=== PATIENT | female | born 1945 | race Caucasian/White ===

== ENCOUNTER 2016-02-19 23:16 | Inpatient (IN) | payer OTHER ==
[2016-02-19] MEDS ORDERED: VANCOMYCIN 1,000 MG in DEXTROSE 5%-WATER - 250 ML IVPB ONE (23:18)
[2016-02-19] MEDS ORDERED: PIPERACILLIN/TAZOB 3.375 GM/50 ML PRE-DOCKED IVPB ONE (23:18)
[2016-02-19 23:24] VITALS: BMI 24.6
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
[2016-02-19] MEDS ORDERED: AZITHROMYCIN IVPB 500 MG in DEXTROSE 5%-WATER - 250 ML IVPB ONE (23:34)
[2016-02-19] MEDS ORDERED: PANTOPRAZOLE SODIUM 40 MG in SODIUM CHLORIDE 100 ML IVPB ONE (23:34)
[2016-02-19] MEDS ORDERED: methylPREDNISolone NA SUCC 125 MG/2 ML VIAL IVPB ONE (23:34)
[2016-02-19] MEDS ORDERED: SODIUM CHLORIDE 500 ML IV STA (23:37)
[2016-02-20] MEDS ORDERED: VANCOMYCIN 1 GRAM (PRE-DOCKED) 250 ML IVPB ONE (00:42)
[2016-02-20 00:56] LABS: BASO % 0.3 % (0-2.0); HEMATOCRIT 34.8 % (32.4-45.2); HEMOGLOBIN 11.6 GM/dL (10.7-15.3); LYMPH % 11.6 % (8-40); MCH 29.9 pg (25.7-33.7); MCHC 33.2 g/dl (32.0-36.0); MEAN CELL VOLUME 89.9 fl (80-96); MEAN PLT VOLUME 8.6 fl (7.5-11.1); MONO % 5.7 % (3.8-10.2); NEUT % 82.4 % (42.8-82.8); PLATELET COUNT 192 K/MM3 (134-434); RBC 3.87 M/mm3 (3.60-5.2); RDW 16.4 % (11.6-15.6)
[2016-02-20 01:08] LABS: INR 1.31 (0.82-1.09); PROTHROMBIN TIME (PATIENT) 14.5 SEC (9.98-11.88)
[2016-02-20 01:09] LABS: VENOUS PH 7.61 (7.31-7.41); VENOUS PO2 41.1 mmHg (30-40)
[2016-02-20 01:10] LABS: VENOUS PC02 23.3 mmHg (41-51)
[2016-02-20 01:10] LABS: ACTIVATED PTT 29.6 SECONDS (26.9-34.4)
[2016-02-20 01:17] LABS: ALBUMIN 3.1 g/dl (3.4-5.0); ANION GAP 9 (8-16); BILIRUBIN,TOTAL 0.8 mg/dL (0.2-1.0); BLOOD UREA NITROGEN 29 mg/dL (7-18); CALCIUM 8.5 mg/dL (8.5-10.1); CHLORIDE 97 mmol/L (98-107); CO2 24 mmol/L (21-32); CREATININE 0.8 mg/dL (0.55-1.02); GLUCOSE,RANDOM 110 mg/dL (74-106); POTASSIUM 3.2 mmol/L (3.5-5.1); SGOT/AST 13 U/L (15-37); SGPT/ALT 14 U/L (12-78); SODIUM 130 mmol/L (136-145); TOT PROT 6.4 g/dl (6.4-8.2)
[2016-02-20] MEDS ORDERED: methylPREDNISolone NA SUCC 125 MG/2 ML VIAL ONE (01:18)
[2016-02-20 01:20] LABS: ALK PHOS 53 U/L (45-117); CREATINE PHOSPHOKINASE 38 IU/L (26-192)
[2016-02-20] MEDS ORDERED: POTASSIUM CHLORIDE 40 MEQ/30 ML UNIT DOSE CUP PEG ONE (01:26)
[2016-02-20] MEDS ORDERED: IBUPROFEN 800 MG/8 ML IJ IVPB ONE ×2 (02:05→05:00)
[2016-02-20] MEDS ORDERED: PIPERACILLIN/TAZOB 3.375 GM 50 ML IVPB ONE (02:07)
[2016-02-20] MEDS ORDERED: ALBUTEROL SO4 2.5/IPRATROPIUM 0.5 INH SOL 3 ML VIAL.NEB. NEB PRN (02:36)
[2016-02-20] MEDS ORDERED: POTASSIUM CHLORIDE 40 MEQ/30 ML UNIT DOSE CUP ONE (03:20)
[2016-02-20] MEDS ORDERED: AZITHROMYCIN IVPB 250 ML IVPB ONE (03:20)
[2016-02-20] MEDS: methylPREDNISolone NA SUCC 40 MG/1 ML VIAL IVPB SCH ×3 (05:00→22:13)
[2016-02-20] MEDS: INSULIN SLIDING SCALE (NOVOLOG) 1 VIAL SQ SCH ×4 (07:06→22:13)
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
[2016-02-20 08:50] LABS: BASO % 0.2 % (0-2.0); HEMOGLOBIN 10.2 GM/dL (10.7-15.3); LYMPH % 7.5 % (8-40); MCH 31.1 pg (25.7-33.7); MCHC 34.1 g/dl (32.0-36.0); MEAN CELL VOLUME 91.1 fl (80-96); MEAN PLT VOLUME 8.6 fl (7.5-11.1); MONO % 7.7 % (3.8-10.2); NEUT % 84.6 % (42.8-82.8); PLATELET COUNT 145 K/MM3 (134-434); RBC 3.29 M/mm3 (3.60-5.2); RDW 16.5 % (11.6-15.6); WHITE BLOOD COUNT 7.2 K/mm3 (4.0-10.0)
[2016-02-20 09:20] LABS: ALBUMIN 2.7 g/dl (3.4-5.0); ANION GAP 3 (8-16); BLOOD UREA NITROGEN 25 mg/dL (7-18); CALCIUM 8.1 mg/dL (8.5-10.1); CHLORIDE 99 mmol/L (98-107); CO2 25 mmol/L (21-32); GLUCOSE,RANDOM 144 mg/dL (74-106); SODIUM 127 mmol/L (136-145)
[2016-02-20 09:28] LABS: ALK PHOS 43 U/L (45-117); BILIRUBIN,TOTAL 0.7 mg/dL (0.2-1.0); CREATINE PHOSPHOKINASE 36 IU/L (26-192); CREATININE 0.6 mg/dL (0.55-1.02); SGOT/AST 10 U/L (15-37); SGPT/ALT 12 U/L (12-78); TOT PROT 5.6 g/dl (6.4-8.2)
[2016-02-20] MEDS: PIPERACILLIN/TAZOB 4.5 GM/100 ML PRE-DOCKED IVPB SCH ×2 (10:32→18:45)
[2016-02-20] MEDS: HEPARIN NA (PORCINE) 5,000 UNITS/ML 1ML VIAL SQ SCH ×2 (10:33→22:11)
[2016-02-20] MEDS: PANTOPRAZOLE SODIUM 100 ML IVPB SCH (10:33)
[2016-02-20] MEDS: ACETAMINOPHEN 325 MG TABLET (FP) PO PRN (11:21)
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
[2016-02-20] MEDS ORDERED: BISACODYL 10 MG SUPP.RECT RC PRN (13:04)
[2016-02-20] MEDS ORDERED: DEXTROSE 5%-0.45% SALINE 1,000 ML IV SCH (13:15)
[2016-02-20 13:35] LABS: CREATINE PHOSPHOKINASE 38 IU/L (26-192)
[2016-02-20 13:42] LABS: ARTERIAL BLD GAS O2 SATURATION 98.9 % (90-98.9); ARTERIAL BLOOD GAS BASE EXCESS 1.3 meq/l (-2-2); ARTERIAL BLOOD GAS PCO2 24.2 mmHg (35-45)
[2016-02-20 13:48] LABS: ALLENS TEST POSITIVE; ARTERIAL BLOOD GAS pH 7.57 (7.35-7.45)
[2016-02-20] MEDS ORDERED: MIDODRINE HCL 2.5 MG TABLET PO SCH (14:00)
[2016-02-20] MEDS: VANCOMYCIN 1 GRAM (PRE-DOCKED) 250 ML IVPB SCH (14:26)
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
[2016-02-20] MEDS: D5-1/2NS+40 MEQ KCL - 1,000 ML IV SCH (15:44)
--- NOTE | 2016-02-20 16:07 | EKG ---
Test Reason : Blood Pressure : / mmHG Vent. Rate : 067 BPM Atrial Rate : 067 BPM P-R Int : 126 ms QRS Dur : 072 ms QT Int : 430 ms P-R-T Axes : 053 060 089 degrees QTc Int : 454 ms NORMAL SINUS RHYTHM NONSPECIFIC ST AND T WAVE ABNORMALITY ABNORMAL ECG NO PREVIOUS ECGS AVAILABLE Confirmed by ANAYA TYSON MD ([id number]) on 02/20/2016 4:07:05 PM Referred By: Overread By: ANAYA TYSON MD
[2016-02-20] MEDS: ACETAMINOPHEN 1000 MG/100 ML VIAL (NON FORMULARY) IVPB PRN ×2 (17:23→23:23)
[2016-02-20] MEDS: ALBUTEROL SO4 2.5/IPRATROPIUM 0.5 INH SOL 3 ML VIAL.NEB. NEB SCH (18:02)
[2016-02-20] MEDS ORDERED: PNEUMOC 13-VAL CONJ-DIP CRM/PF 0.5 ML DISP.SYRIN IM ONE (19:48)
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
[2016-02-20] MEDS ORDERED: PT OWN MED DRAWER 7, Y5N ONE ×2 (22:06→23:32)
[2016-02-20] MEDS: GABAPENTIN 250 MG/5 ML ORAL SOLUTION, 470 ML BOTTLE PO SCH (22:12)
[2016-02-20] MEDS: SENNOSIDES 8.6MG TABLET (FP) PO SCH (22:13)
[2016-02-20] MEDS: SILVER SULFADIAZINE 1% TOP CREAM 50 GM JAR TP SCH (23:23)
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
[2016-02-21] MEDS: ALBUTEROL SO4 2.5/IPRATROPIUM 0.5 INH SOL 3 ML VIAL.NEB. NEB SCH ×5 (00:31→23:02)
[2016-02-21] MEDS: VANCOMYCIN 1 GRAM (PRE-DOCKED) 250 ML IVPB SCH ×2 (01:34→15:00)
[2016-02-21] MEDS: PIPERACILLIN/TAZOB 4.5 GM/100 ML PRE-DOCKED IVPB SCH ×3 (03:27→18:07)
[2016-02-21] MEDS: ACETAMINOPHEN 325 MG TABLET (FP) PO PRN (06:29)
[2016-02-21] MEDS: GABAPENTIN 250 MG/5 ML ORAL SOLUTION, 470 ML BOTTLE PO SCH ×3 (06:29→22:40)
[2016-02-21] MEDS: valACYclovir HCL 1000 MG TABLET PO SCH ×3 (06:30→22:41)
[2016-02-21] MEDS: INSULIN SLIDING SCALE (NOVOLOG) 1 VIAL SQ SCH ×4 (06:30→22:53)
[2016-02-21] MEDS ORDERED: INSULIN (NOVOLOG) ASPART 100 UNITS/ML 10ML VIAL ONE ×2 (07:14→12:28)
[2016-02-21] MEDS ORDERED: PT OWN MED DRAWER 7, Y5N ONE ×4 (07:15→21:53)
[2016-02-21 07:25] LABS: BASO % 0.1 % (0-2.0); HEMATOCRIT 29.4 % (32.4-45.2); LYMPH % 10.3 % (8-40); MCH 31.2 pg (25.7-33.7); MCHC 34.1 g/dl (32.0-36.0); MEAN CELL VOLUME 91.7 fl (80-96); MEAN PLT VOLUME 8.5 fl (7.5-11.1); MONO % 5.4 % (3.8-10.2); NEUT % 84.2 % (42.8-82.8); PLATELET COUNT 133 K/MM3 (134-434); RDW 16.3 % (11.6-15.6)
[2016-02-21 08:17] LABS: ALBUMIN 2.5 g/dl (3.4-5.0); ALK PHOS 41 U/L (45-117); ANION GAP 11 (8-16); BILIRUBIN,TOTAL 0.5 mg/dL (0.2-1.0); BLOOD UREA NITROGEN 24 mg/dL (7-18); CALCIUM 7.9 mg/dL (8.5-10.1); CHLORIDE 97 mmol/L (98-107); CO2 25 mmol/L (21-32); CREATININE 0.7 mg/dL (0.55-1.02); GLUCOSE,RANDOM 172 mg/dL (74-106); POTASSIUM 3.2 mmol/L (3.5-5.1); SGOT/AST 8 U/L (15-37); SGPT/ALT 14 U/L (12-78); SODIUM 133 mmol/L (136-145); TOT PROT 5.5 g/dl (6.4-8.2)
[2016-02-21] MEDS ORDERED: ESCITALOPRAM OXALATE 5 MG/5 ML PO SCH (10:00)
[2016-02-21] MEDS ORDERED: ASPIRIN 325 MG TABLET PO SCH (10:00)
--- NOTE | 2016-02-21 10:38 | PN ---
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 (short form) - Note 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: awake and alert- wants to watch TV fevers trending down Vital Signs Period Temp Pulse Resp BP Sys/Castanon Pulse Ox Last 24 Hr 99.9 F-103.7 F 69-84 13-20 114-142/60-77 98-98 cor-rrr lungs decreased bs on left abd soft,nt +gt ext no edema aldana with bloody urine CBC, BMP 02/20/16 00:10 02/20/16 00:10 called MICRO influenza antigen negative sputum culture pending blood culture pending urine culture NLF/group D legionella antigen pending no hydronephrosis cxray unchanged Current Medications Acetaminophen (Tylenol -) 650 mg PO Q6H PRN PRN Reason: FEVER OR PAIN Last Admin: 02/21/16 06:29 Dose: 650 mg Albuterol/Ipratropium (Duoneb -) 1 amp NEB Q4H PRN PRN Reason: SHORTNESS OF BREATH Albuterol/Ipratropium (Duoneb -) 1 amp NEB QIDR [facility] Last Admin: 02/21/16 06:30 Dose: 1 amp Bisacodyl (Dulcolax Suppository -) 10 mg RC DAILY PRN PRN Reason: CONSTIPATION Diphenhydramine HCl (Benadryl Injection -) 25 mg IVPUSH HS PRN PRN Reason: INSOMNIA Escitalopram Oxalate (Lexapro Oral Solution -) 2.5 mg PO DAILY [facility] Gabapentin (Neurontin Oral Liquid -) 100 mg PO TID [facility] Last Admin: 02/21/16 06:29 Dose: 100 mg Haloperidol (Haldol -) 0.5 mg PO DAILY [facility] Heparin Sodium (Porcine) (Heparin -) 5,000 unit SQ BID [facility] Last Admin: 02/20/16 22:11 Dose: 5,000 unit Pantoprazole Sodium (Protonix 40mg Ivpb (Pre-Docked)) 100 mls @ 200 mls/hr IVPB DAILY [facility] Last Admin: 02/20/16 10:33 Dose: 200 mls/hr Vancomycin HCl (Vancomycin (Pre-Docked)) 250 mls @ 250 mls/hr IVPB BID@0100, 1300 [facility] Last Admin: 02/21/16 01:34 Dose: 250 mls/hr Azithromycin (Zithromax 500mg Ivpb (Pre-Docked)) 250 mls @ 250 mls/hr IVPB DAILY [facility] Dextrose/Sodium Chloride (D5-1/2ns+40 Meq Kcl -) 1,000 mls @ 75 mls/hr IV ASDIR [facility] Last Admin: 02/20/16 15:44 Dose: 75 mls/hr Insulin Aspart (Novolog Vial Sliding Scale -) 1 vial SQ ACHS [facility] PRN Reason: Protocol Last Admin: 02/21/16 06:30 Dose: 2 units Methylprednisolone Sodium Succinate (Solu-Medrol -) 40 mg IVPB BID [facility] Last Admin: 02/20/16 22:13 Dose: 40 mg Piperacillin Sod/Tazobactam Sod (Zosyn 4.5gm Ivpb (Pre-Docked)) 4.5 gm IVPB Q8H -IV [facility] Last Admin: 02/21/16 03:27 Dose: 4.5 gm Senna (Senna -) 2 tab PO BID [facility] Last Admin: 02/20/16 22:13 Dose: 2 tab Silver Sulfadiazine (Silvadene -) 1 applic TP BID [facility] Stop: 02/27/16 21:59 Last Admin: 02/20/16 23:23 Dose: 1 applic Valacyclovir HCl (Valtrex -) 1,000 mg PO TID [facility] Last Admin: 02/21/16 06:30 Dose: 1,000 mg a/p fevers UTI ?empyema will get chest ct continue vanco/zosyn/zithromax not sure why she is on valtrex- will continue as she is on steroids, will try to contact ME in am f/u labs in am
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
[2016-02-21] MEDS: D5-1/2NS+40 MEQ KCL - 1,000 ML IV SCH ×2 (11:54→15:02)
[2016-02-21] MEDS: PANTOPRAZOLE SODIUM 100 ML IVPB SCH (11:55)
[2016-02-21] MEDS: HALOPERIDOL 0.5 MG TABLET PO SCH (12:22)
[2016-02-21] MEDS: HEPARIN NA (PORCINE) 5,000 UNITS/ML 1ML VIAL SQ SCH ×2 (12:22→22:39)
[2016-02-21] MEDS: SENNOSIDES 8.6MG TABLET (FP) PO SCH ×2 (12:22→22:40)
[2016-02-21] MEDS: SILVER SULFADIAZINE 1% TOP CREAM 50 GM JAR TP SCH ×2 (12:23→22:40)
[2016-02-21 12:27] LABS: ARTERIAL BLD GAS O2 SATURATION 98.1 % (90-98.9); ARTERIAL BLOOD GAS BASE EXCESS -0.2 meq/l (-2-2); ARTERIAL BLOOD GAS PO2 92.5 mmHg (70-100)
[2016-02-21 12:31] LABS: ALLENS TEST POSITIVE
[2016-02-21 12:34] LABS: ARTERIAL BLOOD GAS PCO2 28.3 mmHg (35-45)
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
[2016-02-21 12:45] LABS: BASO % 0.1 % (0-2.0); HEMATOCRIT 27.8 % (32.4-45.2); HEMOGLOBIN 9.2 GM/dL (10.7-15.3); LYMPH % 11.3 % (8-40); MCH 30.3 pg (25.7-33.7); MEAN CELL VOLUME 91.8 fl (80-96); MEAN PLT VOLUME 8.8 fl (7.5-11.1); MONO % 7.5 % (3.8-10.2); NEUT % 81.1 % (42.8-82.8); PLATELET COUNT 126 K/MM3 (134-434); RBC 3.03 M/mm3 (3.60-5.2); RDW 16.2 % (11.6-15.6); WHITE BLOOD COUNT 6.4 K/mm3 (4.0-10.0)
[2016-02-21] MEDS ORDERED: KCL 10 MEQ IVPB 100 ML IVPB SCH (13:00)
[2016-02-21] MEDS: AZITHROMYCIN IVPB 250 ML IVPB SCH (13:06)
[2016-02-21] MEDS: methylPREDNISolone NA SUCC 40 MG/1 ML VIAL IVPB SCH ×2 (13:07→22:39)
[2016-02-21 13:13] LABS: ALBUMIN 2.4 g/dl (3.4-5.0); ANION GAP 9 (8-16); BILIRUBIN,TOTAL 0.5 mg/dL (0.2-1.0); BLOOD UREA NITROGEN 24 mg/dL (7-18); CALCIUM 7.9 mg/dL (8.5-10.1); CHLORIDE 99 mmol/L (98-107); CO2 24 mmol/L (21-32); CREATININE 0.6 mg/dL (0.55-1.02); GLUCOSE,RANDOM 188 mg/dL (74-106); SGOT/AST 11 U/L (15-37); SGPT/ALT 13 U/L (12-78); SODIUM 132 mmol/L (136-145); TOT PROT 5.2 g/dl (6.4-8.2)
[2016-02-21 13:14] LABS: ALK PHOS 38 U/L (45-117)
[2016-02-21 13:42] LABS: POTASSIUM 2.8 mmol/L (3.5-5.1)
--- NOTE | 2016-02-21 14:16 | CONSULT ---
Consult Consult Specialty:: Cardiology Referred by:: Dr. Arvizu Reason for Consultation:: Need anticoagulation for afib? - History of Present Illness History of Present Illness: 70 yo female with h/o cord compression, anterior/posterior fracture at C6, trach /vent dependent, PEG, reported paroxysmal atrial fibrillation, COPD, and DM, who was admitted from [facility] on 02/19/16 for a fever w/ temp 105 degrees. Currently being treated for pneumonia. Patient was also noted to new hematuria following aldana catheter placement, which was thought to be due trauma from aldana insertion and is currently resolving. Cardiology was consulted to address need for anticoagulation versus aspirin for her reported atrial fibrillation. Patient currently denies any chest pain and is comfortable on vent. 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 Vent dependent. ) Cardio/Vascular: Yes: AFIB (paroxsymal) Pulmonary: Yes: COPD Gastrointestinal: Yes: GERD Renal/: Yes: Renal Inusuff, Hematuria, Neurogenic Bladder Infectious Disease: Yes: Other (High fever) Musculoskeletal: Yes: Other (Quadruplegia) Endocrine: Yes: Diabetes Mellitus - Alcohol/Substance Use Hx Alcohol Use: No History of Substance Use: reports: None - Smoking History Smoking history: Unknown if ever smoked Home Medications - Allergies Allergies/Adverse Reactions: Allergies Allergy/AdvReac Type Severity Reaction Status Date / Time No Known Allergies Allergy Verified 02/19/16 23:18 - Home Medications Home Medications: Ambulatory Orders Acetaminophen [Tylenol .Regular Strength -] 650 tablet GT Q4H PRN 02/21/16 Aspirin 325 mg GT DAILY 02/21/16 Bisacodyl Suppository [Dulcolax Suppository -] 10 mg RC DAILY PRN 02/21/16 Diphenhydramine 25 mg GT HS PRN 02/21/16 Docusate Liquid 100 mg GT Q8H 02/21/16 Escitalopram Oxalate [Lexapro 5mg/5mL Oral Solution -] 2.5 mg GT DAILY 02/21/16 Gabapentin Liquid [Neurontin Oral Liquid -] 100 mg GT Q8H 02/21/16 Haloperidol 0.5 mg GT DAILY 02/21/16 Heparin - 5,000 unit SQ Q8H 02/21/16 Insulin Sliding Scale ACHS PRN 02/21/16 Midodrine HCl 2.5 mg GT TID 02/21/16 Oxycodone HCl 5 mg GT Q4H PRN 02/21/16 Pantoprazole Sodium [Protonix] 40 mg PEG Q12H 02/21/16 Polyethylene Glycol 17 grams GT DAILY 02/21/16 Senna Concentrate 17.2 mg GT Q12H 02/21/16 Silvadene 1 applic TP BID 02/21/16 Sodium Chloride 1 gm GT 02/21/16 Sodium Chloride 1 gm GT Q4H 02/21/16 Valacyclovir HCl [Valtrex] 1 gm GT Q8H 02/21/16 Family Disease History - Family Disease History Family History: Unable to Obtain (Patient is non-verbal) Review of Systems Findings/Remarks: ROS limited due to patient being non-verbal - Review of Systems Cardiovascular: denies: Chest Pain, Palpitations, Shortness of Breath Respiratory: denies: SOB Gastrointestinal: reports: No Symptoms Genitourinary: reports: No Symptoms Vital Signs: Vital Signs Temperature 99.9 F H 02/21/16 09:57 Pulse Rate 56 L 02/21/16 10:36 Respiratory Rate 16 02/21/16 10:36 Blood Pressure 130/62 02/21/16 09:57 O2 Sat by Pulse Oximetry (%) 97 02/21/16 10:36 Constitutional: Yes: No Distress Eyes: Yes: Conjunctiva Clear, EOM Intact, PERRL HENT: Yes: Other (Trachecostomy present) Respiratory: Yes: CTA Bilaterally, Mechanically Ventilated Gastrointestinal: Yes: Normal Bowel Sounds, Soft. No: Tenderness Cardiovascular: Yes: Regular Rate and Rhythm JVD: No Heart Sounds: Yes: S1, S2 Murmur: No: Systolic Murmur Edema: No Peripheral Pulses WNL: Yes Neurological: Yes: Alert - Other Data Labs, Other Data: INR, PTT INR 1.31 (0.82-1.09) H 02/20/16 00:10 02/20/16 ECG: Sinus rhythm Imaging - Results Chest X-ray: Report Reviewed (02/21/16) Assessment/Plan 70 yo female with h/o cord compression, anterior/posterior fracture at C6, trach /vent dependent, PEG, reported paroxysmal atrial fibrillation, COPD, and DM, who was admitted from [facility] on 02/19/16 with fevers and is currently being treated for pneumonia. Patient also developed hematuria following aldana catheter placement, which was thought to be due trauma and is currently resolving. Cardiology was consulted to address need for anticoagulation versus aspirin for her reported atrial fibrillation. ECG on 02/20/16 demonstrates sinus rhythm. Patient's [id number] score = 3 (3.2% year stroke risk). HAS-BLED score = 1 (1- 1.5% rate of major bleeding with 1 year of oral anticoagulation). Ideally, patient should be on anticoagulation for stroke prevention. However, given her recent hematuria and current clinical condition, would avoid anticoagulation other than DVT prophylaxis at this time. The benefit of anticoagulation from terminal manager perspective is questionable in this patient particularly given no documented evidence of prior afib and patient currently remains in sinus rhythm. The benefit of aspirin alone for thrombembolic afib prophylaxis is also questionable per more recent recommendations. Would not resume aspirin and would continue only DVT prophylaxis if patient's hematuria has resolved and remains stable. Will see prn. Call with questions.
[2016-02-21] MEDS: KCL 10 MEQ IVPB 100 ML IVPB SCH ×3 (17:09→20:08)
[2016-02-21] MEDS: ACETAMINOPHEN 1000 MG/100 ML VIAL (NON FORMULARY) IVPB PRN (23:21)
[2016-02-22] MEDS: VANCOMYCIN 1 GRAM (PRE-DOCKED) 250 ML IVPB SCH ×2 (01:56→15:32)
[2016-02-22] MEDS: PIPERACILLIN/TAZOB 4.5 GM/100 ML PRE-DOCKED IVPB SCH ×3 (03:20→17:55)
[2016-02-22] MEDS: ACETAMINOPHEN 1000 MG/100 ML VIAL (NON FORMULARY) IVPB PRN ×3 (05:44→18:12)
[2016-02-22] MEDS: ALBUTEROL SO4 2.5/IPRATROPIUM 0.5 INH SOL 3 ML VIAL.NEB. NEB SCH ×4 (06:28→23:25)
[2016-02-22 07:30] LABS: ALBUMIN 2.4 g/dl (3.4-5.0); ANION GAP 9 (8-16); BILIRUBIN,TOTAL 0.6 mg/dL (0.2-1.0); BLOOD UREA NITROGEN 18 mg/dL (7-18); CHLORIDE 95 mmol/L (98-107); CO2 26 mmol/L (21-32); CREATININE 0.6 mg/dL (0.55-1.02); GLUCOSE,RANDOM 157 mg/dL (74-106); MAGNESIUM 1.9 mg/dL (1.8-2.4); POTASSIUM 3.6 mmol/L (3.5-5.1); SGOT/AST 11 U/L (15-37); SGPT/ALT 18 U/L (12-78); SODIUM 130 mmol/L (136-145); TOT PROT 5.5 g/dl (6.4-8.2)
[2016-02-22 07:31] LABS: ALK PHOS 38 U/L (45-117)
[2016-02-22 07:32] LABS: HEMOGLOBIN 9.5 GM/dL (10.7-15.3); MCH 29.9 pg (25.7-33.7); MCHC 32.9 g/dl (32.0-36.0); MEAN CELL VOLUME 91.1 fl (80-96); MEAN PLT VOLUME 9.5 fl (7.5-11.1); PLATELET COUNT 150 K/MM3 (134-434); RBC 3.18 M/mm3 (3.60-5.2); RDW 16.3 % (11.6-15.6); WHITE BLOOD COUNT 6.5 K/mm3 (4.0-10.0)
[2016-02-22] MEDS: GABAPENTIN 250 MG/5 ML ORAL SOLUTION, 470 ML BOTTLE PO SCH (08:38)
[2016-02-22] MEDS: INSULIN SLIDING SCALE (NOVOLOG) 1 VIAL SQ SCH ×4 (08:39→23:47)
[2016-02-22] MEDS: valACYclovir HCL 1000 MG TABLET PO SCH (08:39)
--- NOTE | 2016-02-22 09:32 | PN ---
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 (short form) - Note 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: awake and alert- wants to watch TV remains febrile looks comforable gt dislodged overnight Vital Signs Period Temp Pulse Resp BP Sys/Castanon Pulse Ox Last 24 Hr 99.5 F-102.1 F 56-90 16-21 115-146/60-96 97-98 cor-rrr lungs decreased abd- soft, drainage at GT site ext trace edema aldana now clear urine CBC, BMP 02/20/16 00:10 02/20/16 00:10 called MICRO influenza antigen negative sputum culture pending blood culture pending urine culture NLF/group D legionella antigen pending no hydronephrosis cxray unchanged a/p fevers UTI ?empyema will get chest ct- continue vanco/zosyn/zithromax not sure why she is on valtrex- will continue as she is on steroids, will try to contact [facility] in am f/u labs in am nursing tech contacted- labs/micro are not being transmitted via computer? have asked micro to fax results to the floor today until problem can be fixed
[2016-02-22] MEDS: HEPARIN NA (PORCINE) 5,000 UNITS/ML 1ML VIAL SQ SCH ×2 (10:17→23:33)
[2016-02-22] MEDS: methylPREDNISolone NA SUCC 40 MG/1 ML VIAL IVPB SCH ×2 (11:03→23:33)
[2016-02-22] MEDS: SILVER SULFADIAZINE 1% TOP CREAM 50 GM JAR TP SCH ×2 (11:03→23:33)
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
--- NOTE | 2016-02-22 11:56 | PN ---
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, Physician - Current Medication List Current Medications: Active Medications Acetaminophen (Tylenol -) 650 mg PO Q6H PRN PRN Reason: FEVER OR PAIN Last Admin: 02/21/16 06:29 Dose: 650 mg Acetaminophen (Ofirmev Injection -) 1,000 mg IVPB Q8H PRN Last Admin: 02/22/16 05:44 Dose: 1,000 mg Albuterol/Ipratropium (Duoneb -) 1 amp NEB Q4H PRN PRN Reason: SHORTNESS OF BREATH Albuterol/Ipratropium (Duoneb -) 1 amp NEB QIDR [facility] Last Admin: 02/22/16 11:02 Dose: 1 amp Bisacodyl (Dulcolax Suppository -) 10 mg RC DAILY PRN PRN Reason: CONSTIPATION Diphenhydramine HCl (Benadryl Injection -) 25 mg IVPUSH HS PRN PRN Reason: INSOMNIA Haloperidol (Haldol -) 0.5 mg PO DAILY [facility] Last Admin: 02/21/16 12:22 Dose: 0.5 mg Heparin Sodium (Porcine) (Heparin -) 5,000 unit SQ BID [facility] Last Admin: 02/22/16 10:17 Dose: 5,000 unit Pantoprazole Sodium (Protonix 40mg Ivpb (Pre-Docked)) 100 mls @ 200 mls/hr IVPB DAILY [facility] Last Admin: 02/21/16 11:55 Dose: 200 mls/hr Vancomycin HCl (Vancomycin (Pre-Docked)) 250 mls @ 250 mls/hr IVPB BID@0100, 1300 [facility] Last Admin: 02/22/16 01:56 Dose: 250 mls/hr Azithromycin (Zithromax 500mg Ivpb (Pre-Docked)) 250 mls @ 250 mls/hr IVPB DAILY [facility] Last Admin: 02/21/16 13:06 Dose: 250 mls/hr Dextrose/Sodium Chloride (D5-1/2ns+40 Meq Kcl -) 1,000 mls @ 75 mls/hr IV ASDIR [facility] Last Admin: 02/21/16 15:02 Dose: Not Given Insulin Aspart (Novolog Vial Sliding Scale -) 1 vial SQ ACHS [facility] PRN Reason: Protocol Last Admin: 02/22/16 08:39 Dose: Not Given Methylprednisolone Sodium Succinate (Solu-Medrol -) 30 mg IVPB BID [facility] Last Admin: 02/22/16 11:03 Dose: 30 mg Piperacillin Sod/Tazobactam Sod (Zosyn 4.5gm Ivpb (Pre-Docked)) 4.5 gm IVPB Q8H -IV [facility] Last Admin: 02/22/16 10:16 Dose: 4.5 gm Silver Sulfadiazine (Silvadene -) 1 applic TP BID [facility] Stop: 02/27/16 21:59 Last Admin: 02/22/16 11:03 Dose: 1 applic Valacyclovir HCl (Valtrex -) 1,000 mg PO TID [facility] - Objective Vital Signs: Vital Signs Temperature 102.1 F H 02/22/16 08:09 Pulse Rate 77 02/22/16 10:30 Respiratory Rate 14 02/22/16 10:30 Blood Pressure 146/90 02/22/16 08:09 O2 Sat by Pulse Oximetry (%) 98 02/22/16 10:30 Cardiovascular: Yes: S1, S2 Respiratory: Yes: CTA Bilaterally Gastrointestinal: Yes: Normal Bowel Sounds, Soft Labs: INR, PTT INR 1.31 (0.82-1.09) H 02/20/16 00:10 Problem List - Problems (1) Afib Code(s): I48.91 - UNSPECIFIED ATRIAL FIBRILLATION (2) COPD (chronic obstructive pulmonary disease) Code(s): J44.9 - CHRONIC OBSTRUCTIVE PULMONARY DISEASE, UNSPECIFIED Qualifiers : COPD type: unspecified COPD Qualified Code(s): J44.9 - Chronic obstructive pulmonary disease, unspecified (3) Diabetes Code(s): E11.9 - TYPE 2 DIABETES MELLITUS WITHOUT COMPLICATIONS (4) HCAP (healthcare-associated pneumonia) Code(s): J18.9 - PNEUMONIA, UNSPECIFIED ORGANISM (5) Mood disorder Code(s): F39 - UNSPECIFIED MOOD [AFFECTIVE] DISORDER (6) Paralysis Code(s): G83.9 - PARALYTIC SYNDROME, UNSPECIFIED (7) Ventilator dependent Code(s): Z99.11 - DEPENDENCE ON RESPIRATOR [VENTILATOR] STATUS (8) GERD (gastroesophageal reflux disease) Code(s): K21.9 - GASTRO-ESOPHAGEAL REFLUX DISEASE WITHOUT ESOPHAGITIS (9) PEG tube malfunction Code(s): K94.23 - GASTROSTOMY MALFUNCTION Assessment/Plan 1. AE COPD APPRECIATE ID & PULM CONSULTS IV STEROIDS & ABx CXr -> PNA 2. FEVER/HCAP Tmax 102.1 UCx PENDING BCx RE-ORDERED APAP SEE #1 3. AFIB EKG NSR CASE D/W CARDIO/APPRECIATE CONSULT ONLY SQ HEPARIN NO ASA or OTHER AC (RISK > BENEFIT) APPRECIATE RENAL RECOMMENDATION -> CARDIO CONSULTED TO DETERMINE NEED FOR AC 4. DM2 BGM ISS 5. MOOD D/O SSRI 6. QUADRAPLEGIA/VENT DEPENDENT APPRECIATE PULM CONSULT FROM [facility] 7. GERD IV PPI PEG NOT FUNCTIONAL -> GI & GEN SURG CONSULTED NUTRITION FOR PEG FEEDS IVF 8. 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
[2016-02-22] MEDS: HALOPERIDOL 0.5 MG TABLET PO SCH (12:00)
[2016-02-22 12:16] LABS: ARTERIAL BLD GAS O2 SATURATION 99.1 % (90-98.9); ARTERIAL BLOOD GAS BASE EXCESS 0.2 meq/l (-2-2)
[2016-02-22 12:22] LABS: ALLENS TEST POSITIVE; ARTERIAL BLOOD GAS pH 7.48 (7.35-7.45)
[2016-02-22 12:23] LABS: ARTERIAL BLOOD GAS PCO2 30.6 mmHg (35-45)
[2016-02-22] MEDS: PANTOPRAZOLE SODIUM 100 ML IVPB SCH (12:30)
[2016-02-22 13:34] LABS: BASO % 0.3 % (0-2.0); HEMATOCRIT 28.7 % (32.4-45.2); HEMOGLOBIN 9.5 GM/dL (10.7-15.3); MCH 30.3 pg (25.7-33.7); MCHC 33.2 g/dl (32.0-36.0); MEAN CELL VOLUME 91.5 fl (80-96); MEAN PLT VOLUME 8.8 fl (7.5-11.1); MONO % 6.7 % (3.8-10.2); PLATELET COUNT 129 K/MM3 (134-434); RBC 3.14 M/mm3 (3.60-5.2); RDW 16.5 % (11.6-15.6); WHITE BLOOD COUNT 5.5 K/mm3 (4.0-10.0)
[2016-02-22 13:59] LABS: ALBUMIN 2.6 g/dl (3.4-5.0); ALK PHOS 41 U/L (45-117); ANION GAP 11 (8-16); BILIRUBIN,TOTAL 0.5 mg/dL (0.2-1.0); BLOOD UREA NITROGEN 17 mg/dL (7-18); CALCIUM 7.9 mg/dL (8.5-10.1); CHLORIDE 95 mmol/L (98-107); CO2 24 mmol/L (21-32); CREATININE 0.5 mg/dL (0.55-1.02); GLUCOSE,RANDOM 137 mg/dL (74-106); POTASSIUM 3.4 mmol/L (3.5-5.1); SGOT/AST 12 U/L (15-37); SGPT/ALT 17 U/L (12-78); SODIUM 130 mmol/L (136-145); TOT PROT 5.4 g/dl (6.4-8.2)
[2016-02-22] MEDS: AZITHROMYCIN IVPB 250 ML IVPB SCH (14:00)
[2016-02-22] MEDS: valACYclovir HCL 500 MG TABLET (FP) PO SCH (15:06)
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
[2016-02-22] MEDS: D5-NS + 40 MEQ KCL - 1,000 ML IV SCH (17:56)
[2016-02-22] MEDS: D5-1/2NS+40 MEQ KCL - 1,000 ML IV SCH (18:00)
[2016-02-23] MEDS: valACYclovir HCL 500 MG TABLET (FP) PO SCH ×2 (01:06→08:25)
[2016-02-23] MEDS: PIPERACILLIN/TAZOB 4.5 GM/100 ML PRE-DOCKED IVPB SCH ×3 (02:28→17:28)
[2016-02-23] MEDS: VANCOMYCIN 1,250 MG in DEXTROSE 5%-WATER - 250 ML IVPB SCH (04:05)
[2016-02-23] MEDS: ACETAMINOPHEN 1000 MG/100 ML VIAL (NON FORMULARY) IVPB PRN ×3 (05:30→18:12)
[2016-02-23] MEDS: ALBUTEROL SO4 2.5/IPRATROPIUM 0.5 INH SOL 3 ML VIAL.NEB. NEB SCH ×3 (06:00→19:45)
[2016-02-23] MEDS: INSULIN SLIDING SCALE (NOVOLOG) 1 VIAL SQ SCH ×4 (06:26→22:51)
[2016-02-23 08:12] LABS: BASO % 0.2 % (0-2.0); HEMATOCRIT 27.3 % (32.4-45.2); HEMOGLOBIN 9.3 GM/dL (10.7-15.3); LYMPH % 12.7 % (8-40); MCH 31.2 pg (25.7-33.7); MCHC 34.3 g/dl (32.0-36.0); MEAN CELL VOLUME 91.1 fl (80-96); MEAN PLT VOLUME 8.5 fl (7.5-11.1); NEUT % 82.1 % (42.8-82.8); PLATELET COUNT 134 K/MM3 (134-434); RDW 16.1 % (11.6-15.6); WHITE BLOOD COUNT 4.8 K/mm3 (4.0-10.0)
[2016-02-23 08:51] LABS: CHLORIDE 96 mmol/L (98-107); POTASSIUM 3.1 mmol/L (3.5-5.1); SODIUM 130 mmol/L (136-145)
[2016-02-23 09:03] LABS: ALBUMIN 2.5 g/dl (3.4-5.0); ALK PHOS 36 U/L (45-117); ANION GAP 10 (8-16); BILIRUBIN,TOTAL 0.5 mg/dL (0.2-1.0); BLOOD UREA NITROGEN 13 mg/dL (7-18); CALCIUM 8.2 mg/dL (8.5-10.1); CO2 24 mmol/L (21-32); CREATININE 0.6 mg/dL (0.55-1.02); GLUCOSE,RANDOM 163 mg/dL (74-106); MAGNESIUM 1.8 mg/dL (1.8-2.4); PHOSPHOROUS 1.8 mg/dL (2.5-4.9); SGOT/AST 9 U/L (15-37); SGPT/ALT 18 U/L (12-78); TOT PROT 5.3 g/dl (6.4-8.2)
[2016-02-23] MEDS ORDERED: PT OWN MED DRAWER 7, Y5N ONE ×2 (09:23→18:26)
--- NOTE | 2016-02-23 09:30 | PN ---
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 (short form) - Note 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: awake and alert, remains comfortable but febrile Vital Signs Period Temp Pulse Resp BP Sys/Castanon Pulse Ox Last 24 Hr 98.3 F-102.8 F 68-96 14-24 98-137/56-76 96-98 cor-rrr lungs clear abd soft,nt ext no edema STILL NO LABS IN THE COMPUTER- waiting for fax from lab called MICRO blood culture negative positive urine culture- f/u results today a/p FUO UTI ?empyema will get chest ct- ct scan abd/pelvis as well for FUO continue vanco/zosyn/zithromax f/u labs today f/u cultures today acute care certified nursing assistant contacted- labs/micro are not being transmitted via computer? have asked micro to fax results to the floor today until problem can be fixed
[2016-02-23] MEDS: methylPREDNISolone NA SUCC 40 MG/1 ML VIAL IVPB SCH ×2 (10:00→22:52)
[2016-02-23] MEDS: SILVER SULFADIAZINE 1% TOP CREAM 50 GM JAR TP SCH ×2 (10:47→23:00)
[2016-02-23] MEDS: HEPARIN NA (PORCINE) 5,000 UNITS/ML 1ML VIAL SQ SCH ×2 (10:48→22:50)
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
--- NOTE | 2016-02-23 11:52 | PN ---
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, Physician - Current Medication List Current Medications: Active Medications Acetaminophen (Tylenol -) 650 mg PO Q6H PRN PRN Reason: FEVER OR PAIN Last Admin: 02/21/16 06:29 Dose: 650 mg Acetaminophen (Ofirmev Injection -) 1,000 mg IVPB Q6H PRN PRN Reason: FEVER Last Admin: 02/23/16 05:30 Dose: 1,000 mg Albuterol/Ipratropium (Duoneb -) 1 amp NEB Q4H PRN PRN Reason: SHORTNESS OF BREATH Albuterol/Ipratropium (Duoneb -) 1 amp NEB QIDR [facility] Last Admin: 02/23/16 06:00 Dose: 1 amp Bisacodyl (Dulcolax Suppository -) 10 mg RC DAILY PRN PRN Reason: CONSTIPATION Diphenhydramine HCl (Benadryl Injection -) 25 mg IVPUSH HS PRN PRN Reason: INSOMNIA Haloperidol (Haldol -) 0.5 mg PO DAILY [facility] Last Admin: 02/22/16 12:00 Dose: Not Given Heparin Sodium (Porcine) (Heparin -) 5,000 unit SQ BID [facility] Last Admin: 02/23/16 10:48 Dose: 5,000 unit Pantoprazole Sodium (Protonix 40mg Ivpb (Pre-Docked)) 100 mls @ 200 mls/hr IVPB DAILY [facility] Last Admin: 02/22/16 12:30 Dose: 200 mls/hr Azithromycin (Zithromax 500mg Ivpb (Pre-Docked)) 250 mls @ 250 mls/hr IVPB DAILY [facility] Last Admin: 02/22/16 14:00 Dose: 250 mls/hr Dextrose/Sodium Chloride (Dextrose 5%-Normal Saline+40 Meq Kcl -) 1,000 mls @ 83 mls/hr IV ASDIR [facility] Last Admin: 02/22/16 17:56 Dose: 83 mls/hr Vancomycin HCl 1,250 mg/ (Dextrose) 250 mls @ 150 mls/hr IVPB DAILY@0100 [facility] Last Admin: 02/23/16 04:05 Dose: 150 mls/hr Insulin Aspart (Novolog Vial Sliding Scale -) 1 vial SQ ACHS [facility] PRN Reason: Protocol Last Admin: 02/23/16 06:26 Dose: Not Given Methylprednisolone Sodium Succinate (Solu-Medrol -) 30 mg IVPB BID [facility] Last Admin: 02/23/16 10:00 Dose: 30 mg Piperacillin Sod/Tazobactam Sod (Zosyn 4.5gm Ivpb (Pre-Docked)) 4.5 gm IVPB Q8H -IV [facility] Last Admin: 02/23/16 10:46 Dose: 4.5 gm Silver Sulfadiazine (Silvadene -) 1 applic TP BID [facility] Stop: 02/27/16 21:59 Last Admin: 02/23/16 10:47 Dose: 1 applic Valacyclovir HCl (Valtrex -) 1,000 mg PO TID [facility] Last Admin: 02/23/16 08:25 Dose: Not Given - Objective Vital Signs: Vital Signs Temperature 102.8 F H 02/23/16 06:00 Pulse Rate 79 02/23/16 06:00 Respiratory Rate 16 02/23/16 09:45 Blood Pressure 133/72 02/23/16 06:00 O2 Sat by Pulse Oximetry (%) 96 02/22/16 21:42 Cardiovascular: Yes: Regular Rate and Rhythm, S1, S2 Respiratory: Yes: CTA Bilaterally Gastrointestinal: Yes: Normal Bowel Sounds, Soft Labs: CBC, BMP 02/23/16 06:45 02/23/16 06:45 INR, PTT INR 1.31 (0.82-1.09) H 02/20/16 00:10 Problem List - Problems (1) Afib Code(s): I48.91 - UNSPECIFIED ATRIAL FIBRILLATION (2) COPD (chronic obstructive pulmonary disease) Code(s): J44.9 - CHRONIC OBSTRUCTIVE PULMONARY DISEASE, UNSPECIFIED Qualifiers : COPD type: unspecified COPD Qualified Code(s): J44.9 - Chronic obstructive pulmonary disease, unspecified (3) Diabetes Code(s): E11.9 - TYPE 2 DIABETES MELLITUS WITHOUT COMPLICATIONS (4) HCAP (healthcare-associated pneumonia) Code(s): J18.9 - PNEUMONIA, UNSPECIFIED ORGANISM (5) Mood disorder Code(s): F39 - UNSPECIFIED MOOD [AFFECTIVE] DISORDER (6) Paralysis Code(s): G83.9 - PARALYTIC SYNDROME, UNSPECIFIED (7) Ventilator dependent Code(s): Z99.11 - DEPENDENCE ON RESPIRATOR [VENTILATOR] STATUS (8) GERD (gastroesophageal reflux disease) Code(s): K21.9 - GASTRO-ESOPHAGEAL REFLUX DISEASE WITHOUT ESOPHAGITIS (9) PEG tube malfunction Code(s): K94.23 - GASTROSTOMY MALFUNCTION Assessment/Plan 1. AE COPD APPRECIATE ID & PULM CONSULTS IV STEROIDS & ABx CXr -> PNA TRACH CHANGED BY ENT 2. FEVER/HCAP Tmax 102.1 -> 102.8 UCx & SPUTUM Cx +joe APAP SEE #1 3. AFIB EKG NSR CASE D/W CARDIO/APPRECIATE CONSULT ONLY SQ HEPARIN NO ASA or OTHER AC (RISK > BENEFIT) APPRECIATE RENAL RECOMMENDATION -> CARDIO CONSULTED TO DETERMINE NEED FOR AC 4. DM2 BGM ISS 5. MOOD D/O SSRI 6. QUADRAPLEGIA/VENT DEPENDENT APPRECIATE PULM CONSULT FROM SNF - PT 7. GERD IV PPI PEG FUNCTIONAL? -> GI & GEN SURG CONSULTED NUTRITION FOR PEG FEEDS IVF GI ON CASE F/U XRay & CT TO F/U ON PEG 8. ABNL LYTES RENAL CONSULT APPRECIATED C/O HEMATURIA APPRECIATE URO CONSULT HAS NONOBST RENAL STONES & SHAYY [employer] FM
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
[2016-02-23] MEDS: PANTOPRAZOLE SODIUM 100 ML IVPB SCH (12:11)
[2016-02-23] MEDS: HALOPERIDOL 0.5 MG TABLET PO SCH (12:13)
[2016-02-23] MEDS: D5-NS + 40 MEQ KCL - 1,000 ML IV SCH ×2 (12:39→15:30)
[2016-02-23] MEDS: AZITHROMYCIN IVPB 250 ML IVPB SCH (13:30)
[2016-02-23] MEDS: NAPH,MB-DB/K PH,MBDB POWDER PACKET GT SCH ×2 (14:54→22:52)
--- NOTE | 2016-02-23 15:42 | PN ---
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 (short form) - Note 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: G tube replaced yesterday at the bedside without difficulty. May use tube for feeding and meds.
[2016-02-23] MEDS ORDERED: INSULIN (NOVOLOG) ASPART 100 UNITS/ML 10ML VIAL ONE ×2 (18:16→20:45)
--- NOTE | 2016-02-23 22:02 | CONSULT ---
Consult Consult Specialty:: otolaryngology - History of Present Illness History of Present Illness: 70F admitted with tracheostomy from outside facility. I was asked to change to Portex as IVY does not have inner canulas for the Alka tube she has. No ventilatory issues. - History Source History Provided By: Medical Record Limitations to Obtaining History: Other (nonverbal on vent) - Past Medical History [employer]: Yes: CVA, Other (Patient quadruplegic. Vent dependent. ) Cardio/Vascular: Yes: AFIB (paroxsymal) Pulmonary: Yes: COPD Gastrointestinal: Yes: GERD Renal/: Yes: Renal Inusuff, Hematuria, Neurogenic Bladder Infectious Disease: Yes: Other (High fever) Musculoskeletal: Yes: Other (Quadruplegia) Endocrine: Yes: Diabetes Mellitus - Alcohol/Substance Use Hx Alcohol Use: No History of Substance Use: reports: None - Smoking History Smoking history: Unknown if ever smoked Home Medications - Allergies Allergies/Adverse Reactions: Allergies Allergy/AdvReac Type Severity Reaction Status Date / Time No Known Allergies Allergy Verified 02/19/16 23:18 - Home Medications Home Medications: Ambulatory Orders Acetaminophen [Tylenol .Regular Strength -] 650 tablet GT Q4H PRN 02/21/16 Aspirin 325 mg GT DAILY 02/21/16 Bisacodyl Suppository [Dulcolax Suppository -] 10 mg RC DAILY PRN 02/21/16 Diphenhydramine 25 mg GT HS PRN 02/21/16 Docusate Liquid 100 mg GT Q8H 02/21/16 Escitalopram Oxalate [Lexapro 5mg/5mL Oral Solution -] 2.5 mg GT DAILY 02/21/16 Gabapentin Liquid [Neurontin Oral Liquid -] 100 mg GT Q8H 02/21/16 Haloperidol 0.5 mg GT DAILY 02/21/16 Heparin - 5,000 unit SQ Q8H 02/21/16 Insulin Sliding Scale ACHS PRN 02/21/16 Midodrine HCl 2.5 mg GT TID 02/21/16 Oxycodone HCl 5 mg GT Q4H PRN 02/21/16 Pantoprazole Sodium [Protonix] 40 mg PEG Q12H 02/21/16 Polyethylene Glycol 17 grams GT DAILY 02/21/16 Senna Concentrate 17.2 mg GT Q12H 02/21/16 Silvadene 1 applic TP BID 02/21/16 Sodium Chloride 1 gm GT 02/21/16 Sodium Chloride 1 gm GT Q4H 02/21/16 Valacyclovir HCl [Valtrex] 1 gm GT Q8H 02/21/16 Physical Exam Vital Signs: Vital Signs Temperature 102.1 F H 02/23/16 14:42 Pulse Rate 80 02/23/16 17:45 Respiratory Rate 20 02/23/16 18:03 Blood Pressure 148/78 02/23/16 17:45 O2 Sat by Pulse Oximetry (%) 99 02/23/16 09:00 Constitutional: Yes: Well Nourished Eyes: Yes: WNL HENT: Yes: Other (grossly nml pinna, eac's.clear to ant rhinoscopy. MMM, lmited view of post oropharynx with secretions.) Neck: Yes: Other (Alka trach tube 8 in position, with velcro ties. Stoma healthy. replaced to 8 Portex Cuffed, fenestrated with RT at bedside, confirmed placement and good ventilation, along with cough reflex with suction.) Labs: CBC, BMP 02/23/16 06:45 02/23/16 06:45 Problem List - Problems (1) Ventilator dependent Assessment/Plan: Changed to Portex 8 cuffed fenestrated, secured with velcro tie - Obturator at bedside, along with extra 8 and 7 Portex cuffed tubes in case of emergency. - Suctioning and trach care per primary team, RT. Code(s): Z99.11 - DEPENDENCE ON RESPIRATOR [VENTILATOR] STATUS
[2016-02-24] MEDS: ALBUTEROL SO4 2.5/IPRATROPIUM 0.5 INH SOL 3 ML VIAL.NEB. NEB SCH ×5 (00:12→23:30)
[2016-02-24] MEDS: ACETAMINOPHEN 1000 MG/100 ML VIAL (NON FORMULARY) IVPB PRN ×3 (00:20→23:34)
[2016-02-24] MEDS: VANCOMYCIN 1,250 MG in DEXTROSE 5%-WATER - 250 ML IVPB SCH (01:02)
[2016-02-24] MEDS: PIPERACILLIN/TAZOB 4.5 GM/100 ML PRE-DOCKED IVPB SCH ×2 (03:13→11:08)
[2016-02-24] MEDS: INSULIN SLIDING SCALE (NOVOLOG) 1 VIAL SQ SCH ×4 (06:33→23:53)
[2016-02-24] MEDS: NAPH,MB-DB/K PH,MBDB POWDER PACKET GT SCH ×3 (06:33→23:33)
[2016-02-24] MEDS: ACETAMINOPHEN 325 MG TABLET (FP) PO PRN (07:33)
--- NOTE | 2016-02-24 10:12 | PN ---
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, Physician Chief Complaint: PATIENT ALERT ABLE TO HAVE DISCUSSION WITH HER EVENTS AND CHART REVIEWED TOLERATING TF - Current Medication List Current Medications: Active Medications Acetaminophen (Tylenol -) 650 mg PO Q6H PRN PRN Reason: FEVER OR PAIN Last Admin: 02/24/16 07:33 Dose: 650 mg Acetaminophen (Ofirmev Injection -) 1,000 mg IVPB Q6H PRN PRN Reason: FEVER Last Admin: 02/24/16 00:20 Dose: 1,000 mg Albuterol/Ipratropium (Duoneb -) 1 amp NEB Q4H PRN PRN Reason: SHORTNESS OF BREATH Albuterol/Ipratropium (Duoneb -) 1 amp NEB QIDR [facility] Last Admin: 02/24/16 06:34 Dose: 1 amp Bisacodyl (Dulcolax Suppository -) 10 mg RC DAILY PRN PRN Reason: CONSTIPATION Diphenhydramine HCl (Benadryl Injection -) 25 mg IVPUSH HS PRN PRN Reason: INSOMNIA Haloperidol (Haldol -) 0.5 mg PO DAILY [facility] Last Admin: 02/23/16 12:13 Dose: Not Given Heparin Sodium (Porcine) (Heparin -) 5,000 unit SQ BID [facility] Last Admin: 02/23/16 22:50 Dose: 5,000 unit Pantoprazole Sodium (Protonix 40mg Ivpb (Pre-Docked)) 100 mls @ 200 mls/hr IVPB DAILY [facility] Last Admin: 02/23/16 12:11 Dose: 200 mls/hr Dextrose/Sodium Chloride (Dextrose 5%-Normal Saline+40 Meq Kcl -) 1,000 mls @ 83 mls/hr IV ASDIR [facility] Last Admin: 02/23/16 15:30 Dose: Not Given Vancomycin HCl 1,250 mg/ (Dextrose) 250 mls @ 150 mls/hr IVPB DAILY@0100 [facility] Last Admin: 02/24/16 01:02 Dose: 150 mls/hr Insulin Aspart (Novolog Vial Sliding Scale -) 1 vial SQ ACHS [facility] PRN Reason: Protocol Last Admin: 02/24/16 06:33 Dose: 2 units Methylprednisolone Sodium Succinate (Solu-Medrol -) 30 mg IVPB BID [facility] Last Admin: 02/23/16 22:52 Dose: 30 mg Piperacillin Sod/Tazobactam Sod (Zosyn 4.5gm Ivpb (Pre-Docked)) 4.5 gm IVPB Q8H -IV [facility] Last Admin: 02/24/16 03:13 Dose: 4.5 gm Potassium Phos/Sodium Phos (Phos-Nak Packet -) 1 packet GT TID [facility] Last Admin: 02/24/16 06:33 Dose: 1 packet Silver Sulfadiazine (Silvadene -) 1 applic TP BID [facility] Stop: 02/27/16 21:59 Last Admin: 02/23/16 23:00 Dose: 1 applic - Objective Vital Signs: Vital Signs Temperature 102.1 F H 02/24/16 06:00 Pulse Rate 67 02/24/16 06:00 Respiratory Rate 15 02/24/16 07:32 Blood Pressure 142/74 02/24/16 06:00 O2 Sat by Pulse Oximetry (%) 99 02/23/16 21:00 Constitutional: Yes: Mild Distress Eyes: Yes: WNL HENT: Yes: WNL Neck: Yes: WNL Cardiovascular: Yes: Pulse Irregular Respiratory: Yes: Mechanically Ventilated (TRACH COLLAR) Gastrointestinal: Yes: Other (TF+) Genitourinary: Yes: Incontinence Musculoskeletal: Yes: Muscle Weakness Extremities: Yes: Other Edema: No Peripheral Pulses WNL: Yes Integumentary: Yes: Rash, Skin Tear, Venous Stasis Changes Wound/Incision: Yes: Dressing Dry and Intact Neurological: Yes: Pre-Existing Deficit, Unsteady Gait, Weakness ...Motor Strength: LUE, LLE, RUE, RLE Psychiatric: Yes: Other Labs: CBC, BMP 02/23/16 06:45 02/23/16 06:45 INR, PTT INR 1.31 (0.82-1.09) H 02/20/16 00:10 Problem List - Problems (1) Afib Code(s): I48.91 - UNSPECIFIED ATRIAL FIBRILLATION (2) COPD (chronic obstructive pulmonary disease) Code(s): J44.9 - CHRONIC OBSTRUCTIVE PULMONARY DISEASE, UNSPECIFIED Qualifiers : COPD type: unspecified COPD Qualified Code(s): J44.9 - Chronic obstructive pulmonary disease, unspecified (3) Chronic respiratory disease Code(s): J98.9 - RESPIRATORY DISORDER, UNSPECIFIED (4) Closed cervical spine fracture Code(s): S12.9XXA - FRACTURE OF NECK, UNSPECIFIED, INITIAL ENCOUNTER (5) Diabetes Code(s): E11.9 - TYPE 2 DIABETES MELLITUS WITHOUT COMPLICATIONS (6) Fever Code(s): R50.9 - FEVER, UNSPECIFIED Qualifiers: Fever type: unspecified Qualified Code(s): R50.9 - Fever, unspecified (7) GERD (gastroesophageal reflux disease) Code(s): K21.9 - GASTRO-ESOPHAGEAL REFLUX DISEASE WITHOUT ESOPHAGITIS (8) PEG tube malfunction Code(s): K94.23 - GASTROSTOMY MALFUNCTION (9) Paralysis Code(s): G83.9 - PARALYTIC SYNDROME, UNSPECIFIED (10) Ventilator dependent Code(s): Z99.11 - DEPENDENCE ON RESPIRATOR [VENTILATOR] STATUS Assessment/Plan FEVERS DOCUMENTED ID F/U , MULTIPLE SOURCES OF INFECTION WITH VENT, UTI, WOUNDS, PNA IV ABX VENT SUPPORT WOUND CARE TF CONTINUED, GTUBE FUNCTIONING
[2016-02-24 10:28] LABS: BASO % 0.3 % (0-2.0); HEMATOCRIT 28.7 % (32.4-45.2); HEMOGLOBIN 9.6 GM/dL (10.7-15.3); MCH 30.7 pg (25.7-33.7); MCHC 33.5 g/dl (32.0-36.0); MEAN CELL VOLUME 91.8 fl (80-96); MEAN PLT VOLUME 8.2 fl (7.5-11.1); MONO % 8.6 % (3.8-10.2); NEUT % 75.1 % (42.8-82.8); PLATELET COUNT 161 K/MM3 (134-434); RBC 3.13 M/mm3 (3.60-5.2); WHITE BLOOD COUNT 5.1 K/mm3 (4.0-10.0)
[2016-02-24] MEDS: methylPREDNISolone NA SUCC 40 MG/1 ML VIAL IVPB SCH ×2 (10:35→23:33)
[2016-02-24 10:57] LABS: CALCIUM 8.1 mg/dL (8.5-10.1); MAGNESIUM 1.7 mg/dL (1.8-2.4); POTASSIUM 3.4 mmol/L (3.5-5.1)
[2016-02-24 10:58] LABS: CREATININE 0.5 mg/dL (0.55-1.02); PHOSPHOROUS 2.2 mg/dL (2.5-4.9)
[2016-02-24] MEDS: SILVER SULFADIAZINE 1% TOP CREAM 50 GM JAR TP SCH ×2 (11:00→23:33)
[2016-02-24] MEDS: HEPARIN NA (PORCINE) 5,000 UNITS/ML 1ML VIAL SQ SCH ×2 (11:04→23:33)
[2016-02-24] MEDS: HALOPERIDOL 0.5 MG TABLET PO SCH (11:20)
[2016-02-24] MEDS ORDERED: INSULIN (NOVOLOG) ASPART 100 UNITS/ML 10ML VIAL ONE (11:55)
[2016-02-24] MEDS: PANTOPRAZOLE SODIUM 100 ML IVPB SCH (12:17)
[2016-02-24] MEDS ORDERED: MAGNESIUM SULF 50% (8.12 MEQ/2 ML-1 GM VIAL) IVPB ONE (13:00)
--- NOTE | 2016-02-24 13:06 | PN ---
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 (short form) - Note 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: PULMONARY Awake, vented on volume assist control. Persistent fevers. Last Vital Signs Temp Pulse Resp BP Pulse Ox 101.1 F H 98 H 22 100/50 94 L 02/24/16 11:09 02/24/16 11:09 02/24/16 11:09 02/24/16 11:09 02/24/16 10:32 Gen: vented, awake Heart: RRR Lung: decreased breath sounds at the bases Abd: soft, nontender Ext: + edema CBC, BMP 02/24/16 10:03 02/24/16 10:03 Active Medications Acetaminophen (Tylenol -) 650 mg PO Q6H PRN PRN Reason: FEVER OR PAIN Last Admin: 02/24/16 07:33 Dose: 650 mg Acetaminophen (Ofirmev Injection -) 1,000 mg IVPB Q6H PRN PRN Reason: FEVER Last Admin: 02/24/16 00:20 Dose: 1,000 mg Albuterol/Ipratropium (Duoneb -) 1 amp NEB Q4H PRN PRN Reason: SHORTNESS OF BREATH Albuterol/Ipratropium (Duoneb -) 1 amp NEB QIDR [facility] Last Admin: 02/24/16 11:00 Dose: 1 amp Bisacodyl (Dulcolax Suppository -) 10 mg RC DAILY PRN PRN Reason: CONSTIPATION Diphenhydramine HCl (Benadryl Injection -) 25 mg IVPUSH HS PRN PRN Reason: INSOMNIA Haloperidol (Haldol -) 0.5 mg PO DAILY [facility] Last Admin: 02/24/16 11:20 Dose: Not Given Heparin Sodium (Porcine) (Heparin -) 5,000 unit SQ BID [facility] Last Admin: 02/24/16 11:04 Dose: 5,000 unit Pantoprazole Sodium (Protonix 40mg Ivpb (Pre-Docked)) 100 mls @ 200 mls/hr IVPB DAILY [facility] Last Admin: 02/24/16 12:17 Dose: 200 mls/hr Dextrose/Sodium Chloride (Dextrose 5%-Normal Saline+40 Meq Kcl -) 1,000 mls @ 83 mls/hr IV ASDIR [facility] Last Admin: 02/23/16 15:30 Dose: Not Given Vancomycin HCl 1,250 mg/ (Dextrose) 250 mls @ 150 mls/hr IVPB DAILY@0100 [facility] Last Admin: 02/24/16 01:02 Dose: 150 mls/hr Insulin Aspart (Novolog Vial Sliding Scale -) 1 vial SQ ACHS [facility] PRN Reason: Protocol Last Admin: 02/24/16 11:56 Dose: 2 units Methylprednisolone Sodium Succinate (Solu-Medrol -) 30 mg IVPB BID [facility] Last Admin: 02/24/16 10:35 Dose: 30 mg Piperacillin Sod/Tazobactam Sod (Zosyn 4.5gm Ivpb (Pre-Docked)) 4.5 gm IVPB Q8H -IV [facility] Last Admin: 02/24/16 11:08 Dose: 4.5 gm Potassium Phos/Sodium Phos (Phos-Nak Packet -) 1 packet GT TID [facility] Last Admin: 02/24/16 06:33 Dose: 1 packet Silver Sulfadiazine (Silvadene -) 1 applic TP BID [facility] Stop: 02/27/16 21:59 Last Admin: 02/23/16 23:00 Dose: 1 applic A/P Chronic Respiratory Failure Pneumonia COPD Atrial Fibrillation GERD - continue antibiotics per ID - f/u cultures - will change steroids to PO - inhaled bronchodilators - enteral feeds - continue volume assist control for now, can attempt spontaneous breathing trials when infection under control - DVT/GI prophylaxis
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
--- NOTE | 2016-02-24 14:08 | PN ---
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 (short form) - Note 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: ID Vancomycin Zosyn Febrile 101.1 Selected Entries 02/24/16 11:09 Temperature 101.1 F H Pulse Rate 98 H Respiratory 22 Rate Blood Pressure 100/50 Trach Lung diminished Cor S2 S2 RR Ext edema Microbiology 02/22/16 03:00 Stool Clostridium difficile Antigen (FATMATA) - Final 02/22/16 03:00 Stool Clostridium difficile Toxin Assay - Final 02/22/16 12:45 Blood - Peripheral Venous Blood Culture - Preliminary NO GROWTH OBTAINED AFTER 48 HOURS, INCUBATION TO CONTINUE FOR 3 DAYS. 02/22/16 12:45 Blood - Peripheral Venous Blood Culture - Preliminary NO GROWTH OBTAINED AFTER 48 HOURS, INCUBATION TO CONTINUE FOR 3 DAYS. Laboratory Tests 02/23/16 02/24/16 06:45 10:03 WBC 5.1 Hgb 9.6 L Hct 28.7 L Plt Count 161 D Total Bilirubin 0.5 AST 9 L D ALT 18 Alkaline Phosphatase 36 L Assessment Fever PNA respiratory failure Cultures noted MSSA and NLF Plan Add gent to Zosyn and stop vancomycin [facility]
[2016-02-24] MEDS ORDERED: GENTAMICIN SO4 *PEDIATRIC* 20 MG/2 ML VIAL IVPB SCH (14:15)
[2016-02-24] MEDS: GENTAMICIN INJECTION 60 MG in SODIUM CHLORIDE 100 ML IVPB SCH ×2 (17:23→23:39)
[2016-02-24] MEDS: D5-NS + 40 MEQ KCL - 1,000 ML IV SCH (23:32)
[2016-02-24] MEDS ORDERED: PT OWN MED DRAWER 7, Y5N ONE (23:36)
[2016-02-25] MEDS: PIPERACILLIN/TAZOB 4.5 GM/100 ML PRE-DOCKED IVPB SCH ×2 (02:38→11:24)
[2016-02-25] MEDS: ALBUTEROL SO4 2.5/IPRATROPIUM 0.5 INH SOL 3 ML VIAL.NEB. NEB SCH ×4 (06:48→23:30)
[2016-02-25] MEDS: INSULIN SLIDING SCALE (NOVOLOG) 1 VIAL SQ SCH ×4 (07:54→23:00)
[2016-02-25] MEDS: NAPH,MB-DB/K PH,MBDB POWDER PACKET GT SCH ×3 (07:55→22:45)
[2016-02-25] MEDS: ACETAMINOPHEN 325 MG TABLET (FP) PO PRN (07:55)
[2016-02-25 07:57] LABS: CALCIUM 8.2 mg/dL (8.5-10.1); CREATININE 0.4 mg/dL (0.55-1.02); PHOSPHOROUS 2.9 mg/dL (2.5-4.9)
[2016-02-25 08:03] LABS: POTASSIUM 4.4 mmol/L (3.5-5.1)
[2016-02-25] MEDS: HALOPERIDOL 0.5 MG TABLET PO SCH (10:00)
[2016-02-25] MEDS ORDERED: PT OWN MED DRAWER 7, Y5N ONE (10:20)
[2016-02-25] MEDS: methylPREDNISolone NA SUCC 40 MG/1 ML VIAL IVPB SCH ×2 (10:44→21:54)
[2016-02-25] MEDS: HEPARIN NA (PORCINE) 5,000 UNITS/ML 1ML VIAL SQ SCH ×2 (11:07→22:45)
--- NOTE | 2016-02-25 11:26 | PN ---
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, Physician Chief Complaint: PATIENT ALERT ABLE TO HAVE DISCUSSION WITH HER EVENTS AND CHART REVIEWED TOLERATING TF - Current Medication List Current Medications: Active Medications Acetaminophen (Tylenol -) 650 mg PO Q6H PRN PRN Reason: FEVER OR PAIN Last Admin: 02/25/16 07:55 Dose: 650 mg Acetaminophen (Ofirmev Injection -) 1,000 mg IVPB Q6H PRN PRN Reason: FEVER Last Admin: 02/24/16 23:34 Dose: 1,000 mg Albuterol/Ipratropium (Duoneb -) 1 amp NEB Q4H PRN PRN Reason: SHORTNESS OF BREATH Albuterol/Ipratropium (Duoneb -) 1 amp NEB QIDR [facility] Last Admin: 02/25/16 06:48 Dose: 1 amp Bisacodyl (Dulcolax Suppository -) 10 mg RC DAILY PRN PRN Reason: CONSTIPATION Diphenhydramine HCl (Benadryl Injection -) 25 mg IVPUSH HS PRN PRN Reason: INSOMNIA Haloperidol (Haldol -) 0.5 mg PO DAILY [facility] Last Admin: 02/24/16 11:20 Dose: Not Given Heparin Sodium (Porcine) (Heparin -) 5,000 unit SQ BID [facility] Last Admin: 02/25/16 11:07 Dose: 5,000 unit Pantoprazole Sodium (Protonix 40mg Ivpb (Pre-Docked)) 100 mls @ 200 mls/hr IVPB DAILY [facility] Last Admin: 02/24/16 12:17 Dose: 200 mls/hr Dextrose/Sodium Chloride (Dextrose 5%-Normal Saline+40 Meq Kcl -) 1,000 mls @ 83 mls/hr IV ASDIR [facility] Last Admin: 02/24/16 23:32 Dose: 83 mls/hr Gentamicin Sulfate 60 mg/ (Sodium Chloride) 101.5 mls @ 101.5 mls/hr IVPB BID [facility] Last Admin: 02/24/16 23:39 Dose: 101.5 mls/hr Insulin Aspart (Novolog Vial Sliding Scale -) 1 vial SQ ACHS [facility] PRN Reason: Protocol Last Admin: 02/25/16 07:54 Dose: 2 units Methylprednisolone Sodium Succinate (Solu-Medrol -) 30 mg IVPB BID [facility] Last Admin: 02/25/16 10:44 Dose: 30 mg Piperacillin Sod/Tazobactam Sod (Zosyn 4.5gm Ivpb (Pre-Docked)) 4.5 gm IVPB Q8H -IV [facility] Last Admin: 02/25/16 11:24 Dose: 4.5 gm Potassium Phos/Sodium Phos (Phos-Nak Packet -) 1 packet GT TID [facility] Last Admin: 02/25/16 07:55 Dose: 1 packet Silver Sulfadiazine (Silvadene -) 1 applic TP BID [facility] Stop: 02/27/16 21:59 Last Admin: 02/24/16 23:33 Dose: 1 applic - Objective Vital Signs: Vital Signs Temperature 101.3 F H 02/25/16 06:00 Pulse Rate 82 02/25/16 06:00 Respiratory Rate 20 02/25/16 06:54 Blood Pressure 148/73 02/25/16 06:00 O2 Sat by Pulse Oximetry (%) 99 02/24/16 22:00 Constitutional: Yes: Mild Distress Eyes: Yes: WNL HENT: Yes: Other Neck: Yes: Other Cardiovascular: Yes: Pulse Irregular Respiratory: Yes: Mechanically Ventilated, Other Gastrointestinal: Yes: Other (TF+) Genitourinary: Yes: Lee Present, Incontinence Musculoskeletal: Yes: Muscle Weakness Extremities: Yes: Other Edema: Yes Peripheral Pulses WNL: Yes Integumentary: Yes: Rash, Venous Stasis Changes, Other Wound/Incision: Yes: Dressing Dry and Intact Neurological: Yes: Pre-Existing Deficit, Unsteady Gait, Weakness ...Motor Strength: LLE, RLE Psychiatric: Yes: Other Labs: CBC, BMP 02/24/16 10:03 02/25/16 05:35 INR, PTT INR 1.31 (0.82-1.09) H 02/20/16 00:10 Problem List - Problems (1) Afib Code(s): I48.91 - UNSPECIFIED ATRIAL FIBRILLATION (2) COPD (chronic obstructive pulmonary disease) Code(s): J44.9 - CHRONIC OBSTRUCTIVE PULMONARY DISEASE, UNSPECIFIED Qualifiers : COPD type: unspecified COPD Qualified Code(s): J44.9 - Chronic obstructive pulmonary disease, unspecified (3) Chronic respiratory disease Code(s): J98.9 - RESPIRATORY DISORDER, UNSPECIFIED (4) Closed cervical spine fracture Code(s): S12.9XXA - FRACTURE OF NECK, UNSPECIFIED, INITIAL ENCOUNTER (5) Diabetes Code(s): E11.9 - TYPE 2 DIABETES MELLITUS WITHOUT COMPLICATIONS (6) Fever Code(s): R50.9 - FEVER, UNSPECIFIED Qualifiers: Fever type: unspecified Qualified Code(s): R50.9 - Fever, unspecified (7) GERD (gastroesophageal reflux disease) Code(s): K21.9 - GASTRO-ESOPHAGEAL REFLUX DISEASE WITHOUT ESOPHAGITIS (8) PEG tube malfunction Code(s): K94.23 - GASTROSTOMY MALFUNCTION (9) Paralysis Code(s): G83.9 - PARALYTIC SYNDROME, UNSPECIFIED (10) Ventilator dependent Code(s): Z99.11 - DEPENDENCE ON RESPIRATOR [VENTILATOR] STATUS Assessment/Plan FEVERS DOCUMENTED ID F/U , MULTIPLE SOURCES OF INFECTION WITH VENT, UTI, WOUNDS, PNA IV ABX VENT SUPPORT WOUND CARE TF CONTINUED, GTUBE FUNCTIONING CT SCAN RESULTS REVIEWED LABS AM TOMORROW
[2016-02-25] MEDS: SILVER SULFADIAZINE 1% TOP CREAM 50 GM JAR TP SCH ×2 (11:30→22:45)
[2016-02-25] MEDS: GENTAMICIN INJECTION 60 MG in SODIUM CHLORIDE 100 ML IVPB SCH (12:31)
[2016-02-25] MEDS: PANTOPRAZOLE SODIUM 100 ML IVPB SCH (13:53)
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
[2016-02-25] MEDS: D5-NS + 40 MEQ KCL - 1,000 ML IV SCH ×2 (15:30→20:46)
--- NOTE | 2016-02-25 15:37 | PN ---
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 (short form) - Note 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: awake and alert, remains comfortable but febrile ct scan with atelectasis of the left lung abd/pelvis ct no abscess Vital Signs Period Temp Pulse Resp BP Sys/Castanon Pulse Ox Last 24 Hr 100.6 F-104 F 75-96 12-23 129-158/70-79 99-100 cor-rrr lungs decresased bs on the left abd soft, +gt ext no edema CBC, BMP 02/24/16 10:03 02/25/16 05:35 Microbiology 02/21/16 04:23 Sputum - Endotrachea Suction/Ventilator Gram Stain - Final 02/21/16 04:23 Sputum - Endotrachea Suction/Ventilator Sputum Culture - Final Staphylococcus Aureus Stenotrophomon.(X.)Maltophilia 02/22/16 12:45 Blood - Peripheral Venous Blood Culture - Preliminary NO GROWTH OBTAINED AFTER 72 HOURS, INCUBATION TO CONTINUE FOR 2 DAYS. 02/22/16 12:45 Blood - Peripheral Venous Blood Culture - Preliminary NO GROWTH OBTAINED AFTER 72 HOURS, INCUBATION TO CONTINUE FOR 2 DAYS. 02/20/16 09:10 Blood - Peripheral Venous Blood Culture - Final NO GROWTH AFTER 5 DAYS INCUBATION 02/20/16 09:10 Blood - Peripheral Venous Blood Culture - Final NO GROWTH AFTER 5 DAYS INCUBATION 02/20/16 00:10 Blood - Peripheral Venous Blood Culture - Final NO GROWTH AFTER 5 DAYS INCUBATION 02/20/16 00:10 Blood - Peripheral Venous Blood Culture - Final NO GROWTH AFTER 5 DAYS INCUBATION 02/22/16 03:00 Stool Clostridium difficile Antigen (FATMATA) - Final 02/22/16 03:00 Stool Clostridium difficile Toxin Assay - Final 02/21/16 04:23 Nasopharyngeal Swab Respiratory Virus Panel - Preliminary 02/20/16 07:55 Urine - Urine - Catheterized Urine Culture - Preliminary Proteus Mirabilis Group D Strep Or Entero Coccus 02/21/16 04:23 Urine For Antigen Detection Legionella Antigen - Final 02/21/16 04:23 Urine For Antigen Detection Streptococcus pneumoniae Antigen (M - Final 02/21/16 04:23 Nasopharyngeal Swab Influenza Types A,B Antigen (FATMATA) - Final 02/21/16 04:23 Nasopharyngeal Swab - Final 02/20/16 09:00 Urine For Antigen Detection Legionella Antigen - Final 02/20/16 09:00 Urine For Antigen Detection Streptococcus pneumoniae Antigen (M - Final Current Medications Acetaminophen (Tylenol -) 650 mg PO Q6H PRN PRN Reason: FEVER OR PAIN Last Admin: 02/25/16 07:55 Dose: 650 mg Acetaminophen (Ofirmev Injection -) 1,000 mg IVPB Q6H PRN PRN Reason: FEVER Last Admin: 02/24/16 23:34 Dose: 1,000 mg Albuterol/Ipratropium (Duoneb -) 1 amp NEB Q4H PRN PRN Reason: SHORTNESS OF BREATH Albuterol/Ipratropium (Duoneb -) 1 amp NEB QIDR [facility] Last Admin: 02/25/16 11:30 Dose: 1 amp Bisacodyl (Dulcolax Suppository -) 10 mg RC DAILY PRN PRN Reason: CONSTIPATION Diphenhydramine HCl (Benadryl Injection -) 25 mg IVPUSH HS PRN PRN Reason: INSOMNIA Haloperidol (Haldol -) 0.5 mg PO DAILY [facility] Last Admin: 02/25/16 10:00 Dose: Not Given Heparin Sodium (Porcine) (Heparin -) 5,000 unit SQ BID [facility] Last Admin: 02/25/16 11:07 Dose: 5,000 unit Pantoprazole Sodium (Protonix 40mg Ivpb (Pre-Docked)) 100 mls @ 200 mls/hr IVPB DAILY [facility] Last Admin: 02/25/16 13:53 Dose: 200 mls/hr Dextrose/Sodium Chloride (Dextrose 5%-Normal Saline+40 Meq Kcl -) 1,000 mls @ 83 mls/hr IV ASDIR [facility] Last Admin: 02/24/16 23:32 Dose: 83 mls/hr Gentamicin Sulfate 60 mg/ (Sodium Chloride) 101.5 mls @ 101.5 mls/hr IVPB BID [facility] Last Admin: 02/25/16 12:31 Dose: 101.5 mls/hr Insulin Aspart (Novolog Vial Sliding Scale -) 1 vial SQ ACHS [facility] PRN Reason: Protocol Last Admin: 02/25/16 12:35 Dose: Not Given Methylprednisolone Sodium Succinate (Solu-Medrol -) 30 mg IVPB BID [facility] Last Admin: 02/25/16 10:44 Dose: 30 mg Piperacillin Sod/Tazobactam Sod (Zosyn 4.5gm Ivpb (Pre-Docked)) 4.5 gm IVPB Q8H -IV [facility] Last Admin: 02/25/16 11:24 Dose: 4.5 gm Potassium Phos/Sodium Phos (Phos-Nak Packet -) 1 packet GT TID [facility] Last Admin: 02/25/16 14:45 Dose: 1 packet Silver Sulfadiazine (Silvadene -) 1 applic TP BID [facility] Stop: 02/27/16 21:59 Last Admin: 02/25/16 11:30 Dose: [address] a/p FUO- suspect secondary to lung atelectasis- d/w pulmonary dr ball UTI will switch to levaquin/rocephin aggressive chest pt, may need bronchoscopy nurse reports diarrhea repeat cdiff
[2016-02-25] MEDS: ACETAMINOPHEN 1000 MG/100 ML VIAL (NON FORMULARY) IVPB PRN (16:53)
[2016-02-25] MEDS: cefTRIAXone 2 GM/100 ML BAG (PRE-DOCKED) IVPB SCH (19:08)
[2016-02-25] MEDS: metroNIDAZOLE 250 MG TABLET GT SCH (23:45)
[2016-02-26] MEDS: ACETAMINOPHEN 1000 MG/100 ML VIAL (NON FORMULARY) IVPB PRN ×2 (02:31→21:54)
[2016-02-26] MEDS: ALBUTEROL SO4 2.5/IPRATROPIUM 0.5 INH SOL 3 ML VIAL.NEB. NEB SCH ×4 (06:45→23:25)
[2016-02-26] MEDS: metroNIDAZOLE 250 MG TABLET GT SCH ×3 (07:41→21:55)
[2016-02-26] MEDS: INSULIN SLIDING SCALE (NOVOLOG) 1 VIAL SQ SCH ×4 (07:42→21:57)
[2016-02-26] MEDS: NAPH,MB-DB/K PH,MBDB POWDER PACKET GT SCH ×3 (07:42→21:59)
[2016-02-26 08:34] LABS: HEMOGLOBIN 10.1 GM/dL (10.7-15.3); MCHC 33.8 g/dl (32.0-36.0); MEAN CELL VOLUME 91.8 fl (80-96); MEAN PLT VOLUME 8.1 fl (7.5-11.1); PLATELET COUNT 218 K/MM3 (134-434); RBC 3.27 M/mm3 (3.60-5.2); RDW 16.8 % (11.6-15.6); WHITE BLOOD COUNT 4.4 K/mm3 (4.0-10.0)
[2016-02-26 09:07] LABS: ALBUMIN 2.4 g/dl (3.4-5.0); BILIRUBIN,TOTAL 0.4 mg/dL (0.2-1.0); BLOOD UREA NITROGEN 13 mg/dL (7-18); CO2 24 mmol/L (21-32); CREATININE 0.4 mg/dL (0.55-1.02); GLUCOSE,RANDOM 174 mg/dL (74-106); MAGNESIUM 1.8 mg/dL (1.8-2.4); PHOSPHOROUS 2.6 mg/dL (2.5-4.9); SGPT/ALT 15 U/L (12-78)
[2016-02-26] MEDS: HEPARIN NA (PORCINE) 5,000 UNITS/ML 1ML VIAL SQ SCH ×2 (09:19→21:56)
[2016-02-26 09:30] LABS: ALK PHOS 29 U/L (45-117); ANION GAP 14 (8-16); CHLORIDE 92 mmol/L (98-107); SODIUM 130 mmol/L (136-145)
[2016-02-26 09:38] LABS: POTASSIUM 4.1 mmol/L (3.5-5.1); SGOT/AST 23 U/L (15-37)
[2016-02-26] MEDS: cefTRIAXone 2 GM/100 ML BAG (PRE-DOCKED) IVPB SCH (09:56)
[2016-02-26] MEDS: HALOPERIDOL 0.5 MG TABLET PO SCH (10:01)
[2016-02-26] MEDS: PANTOPRAZOLE SODIUM 100 ML IVPB SCH (10:38)
[2016-02-26] MEDS: SILVER SULFADIAZINE 1% TOP CREAM 50 GM JAR TP SCH ×2 (10:38→21:59)
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
[2016-02-26] MEDS: methylPREDNISolone NA SUCC 40 MG/1 ML VIAL IVPB SCH ×2 (11:19→21:59)
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
[2016-02-26] MEDS ORDERED: PT OWN MED DRAWER 7, Y5N ONE (12:11)
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
[2016-02-26] MEDS: D5-NS + 40 MEQ KCL - 1,000 ML IV SCH (15:46)
[2016-02-26] MEDS: ACETAMINOPHEN 325 MG TABLET (FP) PO PRN (16:52)
[2016-02-26] MEDS ORDERED: INSULIN (NOVOLOG) ASPART 100 UNITS/ML 10ML VIAL ONE (20:03)
[2016-02-27] MEDS: ALBUTEROL SO4 2.5/IPRATROPIUM 0.5 INH SOL 3 ML VIAL.NEB. NEB SCH ×5 (06:18→23:35)
[2016-02-27] MEDS: metroNIDAZOLE 250 MG TABLET GT SCH ×3 (06:51→21:38)
[2016-02-27] MEDS: NAPH,MB-DB/K PH,MBDB POWDER PACKET GT SCH ×3 (06:53→21:42)
[2016-02-27] MEDS: ACETAMINOPHEN 325 MG TABLET (FP) PO PRN ×2 (06:55→12:44)
[2016-02-27] MEDS: INSULIN SLIDING SCALE (NOVOLOG) 1 VIAL SQ SCH ×4 (06:55→21:42)
[2016-02-27 09:34] LABS: CALCIUM 7.9 mg/dL (8.5-10.1); CREATININE 0.4 mg/dL (0.55-1.02); POTASSIUM 4.6 mmol/L (3.5-5.1)
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
[2016-02-27] MEDS ORDERED: PT OWN MED DRAWER 7, Y5N ONE (11:04)
[2016-02-27] MEDS: cefTRIAXone 2 GM/100 ML BAG (PRE-DOCKED) IVPB SCH (11:07)
[2016-02-27] MEDS: PANTOPRAZOLE SODIUM 100 ML IVPB SCH (11:07)
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
[2016-02-27] MEDS: methylPREDNISolone NA SUCC 40 MG/1 ML VIAL IVPB SCH ×2 (11:08→21:43)
[2016-02-27] MEDS: SILVER SULFADIAZINE 1% TOP CREAM 50 GM JAR TP SCH (11:09)
[2016-02-27] MEDS: HALOPERIDOL 0.5 MG TABLET PO SCH (11:09)
[2016-02-27] MEDS: D5-NS + 40 MEQ KCL - 1,000 ML IV SCH ×2 (11:28→18:02)
[2016-02-27] MEDS: HEPARIN NA (PORCINE) 5,000 UNITS/ML 1ML VIAL SQ SCH ×3 (12:33→21:38)
[2016-02-27] MEDS: ACETAMINOPHEN 1000 MG/100 ML VIAL (NON FORMULARY) IVPB PRN (18:10)
[2016-02-28] MEDS: ACETAMINOPHEN 1000 MG/100 ML VIAL (NON FORMULARY) IVPB PRN (02:20)
[2016-02-28] MEDS: metroNIDAZOLE 250 MG TABLET GT SCH ×3 (06:33→22:07)
[2016-02-28] MEDS: INSULIN SLIDING SCALE (NOVOLOG) 1 VIAL SQ SCH ×3 (06:34→17:37)
[2016-02-28] MEDS: NAPH,MB-DB/K PH,MBDB POWDER PACKET GT SCH ×3 (06:34→22:07)
[2016-02-28] MEDS: ALBUTEROL SO4 2.5/IPRATROPIUM 0.5 INH SOL 3 ML VIAL.NEB. NEB SCH ×4 (06:42→23:27)
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
[2016-02-28] MEDS: PANTOPRAZOLE SODIUM 100 ML IVPB SCH (09:33)
[2016-02-28] MEDS: cefTRIAXone 2 GM/100 ML BAG (PRE-DOCKED) IVPB SCH (09:33)
[2016-02-28] MEDS ORDERED: PT OWN MED DRAWER 7, Y5N ONE ×2 (09:34→14:46)
[2016-02-28] MEDS: HEPARIN NA (PORCINE) 5,000 UNITS/ML 1ML VIAL SQ SCH ×2 (09:35→22:07)
[2016-02-28] MEDS: HALOPERIDOL 0.5 MG TABLET PO SCH (09:35)
[2016-02-28] MEDS: methylPREDNISolone NA SUCC 40 MG/1 ML VIAL IVPB SCH ×2 (09:35→22:08)
[2016-02-28] MEDS ORDERED: SODIUM CHLORIDE 1 GM TABLET GT SCH (10:45)
[2016-02-28 11:07] LABS: BASO % 0.7 % (0-2.0); EOS % 0.1 % (0-4.5); HEMATOCRIT 28.5 % (32.4-45.2); HEMOGLOBIN 9.7 GM/dL (10.7-15.3); LYMPH % 16.1 % (8-40); MCH 31.1 pg (25.7-33.7); MCHC 34.1 g/dl (32.0-36.0); MEAN CELL VOLUME 91.2 fl (80-96); MEAN PLT VOLUME 7.2 fl (7.5-11.1); MONO % 5.6 % (3.8-10.2); NEUT % 77.5 % (42.8-82.8); PLATELET COUNT 226 K/MM3 (134-434); RBC 3.12 M/mm3 (3.60-5.2); RDW 17.1 % (11.6-15.6); WHITE BLOOD COUNT 6.3 K/mm3 (4.0-10.0)
[2016-02-28 11:37] LABS: URINE APPEARANCE CLEAR; URINE BILIRUBIN NEGATIVE (NEGATIVE); URINE COLOR LTYELLOW; URINE GLUCOSE (UA) NEGATIVE (NEGATIVE); URINE KETONE NEGATIVE (NEGATIVE); URINE LEUK ESTERASE NEGATIVE (NEGATIVE); URINE NITRITE NEGATIVE (NEGATIVE); URINE PROTEIN NEGATIVE (NEGATIVE); URINE UROBILINOGEN NEGATIVE E.U./dl (0.2-1.0)
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
--- NOTE | 2016-02-28 13:19 | PN ---
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, Physician History of Present Illness: Awake on ventilator No acute distress Remains febrile WBC WNL BC no growth C difficile negative - Current Medication List Current Medications: Active Medications Acetaminophen (Tylenol -) 650 mg PO Q6H PRN PRN Reason: FEVER OR PAIN Last Admin: 02/27/16 12:44 Dose: 650 mg Acetaminophen (Ofirmev Injection -) 1,000 mg IVPB Q6H PRN PRN Reason: FEVER Last Admin: 02/28/16 02:20 Dose: 1,000 mg Albuterol/Ipratropium (Duoneb -) 1 amp NEB Q4H PRN PRN Reason: SHORTNESS OF BREATH Albuterol/Ipratropium (Duoneb -) 1 amp NEB QIDR [facility] Last Admin: 02/28/16 11:09 Dose: 1 amp Bisacodyl (Dulcolax Suppository -) 10 mg RC DAILY PRN PRN Reason: CONSTIPATION Ceftriaxone Sodium (Rocephin 2gm Ivpb (Pre-Docked)) 2 gm IVPB DAILY [facility] Last Admin: 02/28/16 09:33 Dose: 2 gm Diphenhydramine HCl (Benadryl Injection -) 25 mg IVPUSH HS PRN PRN Reason: INSOMNIA Haloperidol (Haldol -) 0.5 mg PO DAILY [facility] Last Admin: 02/28/16 09:35 Dose: 0.5 mg Heparin Sodium (Porcine) (Heparin -) 5,000 unit SQ BID [facility] Last Admin: 02/28/16 09:35 Dose: 5,000 unit Pantoprazole Sodium (Protonix 40mg Ivpb (Pre-Docked)) 100 mls @ 200 mls/hr IVPB DAILY [facility] Last Admin: 02/28/16 09:33 Dose: 200 mls/hr Levofloxacin (Levaquin 500 Mg Premixed Ivpb -) 100 mls @ 100 mls/hr IVPB DAILY [facility] Last Admin: 02/28/16 09:33 Dose: 100 mls/hr Insulin Aspart (Novolog Vial Sliding Scale -) 1 vial SQ ACHS [facility] PRN Reason: Protocol Last Admin: 02/28/16 12:36 Dose: 2 units Methylprednisolone Sodium Succinate (Solu-Medrol -) 30 mg IVPB BID [facility] Last Admin: 02/28/16 09:35 Dose: 30 mg Metronidazole (Flagyl -) 500 mg GT TID [facility] Last Admin: 02/28/16 06:33 Dose: 500 mg Potassium Phos/Sodium Phos (Phos-Nak Packet -) 1 packet GT TID [facility] Last Admin: 02/28/16 06:34 Dose: 1 packet - Objective Vital Signs: Vital Signs Temperature 98.9 F 02/28/16 09:00 Pulse Rate 70 02/28/16 09:25 Respiratory Rate 16 02/28/16 09:24 Blood Pressure 131/73 02/28/16 09:00 O2 Sat by Pulse Oximetry (%) 99 02/28/16 09:25 Constitutional: Yes: No Distress Eyes: Yes: Conjunctiva Clear Cardiovascular: Yes: Regular Rate and Rhythm, S1, S2 Respiratory: Yes: Diminished Gastrointestinal: Yes: Normal Bowel Sounds, Soft, Abdomen, Obese. No: Tenderness Edema: Yes Labs: CBC, BMP 02/28/16 10:35 02/27/16 08:50 INR, PTT INR 1.31 (0.82-1.09) H 02/20/16 00:10 Assessment/Plan FUO possibly secondary to atelectasis Complete opacification L lung field UTI Respiratory failure Continue ceftriaxone/ levaquin Mgt of atelectasis per pulmonary
[2016-02-29] MEDS: INSULIN SLIDING SCALE (NOVOLOG) 1 VIAL SQ SCH ×5 (01:07→22:46)
[2016-02-29] MEDS: ACETAMINOPHEN 1000 MG/100 ML VIAL (NON FORMULARY) IVPB PRN ×3 (03:12→22:39)
[2016-02-29] MEDS: ALBUTEROL SO4 2.5/IPRATROPIUM 0.5 INH SOL 3 ML VIAL.NEB. NEB SCH ×4 (06:15→23:22)
[2016-02-29 06:32] LABS: BASO % 0.2 % (0-2.0); EOS % 0.1 % (0-4.5); HEMATOCRIT 29.9 % (32.4-45.2); HEMOGLOBIN 9.8 GM/dL (10.7-15.3); LYMPH % 8.6 % (8-40); MCH 30.1 pg (25.7-33.7); MCHC 32.8 g/dl (32.0-36.0); MEAN CELL VOLUME 91.7 fl (80-96); MEAN PLT VOLUME 7.3 fl (7.5-11.1); MONO % 4.3 % (3.8-10.2); NEUT % 86.8 % (42.8-82.8); PLATELET COUNT 275 K/MM3 (134-434); RBC 3.26 M/mm3 (3.60-5.2); RDW 17.6 % (11.6-15.6)
[2016-02-29] MEDS: NAPH,MB-DB/K PH,MBDB POWDER PACKET GT SCH ×3 (07:03→22:13)
[2016-02-29] MEDS: metroNIDAZOLE 250 MG TABLET GT SCH ×2 (07:03→15:17)
[2016-02-29 07:07] LABS: ALBUMIN 2.4 g/dl (3.4-5.0); ANION GAP 9 (8-16); BILIRUBIN,TOTAL 0.2 mg/dL (0.2-1.0); BLOOD UREA NITROGEN 23 mg/dL (7-18); CALCIUM 8.1 mg/dL (8.5-10.1); CHLORIDE 98 mmol/L (98-107); CO2 26 mmol/L (21-32); CREATININE 0.4 mg/dL (0.55-1.02); GLUCOSE,RANDOM 128 mg/dL (74-106); MAGNESIUM 2.1 mg/dL (1.8-2.4); PHOSPHOROUS 3.5 mg/dL (2.5-4.9); POTASSIUM 4.4 mmol/L (3.5-5.1); SGOT/AST 15 U/L (15-37); SGPT/ALT 22 U/L (12-78); SODIUM 133 mmol/L (136-145)
[2016-02-29 07:08] LABS: ALK PHOS 31 U/L (45-117)
[2016-02-29] MEDS ORDERED: PT OWN MED DRAWER 7, Y5N ONE ×3 (08:22→11:03)
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
[2016-02-29] MEDS: HEPARIN NA (PORCINE) 5,000 UNITS/ML 1ML VIAL SQ SCH ×2 (10:06→22:13)
[2016-02-29] MEDS: PANTOPRAZOLE SODIUM 100 ML IVPB SCH (10:06)
[2016-02-29] MEDS: cefTRIAXone 2 GM/100 ML BAG (PRE-DOCKED) IVPB SCH (10:06)
[2016-02-29] MEDS: methylPREDNISolone NA SUCC 40 MG/1 ML VIAL IVPB SCH ×2 (10:07→22:14)
[2016-02-29] MEDS: HALOPERIDOL 0.5 MG TABLET PO SCH (11:04)
[2016-02-29] MEDS: ACETAMINOPHEN 325 MG TABLET (FP) PO PRN (11:04)
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
--- NOTE | 2016-02-29 13:13 | PN ---
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 (short form) - Note 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: Awake and alert on AC mode of vent. 40% FiO2. CXR: 02/28/2016. Left complete atelectasis. Intake & Output 02/26/16 02/27/16 02/28/16 02/29/16 23:59 23:59 23:59 23:59 Intake Total 3418 3332 3068 1140 Output Total 2600 2250 5100 Balance 818 1082 -2032 1140 Last Vital Signs Temp Pulse Resp BP Pulse Ox 102.2 F H 102 H 20 126/70 96 02/29/16 08:57 02/29/16 10:10 02/29/16 10:07 02/29/16 08:57 02/29/16 10:10 Active Medications Acetaminophen (Tylenol -) 650 mg PO Q6H PRN PRN Reason: FEVER OR PAIN Last Admin: 02/29/16 11:04 Dose: 650 mg Acetaminophen (Ofirmev Injection -) 1,000 mg IVPB Q6H PRN PRN Reason: FEVER Last Admin: 02/29/16 03:12 Dose: 1,000 mg Albuterol/Ipratropium (Duoneb -) 1 amp NEB QIDR [facility] Last Admin: 02/29/16 12:25 Dose: 1 amp Bisacodyl (Dulcolax Suppository -) 10 mg RC DAILY PRN PRN Reason: CONSTIPATION Ceftriaxone Sodium (Rocephin 2gm Ivpb (Pre-Docked)) 2 gm IVPB DAILY [facility] Last Admin: 02/29/16 10:06 Dose: 2 gm Diphenhydramine HCl (Benadryl Injection -) 25 mg IVPUSH HS PRN PRN Reason: INSOMNIA Haloperidol (Haldol -) 0.5 mg PO DAILY [facility] Last Admin: 02/29/16 11:04 Dose: 0.5 mg Heparin Sodium (Porcine) (Heparin -) 5,000 unit SQ BID [facility] Last Admin: 02/29/16 10:06 Dose: 5,000 unit Pantoprazole Sodium (Protonix 40mg Ivpb (Pre-Docked)) 100 mls @ 200 mls/hr IVPB DAILY [facility] Last Admin: 02/29/16 10:06 Dose: 200 mls/hr Levofloxacin (Levaquin 500 Mg Premixed Ivpb -) 100 mls @ 100 mls/hr IVPB DAILY [facility] Last Admin: 02/29/16 10:05 Dose: 100 mls/hr Insulin Aspart (Novolog Vial Sliding Scale -) 1 vial SQ ACHS [facility] PRN Reason: Protocol Last Admin: 02/29/16 11:41 Dose: Not Given Methylprednisolone Sodium Succinate (Solu-Medrol -) 30 mg IVPB BID [facility] Last Admin: 02/29/16 10:07 Dose: 30 mg Metronidazole (Flagyl -) 500 mg GT TID [facility] Last Admin: 02/29/16 07:03 Dose: 500 mg Potassium Phos/Sodium Phos (Phos-Nak Packet -) 1 packet GT TID [facility] Last Admin: 02/29/16 07:03 Dose: 1 packet Gen: vented, awake Heart: RRR Lung: decreased breath sounds on the left Abd: soft, nontender Ext: + edema Laboratory Results - last 24 hr 02/28/16 02/28/16 02/29/16 17:36 21:16 05:35 WBC 8.0 RBC 3.26 L Hgb 9.8 L Hct 29.9 L MCV 91.7 MCHC 32.8 RDW 17.6 H Plt Count 275 D MPV 7.3 L Neutrophils % 86.8 H Lymphocytes % 8.6 D Monocytes % 4.3 Eosinophils % 0.1 Basophils % 0.2 Sodium Potassium Chloride Carbon Dioxide Anion Gap BUN Creatinine Creat Clearance w eGFR POC Glucometer 139 117 Random Glucose Calcium Phosphorus Magnesium Total Bilirubin AST ALT Alkaline Phosphatase Total Protein Albumin 02/29/16 02/29/16 02/29/16 05:35 06:22 11:41 WBC RBC Hgb Hct MCV MCHC RDW Plt Count MPV Neutrophils % Lymphocytes % Monocytes % Eosinophils % Basophils % Sodium 133 L Potassium 4.4 Chloride 98 Carbon Dioxide 26 Anion Gap 9 BUN 23 H D Creatinine 0.4 L Creat Clearance w eGFR > 60 POC Glucometer 132 121 Random Glucose 128 H Calcium 8.1 L Phosphorus 3.5 D Magnesium 2.1 Total Bilirubin 0.2 D AST 15 D ALT 22 D Alkaline Phosphatase 31 L Total Protein 5.0 L Albumin 2.4 L A/P Chronic Respiratory Failure Pneumonia COPD Atrial Fibrillation GERD - Will schedule for Broch tomorrow - continue antibiotics per ID - inhaled bronchodilators - NPO after midnight - DVT/GI prophylaxis Dr Up
--- NOTE | 2016-02-29 13:35 | PN ---
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 (short form) - Note 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: awake alert remains on vent Vital Signs Period Temp Pulse Resp BP Sys/Castanon Pulse Ox Last 24 Hr 98.8 F-102.2 F 75-102 16-24 123-135/60-79 96-98 cor-rrr lungs decreased bs on left lung abd soft, ext no edema CBC, BMP 02/29/16 05:35 02/29/16 05:35 Microbiology 02/21/16 04:23 Respiratory Virus Panel - Preliminary Nasopharyngeal Swab 02/28/16 10:10 Urine Culture - Final Urine - Urine Lee NO GROWTH OBTAINED cxray left lung infiltrate Current Medications Acetaminophen (Tylenol -) 650 mg PO Q6H PRN PRN Reason: FEVER OR PAIN Last Admin: 02/29/16 11:04 Dose: 650 mg Acetaminophen (Ofirmev Injection -) 1,000 mg IVPB Q6H PRN PRN Reason: FEVER Last Admin: 02/29/16 03:12 Dose: 1,000 mg Albuterol/Ipratropium (Duoneb -) 1 amp NEB QIDR [facility] Last Admin: 02/29/16 12:25 Dose: 1 amp Bisacodyl (Dulcolax Suppository -) 10 mg RC DAILY PRN PRN Reason: CONSTIPATION Ceftriaxone Sodium (Rocephin 2gm Ivpb (Pre-Docked)) 2 gm IVPB DAILY [facility] Last Admin: 02/29/16 10:06 Dose: 2 gm Diphenhydramine HCl (Benadryl Injection -) 25 mg IVPUSH HS PRN PRN Reason: INSOMNIA Haloperidol (Haldol -) 0.5 mg PO DAILY [facility] Last Admin: 02/29/16 11:04 Dose: 0.5 mg Heparin Sodium (Porcine) (Heparin -) 5,000 unit SQ BID [facility] Last Admin: 02/29/16 10:06 Dose: 5,000 unit Pantoprazole Sodium (Protonix 40mg Ivpb (Pre-Docked)) 100 mls @ 200 mls/hr IVPB DAILY [facility] Last Admin: 02/29/16 10:06 Dose: 200 mls/hr Levofloxacin (Levaquin 500 Mg Premixed Ivpb -) 100 mls @ 100 mls/hr IVPB DAILY [facility] Last Admin: 02/29/16 10:05 Dose: 100 mls/hr Insulin Aspart (Novolog Vial Sliding Scale -) 1 vial SQ ACHS [facility] PRN Reason: Protocol Last Admin: 02/29/16 11:41 Dose: Not Given Methylprednisolone Sodium Succinate (Solu-Medrol -) 30 mg IVPB BID [facility] Last Admin: 02/29/16 10:07 Dose: 30 mg Metronidazole (Flagyl -) 500 mg GT TID [facility] Last Admin: 02/29/16 07:03 Dose: 500 mg Potassium Phos/Sodium Phos (Phos-Nak Packet -) 1 packet GT TID [facility] Last Admin: 02/29/16 07:03 Dose: 1 packet a/p fevers persist continue rocephin/levquin d/c flagyl d/w pulmonary for bronch in am
[2016-03-01] MEDS: NAPH,MB-DB/K PH,MBDB POWDER PACKET GT SCH ×3 (06:06→23:19)
[2016-03-01] MEDS: INSULIN SLIDING SCALE (NOVOLOG) 1 VIAL SQ SCH ×4 (06:07→23:50)
[2016-03-01] MEDS: ALBUTEROL SO4 2.5/IPRATROPIUM 0.5 INH SOL 3 ML VIAL.NEB. NEB SCH ×3 (06:46→17:17)
[2016-03-01] MEDS: ACETAMINOPHEN 1000 MG/100 ML VIAL (NON FORMULARY) IVPB PRN (06:54)
[2016-03-01 08:05] LABS: CALCIUM 7.9 mg/dL (8.5-10.1); CREATININE 0.4 mg/dL (0.55-1.02); POTASSIUM 3.6 mmol/L (3.5-5.1)
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
[2016-03-01] MEDS: methylPREDNISolone NA SUCC 40 MG/1 ML VIAL IVPB SCH ×2 (09:12→23:18)
[2016-03-01] MEDS: cefTRIAXone 2 GM/100 ML BAG (PRE-DOCKED) IVPB SCH (09:53)
[2016-03-01] MEDS: HALOPERIDOL 0.5 MG TABLET PO SCH (10:00)
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
[2016-03-01 11:46] LABS: PHOSPHOROUS 4.6 mg/dL (2.5-4.9)
[2016-03-01] MEDS: PANTOPRAZOLE SODIUM 100 ML IVPB SCH (12:27)
[2016-03-01] MEDS ORDERED: ACETYLCYSTEINE 20% 200MG/ML 30 ML VIAL *FOR ORAL / INH USE ONLY IH ONE (13:15)
--- NOTE | 2016-03-01 13:32 | PN ---
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 (short form) - Note 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: PULMONARY Pt hyponatremic this AM to 126, not cleared for anesthesia. Awake, denies shortness of breath. Still febrile. Last Vital Signs Temp Pulse Resp BP Pulse Ox 100.8 F H 88 14 120/59 95 03/01/16 09:26 03/01/16 09:55 03/01/16 10:35 03/01/16 07:37 03/01/16 09:55 Gen: vented, awake Heart: RRR Lung: decreased breath sounds left Abd: soft, nontender Ext: + edema CBC, BMP 02/29/16 05:35 03/01/16 06:30 Active Medications Acetaminophen (Tylenol -) 650 mg PO Q6H PRN PRN Reason: FEVER OR PAIN Last Admin: 02/29/16 11:04 Dose: 650 mg Acetaminophen (Ofirmev Injection -) 1,000 mg IVPB Q6H PRN PRN Reason: FEVER Last Admin: 03/01/16 06:54 Dose: 1,000 mg Albuterol/Ipratropium (Duoneb -) 1 amp NEB QIDR [facility] Last Admin: 03/01/16 12:07 Dose: 1 amp Bisacodyl (Dulcolax Suppository -) 10 mg RC DAILY PRN PRN Reason: CONSTIPATION Diphenhydramine HCl (Benadryl Injection -) 25 mg IVPUSH HS PRN PRN Reason: INSOMNIA Haloperidol (Haldol -) 0.5 mg PO DAILY [facility] Last Admin: 03/01/16 10:00 Dose: Not Given Heparin Sodium (Porcine) (Heparin -) 5,000 unit SQ BID [facility] Last Admin: 02/29/16 22:13 Dose: 5,000 unit Pantoprazole Sodium (Protonix 40mg Ivpb (Pre-Docked)) 100 mls @ 200 mls/hr IVPB DAILY [facility] Last Admin: 03/01/16 12:27 Dose: 200 mls/hr Levofloxacin (Levaquin 500 Mg Premixed Ivpb -) 100 mls @ 100 mls/hr IVPB DAILY [facility] Last Admin: 03/01/16 11:37 Dose: 100 mls/hr Ceftriaxone Sodium 2 gm/ (Sodium Chloride) 100 mls @ 200 mls/hr IVPB DAILY [facility] Insulin Aspart (Novolog Vial Sliding Scale -) 1 vial SQ ACHS [facility] PRN Reason: Protocol Last Admin: 03/01/16 11:44 Dose: Not Given Methylprednisolone Sodium Succinate (Solu-Medrol -) 30 mg IVPB BID [facility] Last Admin: 03/01/16 09:12 Dose: 30 mg Potassium Phos/Sodium Phos (Phos-Nak Packet -) 1 packet GT TID [facility] Last Admin: 03/01/16 06:06 Dose: Not Given A/P Chronic Respiratory Failure Pneumonia Left Atelectasis COPD Atrial Fibrillation GERD Hyponatremia - fluid restriction - monitor lytes - continue antibiotics per ID - f/u cultures - taper medrol - inhaled bronchodilators - enteral feeds - DVT/GI prophylaxis - will reschedule bronchoscopy when sodium levels improved
[2016-03-01] MEDS: SODIUM CHLORIDE 1,000 ML IV SCH (14:45)
[2016-03-01] MEDS: ACETAMINOPHEN 325 MG TABLET (FP) PO PRN (23:18)
[2016-03-02] MEDS: ALBUTEROL SO4 2.5/IPRATROPIUM 0.5 INH SOL 3 ML VIAL.NEB. NEB SCH ×5 (00:52→23:05)
[2016-03-02] MEDS ORDERED: INSULIN (NOVOLOG) ASPART 100 UNITS/ML 10ML VIAL ONE ×2 (06:28→12:38)
[2016-03-02] MEDS: NAPH,MB-DB/K PH,MBDB POWDER PACKET GT SCH ×3 (06:32→22:48)
[2016-03-02] MEDS: INSULIN SLIDING SCALE (NOVOLOG) 1 VIAL SQ SCH ×4 (06:32→23:01)
[2016-03-02 08:28] LABS: BASO % 0.5 % (0-2.0); EOS % 0.1 % (0-4.5); HEMATOCRIT 29.5 % (32.4-45.2); LYMPH % 13.2 % (8-40); MCH 31.3 pg (25.7-33.7); MCHC 33.9 g/dl (32.0-36.0); MEAN CELL VOLUME 92.1 fl (80-96); MEAN PLT VOLUME 7.1 fl (7.5-11.1); MONO % 5.4 % (3.8-10.2); NEUT % 80.8 % (42.8-82.8); PLATELET COUNT 231 K/MM3 (134-434); RBC 3.21 M/mm3 (3.60-5.2); WHITE BLOOD COUNT 5.7 K/mm3 (4.0-10.0)
[2016-03-02 08:58] LABS: CHLORIDE 98 mmol/L (98-107); POTASSIUM 3.2 mmol/L (3.5-5.1); SODIUM 129 mmol/L (136-145)
[2016-03-02 09:06] LABS: ALBUMIN 2.6 g/dl (3.4-5.0); ALK PHOS 25 U/L (45-117); ANION GAP 7 (8-16); BILIRUBIN,TOTAL 0.5 mg/dL (0.2-1.0); BLOOD UREA NITROGEN 20 mg/dL (7-18); CALCIUM 8.3 mg/dL (8.5-10.1); CO2 24 mmol/L (21-32); CREATININE 0.4 mg/dL (0.55-1.02); GLUCOSE,RANDOM 147 mg/dL (74-106); SGOT/AST 16 U/L (15-37); SGPT/ALT 22 U/L (12-78); TOT PROT 5.1 g/dl (6.4-8.2)
[2016-03-02] MEDS ORDERED: PT OWN MED DRAWER 7, Y5N ONE ×2 (11:09→11:23)
[2016-03-02] MEDS: methylPREDNISolone NA SUCC 40 MG/1 ML VIAL IVPB SCH ×2 (11:19→22:48)
[2016-03-02] MEDS: HEPARIN NA (PORCINE) 5,000 UNITS/ML 1ML VIAL SQ SCH ×2 (11:25→22:48)
[2016-03-02] MEDS: HALOPERIDOL 0.5 MG TABLET PO SCH (11:25)
--- NOTE | 2016-03-02 12:07 | PN ---
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 (short form) - Note 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: Awake and alert on AC mode of vent. 40% FiO2. CXR: 03/02/2016. Persistent left complete atelectasis. Intake & Output 02/28/16 02/29/16 03/01/16 03/02/16 23:59 23:59 23:59 23:59 Intake Total 3068 2490 1820 1190 Output Total 5100 2 Balance -2031 2488 1820 1190 Last Vital Signs Temp Pulse Resp BP Pulse Ox 100.2 F H 72 20 131/62 98 03/02/16 11:00 03/02/16 11:00 03/02/16 11:00 03/02/16 11:00 03/02/16 10:36 Active Medications Acetaminophen (Tylenol -) 650 mg PO Q6H PRN PRN Reason: FEVER OR PAIN Last Admin: 03/01/16 23:18 Dose: 650 mg Acetaminophen (Ofirmev Injection -) 1,000 mg IVPB Q6H PRN PRN Reason: FEVER Last Admin: 03/01/16 06:54 Dose: 1,000 mg Albuterol/Ipratropium (Duoneb -) 1 amp NEB QIDR [facility] Last Admin: 03/02/16 06:14 Dose: 1 amp Bisacodyl (Dulcolax Suppository -) 10 mg RC DAILY PRN PRN Reason: CONSTIPATION Diphenhydramine HCl (Benadryl Injection -) 25 mg IVPUSH HS PRN PRN Reason: INSOMNIA Haloperidol (Haldol -) 0.5 mg PO DAILY [facility] Last Admin: 03/02/16 11:25 Dose: 0.5 mg Heparin Sodium (Porcine) (Heparin -) 5,000 unit SQ BID [facility] Last Admin: 03/02/16 11:25 Dose: 5,000 unit Pantoprazole Sodium (Protonix 40mg Ivpb (Pre-Docked)) 100 mls @ 200 mls/hr IVPB DAILY [facility] Last Admin: 03/01/16 12:27 Dose: 200 mls/hr Levofloxacin (Levaquin 500 Mg Premixed Ivpb -) 100 mls @ 100 mls/hr IVPB DAILY [facility] Last Admin: 03/01/16 11:37 Dose: 100 mls/hr Ceftriaxone Sodium 2 gm/ (Sodium Chloride) 100 mls @ 200 mls/hr IVPB DAILY [facility] Sodium Chloride (Normal Saline -) 1,000 mls @ 40 mls/hr IV ASDIR [facility] Last Admin: 03/01/16 14:45 Dose: 40 mls/hr Insulin Aspart (Novolog Vial Sliding Scale -) 1 vial SQ ACHS [facility] PRN Reason: Protocol Last Admin: 03/02/16 06:32 Dose: 2 units Methylprednisolone Sodium Succinate (Solu-Medrol -) 30 mg IVPB BID [facility] Last Admin: 03/02/16 11:19 Dose: 30 mg Potassium Phos/Sodium Phos (Phos-Nak Packet -) 1 packet GT TID [facility] Last Admin: 03/02/16 06:32 Dose: 1 packet Gen: vented, awake Heart: RRR Lung: decreased breath sounds on the left Abd: soft, nontender Ext: + edema Laboratory Results - last 24 hr 03/01/16 03/01/16 03/01/16 06:30 11:43 16:15 WBC RBC Hgb Hct MCV MCHC RDW Plt Count MPV Neutrophils % Lymphocytes % Monocytes % Eosinophils % Basophils % Sodium Potassium Chloride Carbon Dioxide Anion Gap BUN Creatinine Creat Clearance w eGFR POC Glucometer 119 Random Glucose Serum Osmolality 272 L Calcium Total Bilirubin AST ALT Alkaline Phosphatase Total Protein Albumin Urine Osmolality 536 Ur Random Sodium 03/01/16 03/01/16 03/01/16 16:15 17:11 23:37 WBC RBC Hgb Hct MCV MCHC RDW Plt Count MPV Neutrophils % Lymphocytes % Monocytes % Eosinophils % Basophils % Sodium Potassium Chloride Carbon Dioxide Anion Gap BUN Creatinine Creat Clearance w eGFR POC Glucometer 121 148 Random Glucose Serum Osmolality Calcium Total Bilirubin AST ALT Alkaline Phosphatase Total Protein Albumin Urine Osmolality Ur Random Sodium 64 03/02/16 03/02/16 03/02/16 06:15 06:45 06:45 WBC 5.7 RBC 3.21 L Hgb 10.0 L Hct 29.5 L MCV 92.1 MCHC 33.9 RDW 17.0 H Plt Count 231 MPV 7.1 L Neutrophils % 80.8 Lymphocytes % 13.2 D Monocytes % 5.4 Eosinophils % 0.1 Basophils % 0.5 Sodium 129 L Potassium 3.2 L Chloride 98 Carbon Dioxide 24 Anion Gap 7 L BUN 20 H D Creatinine 0.4 L Creat Clearance w eGFR > 60 POC Glucometer 175 Random Glucose 147 H D Serum Osmolality Calcium 8.3 L Total Bilirubin 0.5 D AST 16 ALT 22 Alkaline Phosphatase 25 L Total Protein 5.1 L Albumin 2.6 L Urine Osmolality Ur Random Sodium A/P Chronic Respiratory Failure Pneumonia COPD Atrial Fibrillation GERD - Will schedule for Broch when cleared by anesthesia (HYponatremia) - Antibiotics per ID - inhaled bronchodilators - DVT/GI prophylaxis Dr Up
--- NOTE | 2016-03-02 12:24 | PN ---
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, Physician Chief Complaint: low grade temp 100.2 - Current Medication List Current Medications: Active Medications Acetaminophen (Tylenol -) 650 mg PO Q6H PRN PRN Reason: FEVER OR PAIN Last Admin: 03/01/16 23:18 Dose: 650 mg Acetaminophen (Ofirmev Injection -) 1,000 mg IVPB Q6H PRN PRN Reason: FEVER Last Admin: 03/01/16 06:54 Dose: 1,000 mg Albuterol/Ipratropium (Duoneb -) 1 amp NEB QIDR [facility] Last Admin: 03/02/16 06:14 Dose: 1 amp Bisacodyl (Dulcolax Suppository -) 10 mg RC DAILY PRN PRN Reason: CONSTIPATION Diphenhydramine HCl (Benadryl Injection -) 25 mg IVPUSH HS PRN PRN Reason: INSOMNIA Haloperidol (Haldol -) 0.5 mg PO DAILY [facility] Last Admin: 03/02/16 11:25 Dose: 0.5 mg Heparin Sodium (Porcine) (Heparin -) 5,000 unit SQ BID [facility] Last Admin: 03/02/16 11:25 Dose: 5,000 unit Pantoprazole Sodium (Protonix 40mg Ivpb (Pre-Docked)) 100 mls @ 200 mls/hr IVPB DAILY [facility] Last Admin: 03/01/16 12:27 Dose: 200 mls/hr Levofloxacin (Levaquin 500 Mg Premixed Ivpb -) 100 mls @ 100 mls/hr IVPB DAILY [facility] Last Admin: 03/01/16 11:37 Dose: 100 mls/hr Ceftriaxone Sodium 2 gm/ (Sodium Chloride) 100 mls @ 200 mls/hr IVPB DAILY [facility] Sodium Chloride (Normal Saline -) 1,000 mls @ 40 mls/hr IV ASDIR [facility] Last Admin: 03/01/16 14:45 Dose: 40 mls/hr Insulin Aspart (Novolog Vial Sliding Scale -) 1 vial SQ ACHS [facility] PRN Reason: Protocol Last Admin: 03/02/16 06:32 Dose: 2 units Methylprednisolone Sodium Succinate (Solu-Medrol -) 30 mg IVPB BID [facility] Last Admin: 03/02/16 11:19 Dose: 30 mg Potassium Chloride (K-Dur -) 40 meq PO ONCE ONE Stop: 03/02/16 12:20 Potassium Phos/Sodium Phos (Phos-Nak Packet -) 1 packet GT TID [facility] Last Admin: 03/02/16 06:32 Dose: 1 packet - Objective Vital Signs: Vital Signs Temperature 100.2 F H 03/02/16 11:00 Pulse Rate 72 03/02/16 11:00 Respiratory Rate 20 03/02/16 11:00 Blood Pressure 131/62 03/02/16 11:00 O2 Sat by Pulse Oximetry (%) 98 03/02/16 10:36 Constitutional: Yes: Calm Cardiovascular: Yes: Regular Rate and Rhythm, S1, S2 Respiratory: Yes: Diminished (on left side), Mechanically Ventilated Gastrointestinal: Yes: Normal Bowel Sounds, Soft, Other (g tube) Edema: No Wound/Incision: Yes: Other (stage 2) Neurological: Yes: Alert, Oriented (mouths words) Labs: CBC, BMP 03/02/16 06:45 03/02/16 06:45 INR, PTT INR 1.31 (0.82-1.09) H 02/20/16 00:10 Problem List - Problems (1) Afib Assessment/Plan: asa on hold bc of broncho rate control heparin subQ Code(s): I48.91 - UNSPECIFIED ATRIAL FIBRILLATION (2) Atelectasis of left lung Assessment/Plan: to get broncho once cleared by anesthesia for hyponatremia iv steroid decreaed dose Code(s): J98.11 - ATELECTASIS (3) Hyponatremia Assessment/Plan: iproving sodium on NS renal on board Code(s): E87.1 - HYPO-OSMOLALITY AND HYPONATREMIA (4) Mood disorder Assessment/Plan: haldol Code(s): F39 - UNSPECIFIED MOOD [AFFECTIVE] DISORDER (5) Hypokalemia Assessment/Plan: repleted check labs in AM Code(s): E87.6 - HYPOKALEMIA
[2016-03-02] MEDS: CEFTRIAXONE 2 GM in SODIUM CHLORIDE 100 ML IVPB SCH (12:36)
[2016-03-02] MEDS ORDERED: POTASSIUM CHLORIDE TABS 20 MEQ TABLET.ER (FP) PO ONE (12:45)
[2016-03-02] MEDS ORDERED: POTASSIUM CHLORIDE 40 MEQ/30 ML UNIT DOSE CUP PO ONE (13:15)
[2016-03-02] MEDS: SODIUM CHLORIDE 1,000 ML IV SCH (14:06)
[2016-03-02] MEDS: ACETAMINOPHEN 325 MG TABLET (FP) PO PRN (14:07)
[2016-03-02] MEDS ORDERED: FUROSEMIDE 40 MG/4 ML INJECTABLE VIAL IVPUSH ONE (14:22)
[2016-03-02] MEDS: PANTOPRAZOLE SODIUM 100 ML IVPB SCH (15:10)
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
--- NOTE | 2016-03-02 16:49 | PN ---
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 (short form) - Note 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: alert remains with intermittent fever Vital Signs Period Temp Pulse Resp BP Sys/Castanon Pulse Ox Last 24 Hr 98.9 F-101.0 F 69-81 12-22 123-164/62-80 98 trach to vent cor-rrr lungs decreased bs on left abd soft,nt ext no edema CBC, BMP 03/02/16 06:45 03/02/16 06:45 Microbiology 02/21/16 04:23 Nasopharyngeal Swab Respiratory Virus Panel - Final 02/28/16 10:10 Urine - Urine Lee Urine Culture - Final NO GROWTH OBTAINED 02/22/16 12:45 Blood - Peripheral Venous Blood Culture - Final NO GROWTH AFTER 5 DAYS INCUBATION 02/22/16 12:45 Blood - Peripheral Venous Blood Culture - Final NO GROWTH AFTER 5 DAYS INCUBATION 02/25/16 18:30 Stool Clostridium difficile Antigen (FATMATA) - Final 02/25/16 18:30 Stool Clostridium difficile Toxin Assay - Final 02/20/16 07:55 Urine - Urine - Catheterized Urine Culture - Final Proteus Mirabilis Enterococcus Faecalis 02/21/16 04:23 Sputum - Endotrachea Suction/Ventilator Gram Stain - Final 02/21/16 04:23 Sputum - Endotrachea Suction/Ventilator Sputum Culture - Final Staphylococcus Aureus Stenotrophomon.(X.)Maltophilia 02/20/16 09:10 Blood - Peripheral Venous Blood Culture - Final NO GROWTH AFTER 5 DAYS INCUBATION 02/20/16 09:10 Blood - Peripheral Venous Blood Culture - Final NO GROWTH AFTER 5 DAYS INCUBATION 02/20/16 00:10 Blood - Peripheral Venous Blood Culture - Final NO GROWTH AFTER 5 DAYS INCUBATION 02/20/16 00:10 Blood - Peripheral Venous Blood Culture - Final NO GROWTH AFTER 5 DAYS INCUBATION 02/22/16 03:00 Stool Clostridium difficile Antigen (FATMATA) - Final 02/22/16 03:00 Stool Clostridium difficile Toxin Assay - Final 02/21/16 04:23 Urine For Antigen Detection Legionella Antigen - Final 02/21/16 04:23 Urine For Antigen Detection Streptococcus pneumoniae Antigen (M - Final 02/21/16 04:23 Nasopharyngeal Swab Influenza Types A,B Antigen (FATMATA) - Final 02/21/16 04:23 Nasopharyngeal Swab - Final 02/20/16 09:00 Urine For Antigen Detection Legionella Antigen - Final 02/20/16 09:00 Urine For Antigen Detection Streptococcus pneumoniae Antigen (M - Final cxray complete whiteout left lung a/p suspect fevers are due to atelectasis of left lung continue rocephin/levaquin repaet cdiff hopefully bronch in am
[2016-03-02] MEDS: ACETAMINOPHEN 1000 MG/100 ML VIAL (NON FORMULARY) IVPB PRN (18:14)
[2016-03-03] MEDS: ACETAMINOPHEN 1000 MG/100 ML VIAL (NON FORMULARY) IVPB PRN ×2 (03:50→10:57)
[2016-03-03] MEDS: ALBUTEROL SO4 2.5/IPRATROPIUM 0.5 INH SOL 3 ML VIAL.NEB. NEB SCH ×4 (06:18→23:29)
[2016-03-03] MEDS: INSULIN SLIDING SCALE (NOVOLOG) 1 VIAL SQ SCH ×4 (06:44→22:47)
[2016-03-03] MEDS: NAPH,MB-DB/K PH,MBDB POWDER PACKET GT SCH ×3 (06:44→22:10)
[2016-03-03 08:16] LABS: ALBUMIN 2.6 g/dl (3.4-5.0); ANION GAP 9 (8-16); BLOOD UREA NITROGEN 23 mg/dL (7-18); CALCIUM 8.1 mg/dL (8.5-10.1); CHLORIDE 100 mmol/L (98-107); CO2 25 mmol/L (21-32); GLUCOSE,RANDOM 170 mg/dL (74-106); MAGNESIUM 1.9 mg/dL (1.8-2.4); POTASSIUM 3.3 mmol/L (3.5-5.1); SODIUM 134 mmol/L (136-145)
[2016-03-03 08:19] LABS: ALK PHOS 24 U/L (45-117); BILIRUBIN,TOTAL 0.5 mg/dL (0.2-1.0); CREATININE 0.4 mg/dL (0.55-1.02); PHOSPHOROUS 2.6 mg/dL (2.5-4.9); SGOT/AST 10 U/L (15-37); SGPT/ALT 20 U/L (12-78); TOT PROT 5.2 g/dl (6.4-8.2)
[2016-03-03] MEDS ORDERED: PT OWN MED DRAWER 7, Y5N ONE (10:08)
[2016-03-03] MEDS: methylPREDNISolone NA SUCC 40 MG/1 ML VIAL IVPB SCH ×2 (10:14→22:07)
[2016-03-03] MEDS: HALOPERIDOL 0.5 MG TABLET PO SCH (10:14)
[2016-03-03] MEDS: HEPARIN NA (PORCINE) 5,000 UNITS/ML 1ML VIAL SQ SCH ×2 (10:15→12:35)
[2016-03-03] MEDS: CEFTRIAXONE 2 GM in SODIUM CHLORIDE 100 ML IVPB SCH (11:53)
--- NOTE | 2016-03-03 12:24 | PN ---
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, Physician Chief Complaint: tmax 101.6 cxr is better today - Current Medication List Current Medications: Active Medications Acetaminophen (Tylenol -) 650 mg PO Q6H PRN PRN Reason: FEVER OR PAIN Last Admin: 03/02/16 14:07 Dose: 650 mg Acetaminophen (Ofirmev Injection -) 1,000 mg IVPB Q6H PRN PRN Reason: FEVER Last Admin: 03/03/16 10:57 Dose: 1,000 mg Albuterol/Ipratropium (Duoneb -) 1 amp NEB QIDR [facility] Last Admin: 03/03/16 11:42 Dose: 1 amp Bisacodyl (Dulcolax Suppository -) 10 mg RC DAILY PRN PRN Reason: CONSTIPATION Diphenhydramine HCl (Benadryl Injection -) 25 mg IVPUSH HS PRN PRN Reason: INSOMNIA Haloperidol (Haldol -) 0.5 mg PO DAILY [facility] Last Admin: 03/03/16 10:14 Dose: 0.5 mg Heparin Sodium (Porcine) (Heparin -) 5,000 unit SQ BID [facility] Last Admin: 03/03/16 10:15 Dose: Not Given Pantoprazole Sodium (Protonix 40mg Ivpb (Pre-Docked)) 100 mls @ 200 mls/hr IVPB DAILY [facility] Last Admin: 03/02/16 15:10 Dose: 200 mls/hr Levofloxacin (Levaquin 500 Mg Premixed Ivpb -) 100 mls @ 100 mls/hr IVPB DAILY [facility] Last Admin: 03/02/16 13:30 Dose: 100 mls/hr Ceftriaxone Sodium 2 gm/ (Sodium Chloride) 100 mls @ 200 mls/hr IVPB DAILY [facility] Last Admin: 03/03/16 11:53 Dose: 200 mls/hr Insulin Aspart (Novolog Vial Sliding Scale -) 1 vial SQ ACHS [facility] PRN Reason: Protocol Last Admin: 03/03/16 11:56 Dose: 2 units Methylprednisolone Sodium Succinate (Solu-Medrol -) 20 mg IVPB BID [facility] Last Admin: 03/03/16 10:14 Dose: 20 mg Potassium Chloride (Kcl Oral Solution -) 60 meq PO ONCE ONE Stop: 03/03/16 12:14 Potassium Phos/Sodium Phos (Phos-Nak Packet -) 1 packet GT TID [facility] Last Admin: 03/03/16 06:44 Dose: 1 packet - Objective Vital Signs: Vital Signs Temperature 101.7 F H 03/03/16 10:50 Pulse Rate 81 03/03/16 10:39 Respiratory Rate 22 03/03/16 10:39 Blood Pressure 123/61 03/03/16 10:13 O2 Sat by Pulse Oximetry (%) 98 03/03/16 10:39 Constitutional: Yes: Calm, Other (mouths her words) Neck: Yes: Trachea Midline, Other (trach) Cardiovascular: Yes: Regular Rate and Rhythm, S1, S2 Respiratory: Yes: Other (clear on right and good air entry on left upper zone dimished on left base) Gastrointestinal: Yes: Normal Bowel Sounds, Soft, Other (peg) Neurological: Yes: Alert, Oriented Labs: CBC, BMP 03/02/16 06:45 03/03/16 06:00 INR, PTT INR 1.31 (0.82-1.09) H 02/20/16 00:10 Problem List - Problems (1) Atelectasis of left lung Assessment/Plan: tmax 101 will await pulm folow up cxr is better li culture ordered Code(s): J98.11 - ATELECTASIS (2) Afib Assessment/Plan: asa on hold bc of broncho will continue to hold rate control heparin subQ Code(s): I48.91 - UNSPECIFIED ATRIAL FIBRILLATION (3) Hyponatremia Assessment/Plan: iv fluid stopped got lasix dose NS now 134 renal on board Code(s): E87.1 - HYPO-OSMOLALITY AND HYPONATREMIA (4) Mood disorder Assessment/Plan: haldol Code(s): F39 - UNSPECIFIED MOOD [AFFECTIVE] DISORDER (5) Hypokalemia Assessment/Plan: repleted check labs in AM Code(s): E87.6 - HYPOKALEMIA
[2016-03-03] MEDS: PANTOPRAZOLE SODIUM 100 ML IVPB SCH (13:30)
[2016-03-03] MEDS: POTASSIUM CHLORIDE 40 MEQ/30 ML UNIT DOSE CUP PO SCH ×2 (14:23→22:08)
[2016-03-03] MEDS: LACTOBACILLUS ACIDOPHILUS 1 TABLET PO SCH (14:23)
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
[2016-03-03] MEDS: FUROSEMIDE 40 MG/5 ML UNIT-DOSE CUP PO SCH ×2 (16:46→18:11)
--- NOTE | 2016-03-03 16:51 | PN ---
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 (short form) - Note 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: alert remains with intermittent fever Vital Signs Period Temp Pulse Resp BP Sys/Castanon Pulse Ox Last 24 Hr 101.1 F-102.4 F 74-83 15-23 123-149/61-71 98-98 trach to vent cor-rrr lungs decreased bs at bases abd soft,nt ext no edema cxray improved CBC, BMP 03/02/16 06:45 03/03/16 06:00 cxray improved a/p FUO repeat cxray in am if lungs remain improved in am will d/c antibiotics and observe will need to do further studies ie gallium scan, esr/crp
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
[2016-03-03] MEDS: AMINO ACIDS/PROTEIN HYDROLYS SUGAR-FREE 30 ML PACKET PO SCH (17:22)
[2016-03-03] MEDS ORDERED: INSULIN (NOVOLOG) ASPART 100 UNITS/ML 10ML VIAL ONE (19:07)
[2016-03-04] MEDS: HEPARIN NA (PORCINE) 5,000 UNITS/ML 1ML VIAL SQ SCH ×3 (00:20→21:59)
[2016-03-04] MEDS: ACETAMINOPHEN 325 MG TABLET (FP) PO PRN (02:51)
[2016-03-04] MEDS: ACETAMINOPHEN 1000 MG/100 ML VIAL (NON FORMULARY) IVPB PRN (06:53)
[2016-03-04] MEDS: NAPH,MB-DB/K PH,MBDB POWDER PACKET GT SCH ×3 (06:54→22:00)
[2016-03-04] MEDS: ALBUTEROL SO4 2.5/IPRATROPIUM 0.5 INH SOL 3 ML VIAL.NEB. NEB SCH ×3 (07:15→18:10)
[2016-03-04] MEDS: INSULIN SLIDING SCALE (NOVOLOG) 1 VIAL SQ SCH ×4 (07:22→22:00)
[2016-03-04] MEDS: AMINO ACIDS/PROTEIN HYDROLYS SUGAR-FREE 30 ML PACKET PO SCH ×2 (09:00→17:30)
--- NOTE | 2016-03-04 09:34 | PN ---
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, Physician - Current Medication List Current Medications: Active Medications Acetaminophen (Tylenol -) 650 mg PO Q6H PRN PRN Reason: FEVER OR PAIN Last Admin: 03/04/16 02:51 Dose: 650 mg Acetaminophen (Ofirmev Injection -) 1,000 mg IVPB Q6H PRN PRN Reason: FEVER Last Admin: 03/04/16 06:53 Dose: 1,000 mg Albuterol/Ipratropium (Duoneb -) 1 amp NEB QIDR [facility] Last Admin: 03/04/16 07:15 Dose: 1 amp Amino Acids (Prostat Sugar-Free Packet -) 30 ml PO BID@0800,1730 [facility] Last Admin: 03/03/16 17:22 Dose: 30 ml Bisacodyl (Dulcolax Suppository -) 10 mg RC DAILY PRN PRN Reason: CONSTIPATION Diphenhydramine HCl (Benadryl Injection -) 25 mg IVPUSH HS PRN PRN Reason: INSOMNIA Furosemide (Lasix Oral Solution -) 40 mg PO DAILY [facility] Last Admin: 03/03/16 18:11 Dose: 40 mg Haloperidol (Haldol -) 0.5 mg PO DAILY [facility] Last Admin: 03/03/16 10:14 Dose: 0.5 mg Heparin Sodium (Porcine) (Heparin -) 5,000 unit SQ BID [facility] Last Admin: 03/04/16 00:20 Dose: 5,000 unit Pantoprazole Sodium (Protonix 40mg Ivpb (Pre-Docked)) 100 mls @ 200 mls/hr IVPB DAILY [facility] Last Admin: 03/03/16 13:30 Dose: 200 mls/hr Levofloxacin (Levaquin 500 Mg Premixed Ivpb -) 100 mls @ 100 mls/hr IVPB DAILY [facility] Last Admin: 03/03/16 12:34 Dose: 100 mls/hr Ceftriaxone Sodium 2 gm/ (Sodium Chloride) 100 mls @ 200 mls/hr IVPB DAILY [facility] Last Admin: 03/03/16 11:53 Dose: 200 mls/hr Insulin Aspart (Novolog Vial Sliding Scale -) 1 vial SQ ACHS [facility] PRN Reason: Protocol Last Admin: 03/04/16 07:22 Dose: 4 units Lactobacillus Acidophilus (Bacid -) 1 tab PO DAILY [facility] Last Admin: 03/03/16 14:23 Dose: 1 tab Methylprednisolone Sodium Succinate (Solu-Medrol -) 20 mg IVPB BID [facility] Last Admin: 03/03/16 22:07 Dose: 20 mg Potassium Chloride (Kcl Oral Solution -) 30 meq PO BID [facility] Stop: 03/04/16 22:01 Last Admin: 03/03/16 22:08 Dose: 30 meq Potassium Phos/Sodium Phos (Phos-Nak Packet -) 1 packet GT TID [facility] Last Admin: 03/04/16 06:54 Dose: 1 packet - Objective Vital Signs: Vital Signs Temperature 102.1 F H 03/04/16 06:00 Pulse Rate 74 03/04/16 06:00 Respiratory Rate 15 03/04/16 07:41 Blood Pressure 147/74 03/04/16 06:00 O2 Sat by Pulse Oximetry (%) 99 03/03/16 11:30 Cardiovascular: Yes: S1, S2 Respiratory: Yes: CTA Bilaterally Gastrointestinal: Yes: Normal Bowel Sounds, Soft, Other (MILD YELLOW DC FROM PEG SITE) Edema: Yes Labs: CBC, BMP 03/02/16 06:45 INR, PTT INR 1.31 (0.82-1.09) H 02/20/16 00:10 Problem List - Problems (1) Afib Code(s): I48.91 - UNSPECIFIED ATRIAL FIBRILLATION (2) COPD (chronic obstructive pulmonary disease) Code(s): J44.9 - CHRONIC OBSTRUCTIVE PULMONARY DISEASE, UNSPECIFIED Qualifiers : Qualified Code(s): J44.9 - Chronic obstructive pulmonary disease, unspecified (3) Diabetes Code(s): E11.9 - TYPE 2 DIABETES MELLITUS WITHOUT COMPLICATIONS (4) HCAP (healthcare-associated pneumonia) Code(s): J18.9 - PNEUMONIA, UNSPECIFIED ORGANISM (5) Mood disorder Code(s): F39 - UNSPECIFIED MOOD [AFFECTIVE] DISORDER (6) Paralysis Code(s): G83.9 - PARALYTIC SYNDROME, UNSPECIFIED (7) Ventilator dependent Code(s): Z99.11 - DEPENDENCE ON RESPIRATOR [VENTILATOR] STATUS (8) GERD (gastroesophageal reflux disease) Code(s): K21.9 - GASTRO-ESOPHAGEAL REFLUX DISEASE WITHOUT ESOPHAGITIS (9) PEG tube malfunction Code(s): K94.23 - GASTROSTOMY MALFUNCTION Assessment/Plan (1) Atelectasis of left lung Assessment/Plan: pulm folow up cxr is better li culture ordered ->f/u Code(s): J98.11 - ATELECTASIS (2) Afib Assessment/Plan: asa on hold bc of broncho will continue to hold rate control heparin subQ Code(s): I48.91 - UNSPECIFIED ATRIAL FIBRILLATION (3) Hyponatremia Assessment/Plan: got lasix dose NS 134 -> f/u renal on board Code(s): E87.1 - HYPO-OSMOLALITY AND HYPONATREMIA (4) Mood disorder Assessment/Plan: haldol Code(s): F39 - UNSPECIFIED MOOD [AFFECTIVE] DISORDER (5) Hypokalemia Assessment/Plan: repleted check labs in AM -> f/u Code(s): E87.6 - HYPOKALEMIA (6) PEG tube malfunction Code(s): K94.23 - GASTROSTOMY MALFUNCTION MILD DISCHARGE FROM PEG SITE -> DEFER TO GI NUTRITION ON CASE FOR 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
[2016-03-04 09:57] LABS: POTASSIUM 3.9 mmol/L (3.5-5.1)
[2016-03-04 10:04] LABS: CALCIUM 8.4 mg/dL (8.5-10.1); CREATININE 0.4 mg/dL (0.55-1.02)
[2016-03-04] MEDS: methylPREDNISolone NA SUCC 40 MG/1 ML VIAL IVPB SCH ×2 (11:14→22:01)
[2016-03-04] MEDS: LACTOBACILLUS ACIDOPHILUS 1 TABLET PO SCH (11:16)
[2016-03-04] MEDS: HALOPERIDOL 0.5 MG TABLET PO SCH (11:17)
[2016-03-04] MEDS: POTASSIUM CHLORIDE 40 MEQ/30 ML UNIT DOSE CUP PO SCH ×2 (11:17→21:59)
[2016-03-04] MEDS: FUROSEMIDE 40 MG/5 ML UNIT-DOSE CUP PO SCH (11:18)
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
[2016-03-04] MEDS: PANTOPRAZOLE SODIUM 100 ML IVPB SCH (12:15)
[2016-03-04] MEDS ORDERED: INSULIN (NOVOLOG) ASPART 100 UNITS/ML 10ML VIAL ONE ×3 (12:29→21:15)
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
[2016-03-04] MEDS: CEFTRIAXONE 2 GM in SODIUM CHLORIDE 100 ML IVPB SCH (13:14)
--- NOTE | 2016-03-04 13:40 | PN ---
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 (short form) - Note 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: alert Vital Signs Period Temp Pulse Resp BP Sys/Castanon Pulse Ox Last 24 Hr 99 F-102.1 F 29-83 15-23 113-147/8-80 trach to vent cor-rrr lungs bilateral rhonchi abd soft,nt +GT ext trace edema cxra improved Microbiology 02/20/16 09:10 Blood - Peripheral Venous Blood Culture - Final NO GROWTH AFTER 5 DAYS INCUBATION Laboratory Tests 03/04/16 03/04/16 07:00 07:00 ESR 8 C-Reactive Protein < 0.3 CBC, BMP 03/02/16 06:45 03/04/16 07:00 Microbiology 03/03/16 13:25 Blood - Peripheral Venous Blood Culture - Preliminary NO GROWTH OBTAINED AFTER 24 HOURS, INCUBATION TO CONTINUE FOR 4 DAYS. 03/03/16 13:25 Blood - Peripheral Venous Blood Culture - Preliminary NO GROWTH OBTAINED AFTER 24 HOURS, INCUBATION TO CONTINUE FOR 4 DAYS. 03/02/16 11:30 Stool Clostridium difficile Antigen (FATMATA) - Final 03/02/16 11:30 Stool Clostridium difficile Toxin Assay - Final a/p FUO normal esr/crp normal WBC, normal LFTS going to stop antibiotics and observe apparently was having fevers at [facility]- will need to request records
[2016-03-04] MEDS ORDERED: ACETAMINOPHEN 1000 MG/100 ML VIAL (NON FORMULARY) IVPB PRN (15:41)
[2016-03-04] MEDS: SILVER SULFADIAZINE 1% TOP CREAM 50 GM JAR TP SCH ×2 (15:46→22:01)
[2016-03-04] MEDS: NYSTATIN 100,000 UNIT/GM TOPICAL CREAM 15 GM TUBE TP SCH ×2 (15:47→22:00)
[2016-03-04] MEDS ORDERED: PT OWN MED DRAWER 7, Y5N ONE (15:49)
[2016-03-04] MEDS: ACETAMINOPHEN 650 MG/20.3 ML ORAL SOLUTION (CUPS) GT PRN (16:07)
[2016-03-05] MEDS: ALBUTEROL SO4 2.5/IPRATROPIUM 0.5 INH SOL 3 ML VIAL.NEB. NEB SCH ×4 (00:24→18:09)
[2016-03-05] MEDS: NAPH,MB-DB/K PH,MBDB POWDER PACKET GT SCH ×3 (06:33→22:46)
[2016-03-05] MEDS: INSULIN SLIDING SCALE (NOVOLOG) 1 VIAL SQ SCH ×4 (06:33→23:04)
[2016-03-05] MEDS ORDERED: PT OWN MED DRAWER 7, Y5N ONE ×2 (06:44→22:49)
[2016-03-05] MEDS ORDERED: INSULIN (NOVOLOG) ASPART 100 UNITS/ML 10ML VIAL ONE ×2 (06:45→11:16)
[2016-03-05 07:48] LABS: BASO % 0.1 % (0-2.0); EOS % 0.1 % (0-4.5); HEMATOCRIT 29.5 % (32.4-45.2); LYMPH % 8.6 % (8-40); MCH 31.5 pg (25.7-33.7); MCHC 33.9 g/dl (32.0-36.0); MEAN CELL VOLUME 92.8 fl (80-96); MEAN PLT VOLUME 6.9 fl (7.5-11.1); MONO % 4.3 % (3.8-10.2); NEUT % 86.9 % (42.8-82.8); PLATELET COUNT 180 K/MM3 (134-434); RBC 3.18 M/mm3 (3.60-5.2); RDW 17.4 % (11.6-15.6); WHITE BLOOD COUNT 7.3 K/mm3 (4.0-10.0)
[2016-03-05 08:54] LABS: ALBUMIN 2.8 g/dl (3.4-5.0); ANION GAP 9 (8-16); BLOOD UREA NITROGEN 30 mg/dL (7-18); CALCIUM 8.6 mg/dL (8.5-10.1); CHLORIDE 102 mmol/L (98-107); CO2 28 mmol/L (21-32); CREATININE 0.5 mg/dL (0.55-1.02); GLUCOSE,RANDOM 146 mg/dL (74-106); POTASSIUM 4.4 mmol/L (3.5-5.1); SGOT/AST 11 U/L (15-37); SGPT/ALT 20 U/L (12-78); SODIUM 139 mmol/L (136-145)
[2016-03-05 08:56] LABS: ALK PHOS 22 U/L (45-117); BILIRUBIN,TOTAL 0.4 mg/dL (0.2-1.0); TOT PROT 5.3 g/dl (6.4-8.2)
[2016-03-05] MEDS: methylPREDNISolone NA SUCC 40 MG/1 ML VIAL IVPB SCH ×2 (09:24→22:46)
[2016-03-05] MEDS: LACTOBACILLUS ACIDOPHILUS 1 TABLET PO SCH (09:25)
[2016-03-05] MEDS: AMINO ACIDS/PROTEIN HYDROLYS SUGAR-FREE 30 ML PACKET PO SCH ×2 (09:25→17:33)
[2016-03-05] MEDS: HALOPERIDOL 0.5 MG TABLET PO SCH (09:26)
[2016-03-05] MEDS: HEPARIN NA (PORCINE) 5,000 UNITS/ML 1ML VIAL SQ SCH ×2 (09:40→22:45)
[2016-03-05] MEDS: FUROSEMIDE 40 MG/5 ML UNIT-DOSE CUP PO SCH (09:42)
[2016-03-05] MEDS: PANTOPRAZOLE SODIUM 100 ML IVPB SCH (09:45)
--- NOTE | 2016-03-05 12:10 | PN ---
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, Physician - Current Medication List Current Medications: Active Medications Acetaminophen (Tylenol Oral Solution -) 650 mg GT Q6H PRN PRN Reason: FEVER OR PAIN Last Admin: 03/04/16 16:07 Dose: 650 mg Acetaminophen (Ofirmev Injection -) 1,000 mg IVPB Q6H PRN PRN Reason: FEVER Albuterol/Ipratropium (Duoneb -) 1 amp NEB QIDR [facility] Last Admin: 03/05/16 06:59 Dose: 1 amp Amino Acids (Prostat Sugar-Free Packet -) 30 ml PO BID@0800,1730 [facility] Last Admin: 03/05/16 09:25 Dose: 30 ml Bisacodyl (Dulcolax Suppository -) 10 mg RC DAILY PRN PRN Reason: CONSTIPATION Diphenhydramine HCl (Benadryl Injection -) 25 mg IVPUSH HS PRN PRN Reason: INSOMNIA Furosemide (Lasix Oral Solution -) 40 mg PO DAILY [facility] Last Admin: 03/05/16 09:42 Dose: 40 mg Haloperidol (Haldol -) 0.5 mg PO DAILY [facility] Last Admin: 03/05/16 09:26 Dose: 0.5 mg Heparin Sodium (Porcine) (Heparin -) 5,000 unit SQ BID [facility] Last Admin: 03/05/16 09:40 Dose: 5,000 unit Pantoprazole Sodium (Protonix 40mg Ivpb (Pre-Docked)) 100 mls @ 200 mls/hr IVPB DAILY [facility] Last Admin: 03/05/16 09:45 Dose: 200 mls/hr Insulin Aspart (Novolog Vial Sliding Scale -) 1 vial SQ ACHS [facility] PRN Reason: Protocol Last Admin: 03/05/16 11:18 Dose: 2 units Lactobacillus Acidophilus (Bacid -) 1 tab PO DAILY [facility] Last Admin: 03/05/16 09:25 Dose: 1 tab Methylprednisolone Sodium Succinate (Solu-Medrol -) 20 mg IVPB BID [facility] Last Admin: 03/05/16 09:24 Dose: 20 mg Nystatin (Mycostatin Cream -) 1 applic TP BID [facility] Last Admin: 03/04/16 22:00 Dose: 1 applic Potassium Phos/Sodium Phos (Phos-Nak Packet -) 1 packet GT TID [facility] Last Admin: 03/05/16 06:33 Dose: 1 packet Silver Sulfadiazine (Silvadene -) 1 applic TP BID [facility] Last Admin: 03/04/16 22:01 Dose: 1 applic - Objective Vital Signs: Vital Signs Temperature 99.1 F 03/05/16 09:15 Pulse Rate 78 03/05/16 09:15 Respiratory Rate 22 03/05/16 09:15 Blood Pressure 116/76 03/05/16 09:15 O2 Sat by Pulse Oximetry (%) 100 03/04/16 21:00 Cardiovascular: Yes: S1, S2 Respiratory: Yes: CTA Bilaterally Gastrointestinal: Yes: Normal Bowel Sounds, Soft Edema: Yes Labs: CBC, BMP 03/05/16 06:55 03/05/16 06:55 INR, PTT INR 1.31 (0.82-1.09) H 02/20/16 00:10 Problem List - Problems (1) Afib Code(s): I48.91 - UNSPECIFIED ATRIAL FIBRILLATION (2) COPD (chronic obstructive pulmonary disease) Code(s): J44.9 - CHRONIC OBSTRUCTIVE PULMONARY DISEASE, UNSPECIFIED Qualifiers : COPD type: unspecified COPD Qualified Code(s): J44.9 - Chronic obstructive pulmonary disease, unspecified (3) Diabetes Code(s): E11.9 - TYPE 2 DIABETES MELLITUS WITHOUT COMPLICATIONS (4) HCAP (healthcare-associated pneumonia) Code(s): J18.9 - PNEUMONIA, UNSPECIFIED ORGANISM (5) Mood disorder Code(s): F39 - UNSPECIFIED MOOD [AFFECTIVE] DISORDER (6) Paralysis Code(s): G83.9 - PARALYTIC SYNDROME, UNSPECIFIED (7) Ventilator dependent Code(s): Z99.11 - DEPENDENCE ON RESPIRATOR [VENTILATOR] STATUS (8) GERD (gastroesophageal reflux disease) Code(s): K21.9 - GASTRO-ESOPHAGEAL REFLUX DISEASE WITHOUT ESOPHAGITIS (9) PEG tube malfunction Code(s): K94.23 - GASTROSTOMY MALFUNCTION Assessment/Plan (1) Atelectasis of left lung Assessment/Plan: pulm folow up cxr is better li culture ordered -> neg Code(s): J98.11 - ATELECTASIS (2) Afib Assessment/Plan: asa on hold bc of broncho will continue to hold -> needs anesthesia clearance rate control only on heparin subQ Code(s): I48.91 - UNSPECIFIED ATRIAL FIBRILLATION (3) Hyponatremia Assessment/Plan: resolved renal on board Code(s): E87.1 - HYPO-OSMOLALITY AND HYPONATREMIA (4) Mood disorder Assessment/Plan: haldol Code(s): F39 - UNSPECIFIED MOOD [AFFECTIVE] DISORDER (5) Hypokalemia Assessment/Plan: resolved Code(s): E87.6 - HYPOKALEMIA (6) PEG tube malfunction Code(s): K94.23 - GASTROSTOMY MALFUNCTION MILD DISCHARGE FROM PEG SITE -> DEFER TO GI NUTRITION ON CASE FOR 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
[2016-03-05] MEDS: NYSTATIN 100,000 UNIT/GM TOPICAL CREAM 15 GM TUBE TP SCH ×2 (12:40→22:45)
[2016-03-05] MEDS: SILVER SULFADIAZINE 1% TOP CREAM 50 GM JAR TP SCH ×2 (12:40→22:46)
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
--- NOTE | 2016-03-05 13:34 | PN ---
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, Physician Chief Complaint: Hematuria Hyponatremia Quadruplegia Vent dependent Patient is comfortable. In no distress. - Current Medication List Current Medications: Active Medications Acetaminophen (Tylenol Oral Solution -) 650 mg GT Q6H PRN PRN Reason: FEVER OR PAIN Last Admin: 03/04/16 16:07 Dose: 650 mg Acetaminophen (Ofirmev Injection -) 1,000 mg IVPB Q6H PRN PRN Reason: FEVER Albuterol/Ipratropium (Duoneb -) 1 amp NEB QIDR [facility] Last Admin: 03/05/16 12:13 Dose: 1 amp Amino Acids (Prostat Sugar-Free Packet -) 30 ml PO BID@0800,1730 [facility] Last Admin: 03/05/16 09:25 Dose: 30 ml Bisacodyl (Dulcolax Suppository -) 10 mg RC DAILY PRN PRN Reason: CONSTIPATION Diphenhydramine HCl (Benadryl Injection -) 25 mg IVPUSH HS PRN PRN Reason: INSOMNIA Furosemide (Lasix Oral Solution -) 40 mg PO DAILY [facility] Last Admin: 03/05/16 09:42 Dose: 40 mg Haloperidol (Haldol -) 0.5 mg PO DAILY [facility] Last Admin: 03/05/16 09:26 Dose: 0.5 mg Heparin Sodium (Porcine) (Heparin -) 5,000 unit SQ BID [facility] Last Admin: 03/05/16 09:40 Dose: 5,000 unit Pantoprazole Sodium (Protonix 40mg Ivpb (Pre-Docked)) 100 mls @ 200 mls/hr IVPB DAILY [facility] Last Admin: 03/05/16 09:45 Dose: 200 mls/hr Insulin Aspart (Novolog Vial Sliding Scale -) 1 vial SQ ACHS [facility] PRN Reason: Protocol Last Admin: 03/05/16 11:18 Dose: 2 units Lactobacillus Acidophilus (Bacid -) 1 tab PO DAILY [facility] Last Admin: 03/05/16 09:25 Dose: 1 tab Methylprednisolone Sodium Succinate (Solu-Medrol -) 20 mg IVPB BID [facility] Last Admin: 03/05/16 09:24 Dose: 20 mg Nystatin (Mycostatin Cream -) 1 applic TP BID [facility] Last Admin: 03/05/16 12:40 Dose: 1 applic Potassium Phos/Sodium Phos (Phos-Nak Packet -) 1 packet GT TID [facility] Last Admin: 03/05/16 06:33 Dose: 1 packet Silver Sulfadiazine (Silvadene -) 1 applic TP BID [facility] Last Admin: 03/05/16 12:40 Dose: 1 applic - Objective Vital Signs: Vital Signs Temperature 99.1 F 03/05/16 09:15 Pulse Rate 78 03/05/16 09:15 Respiratory Rate 20 03/05/16 11:05 Blood Pressure 116/76 03/05/16 09:15 O2 Sat by Pulse Oximetry (%) 100 03/04/16 21:00 Constitutional: Yes: No Distress, Calm Eyes: Yes: WNL, Conjunctiva Clear HENT: Yes: WNL, Atraumatic, Normocephalic Neck: Yes: Supple Cardiovascular: Yes: Regular Rate and Rhythm, S1, S2. No: JVD, Gallop, Murmur Respiratory: Yes: Diminished, Mechanically Ventilated, Rhonchi Gastrointestinal: Yes: WNL, Normal Bowel Sounds, Soft Labs: CBC, BMP 03/05/16 06:55 03/05/16 06:55 INR, PTT INR 1.31 (0.82-1.09) H 02/20/16 00:10 Problem List - Problems (1) Afib Code(s): I48.91 - UNSPECIFIED ATRIAL FIBRILLATION (2) COPD (chronic obstructive pulmonary disease) Code(s): J44.9 - CHRONIC OBSTRUCTIVE PULMONARY DISEASE, UNSPECIFIED Qualifiers : COPD type: unspecified COPD Qualified Code(s): J44.9 - Chronic obstructive pulmonary disease, unspecified (3) Chronic respiratory disease Code(s): J98.9 - RESPIRATORY DISORDER, UNSPECIFIED (4) Closed cervical spine fracture Code(s): S12.9XXA - FRACTURE OF NECK, UNSPECIFIED, INITIAL ENCOUNTER (5) Diabetes Code(s): E11.9 - TYPE 2 DIABETES MELLITUS WITHOUT COMPLICATIONS (6) Fever Code(s): R50.9 - FEVER, UNSPECIFIED Qualifiers: Fever type: unspecified Qualified Code(s): R50.9 - Fever, unspecified (7) GERD (gastroesophageal reflux disease) Code(s): K21.9 - GASTRO-ESOPHAGEAL REFLUX DISEASE WITHOUT ESOPHAGITIS (8) PEG tube malfunction Code(s): K94.23 - GASTROSTOMY MALFUNCTION (9) Paralysis Code(s): G83.9 - PARALYTIC SYNDROME, UNSPECIFIED (10) Ventilator dependent Code(s): Z99.11 - DEPENDENCE ON RESPIRATOR [VENTILATOR] STATUS (11) Hyponatremia Code(s): E87.1 - HYPO-OSMOLALITY AND HYPONATREMIA Assessment/Plan 70 y/o female: Admitted with high grade fever. Still febrile periodically. Off Ceftriaxone Will observe. Hyponatremia...Slowly improving. Today S Na 139 mEq/L Serum Potassium in acceptable range. Suggest: Continue the current management. Will monitor the Renal/ Electrolyte profile with you. Jackeline Vasquez MD
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
[2016-03-06] MEDS: ALBUTEROL SO4 2.5/IPRATROPIUM 0.5 INH SOL 3 ML VIAL.NEB. NEB SCH ×4 (06:18→18:45)
[2016-03-06] MEDS: NAPH,MB-DB/K PH,MBDB POWDER PACKET GT SCH ×3 (06:39→22:11)
[2016-03-06] MEDS: INSULIN SLIDING SCALE (NOVOLOG) 1 VIAL SQ SCH ×4 (06:43→22:38)
[2016-03-06 07:37] LABS: BASO % 0.7 % (0-2.0); EOS % 0.1 % (0-4.5); HEMATOCRIT 28.6 % (32.4-45.2); HEMOGLOBIN 9.8 GM/dL (10.7-15.3); LYMPH % 8.6 % (8-40); MCH 31.6 pg (25.7-33.7); MCHC 34.1 g/dl (32.0-36.0); MEAN CELL VOLUME 92.4 fl (80-96); MEAN PLT VOLUME 7.3 fl (7.5-11.1); MONO % 2.7 % (3.8-10.2); NEUT % 87.9 % (42.8-82.8); PLATELET COUNT 165 K/MM3 (134-434); RDW 17.1 % (11.6-15.6); WHITE BLOOD COUNT 5.2 K/mm3 (4.0-10.0)
[2016-03-06 08:08] LABS: ALBUMIN 2.8 g/dl (3.4-5.0); ANION GAP 6 (8-16); BLOOD UREA NITROGEN 31 mg/dL (7-18); CALCIUM 9.1 mg/dL (8.5-10.1); CHLORIDE 102 mmol/L (98-107); CO2 30 mmol/L (21-32); GLUCOSE,RANDOM 170 mg/dL (74-106); SODIUM 138 mmol/L (136-145)
[2016-03-06 08:13] LABS: ALK PHOS 25 U/L (45-117); BILIRUBIN,TOTAL 0.4 mg/dL (0.2-1.0); CREATININE 0.4 mg/dL (0.55-1.02); SGPT/ALT 20 U/L (12-78); TOT PROT 5.4 g/dl (6.4-8.2)
[2016-03-06 08:18] LABS: POTASSIUM 3.8 mmol/L (3.5-5.1); SGOT/AST 16 U/L (15-37)
[2016-03-06] MEDS ORDERED: PT OWN MED DRAWER 7, Y5N ONE ×2 (09:36→10:22)
[2016-03-06] MEDS: LACTOBACILLUS ACIDOPHILUS 1 TABLET PO SCH (10:19)
[2016-03-06] MEDS: SILVER SULFADIAZINE 1% TOP CREAM 50 GM JAR TP SCH ×2 (10:19→22:40)
[2016-03-06] MEDS: methylPREDNISolone NA SUCC 40 MG/1 ML VIAL IVPB SCH (10:19)
[2016-03-06] MEDS: NYSTATIN 100,000 UNIT/GM TOPICAL CREAM 15 GM TUBE TP SCH ×2 (10:19→22:39)
[2016-03-06] MEDS: HEPARIN NA (PORCINE) 5,000 UNITS/ML 1ML VIAL SQ SCH ×2 (10:20→22:11)
[2016-03-06] MEDS: AMINO ACIDS/PROTEIN HYDROLYS SUGAR-FREE 30 ML PACKET PO SCH ×2 (10:20→18:22)
[2016-03-06] MEDS: FUROSEMIDE 40 MG/5 ML UNIT-DOSE CUP PO SCH (10:22)
[2016-03-06] MEDS: HALOPERIDOL 0.5 MG TABLET PO SCH (10:22)
--- NOTE | 2016-03-06 10:49 | PN ---
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, Physician - Current Medication List Current Medications: Active Medications Acetaminophen (Tylenol Oral Solution -) 650 mg GT Q6H PRN PRN Reason: FEVER OR PAIN Last Admin: 03/04/16 16:07 Dose: 650 mg Acetaminophen (Ofirmev Injection -) 1,000 mg IVPB Q6H PRN PRN Reason: FEVER Albuterol/Ipratropium (Duoneb -) 1 amp NEB QIDR [facility] Last Admin: 03/06/16 06:18 Dose: 1 amp Amino Acids (Prostat Sugar-Free Packet -) 30 ml PO BID@0800,1730 [facility] Last Admin: 03/06/16 10:20 Dose: 30 ml Bisacodyl (Dulcolax Suppository -) 10 mg RC DAILY PRN PRN Reason: CONSTIPATION Diphenhydramine HCl (Benadryl Injection -) 25 mg IVPUSH HS PRN PRN Reason: INSOMNIA Furosemide (Lasix Oral Solution -) 40 mg PO DAILY [facility] Last Admin: 03/06/16 10:22 Dose: 40 mg Haloperidol (Haldol -) 0.5 mg PO DAILY [facility] Last Admin: 03/06/16 10:22 Dose: 0.5 mg Heparin Sodium (Porcine) (Heparin -) 5,000 unit SQ BID [facility] Last Admin: 03/06/16 10:20 Dose: 5,000 unit Pantoprazole Sodium (Protonix 40mg Ivpb (Pre-Docked)) 100 mls @ 200 mls/hr IVPB DAILY [facility] Last Admin: 03/05/16 09:45 Dose: 200 mls/hr Insulin Aspart (Novolog Vial Sliding Scale -) 1 vial SQ ACHS [facility] PRN Reason: Protocol Last Admin: 03/06/16 06:43 Dose: 2 units Lactobacillus Acidophilus (Bacid -) 1 tab PO DAILY [facility] Last Admin: 03/06/16 10:19 Dose: 1 tab Methylprednisolone Sodium Succinate (Solu-Medrol -) 20 mg IVPB BID [facility] Last Admin: 03/06/16 10:19 Dose: 20 mg Nystatin (Mycostatin Cream -) 1 applic TP BID [facility] Last Admin: 03/06/16 10:19 Dose: 1 applic Potassium Phos/Sodium Phos (Phos-Nak Packet -) 1 packet GT TID [facility] Last Admin: 03/06/16 06:39 Dose: 1 packet Silver Sulfadiazine (Silvadene -) 1 applic TP BID [facility] Last Admin: 03/06/16 10:19 Dose: 1 applic - Objective Vital Signs: Vital Signs Temperature 98.3 F 03/06/16 06:00 Pulse Rate 81 03/06/16 06:00 Respiratory Rate 22 03/06/16 06:30 Blood Pressure 104/71 03/06/16 06:00 O2 Sat by Pulse Oximetry (%) 99 03/05/16 21:00 Constitutional: Yes: Calm Neck: Yes: Trachea Midline Cardiovascular: Yes: Regular Rate and Rhythm, S1, S2 Respiratory: Yes: CTA Bilaterally, Mechanically Ventilated Gastrointestinal: Yes: Normal Bowel Sounds, Soft, Other (g tube) Edema: Yes Neurological: Yes: Alert, Oriented (mouths words) Labs: CBC, BMP 03/06/16 06:40 03/06/16 06:40 INR, PTT INR 1.31 (0.82-1.09) H 02/20/16 00:10 Problem List - Problems (1) Atelectasis of left lung Assessment/Plan: afebrile in last 24 hrs wbc normal latest cultures show no growth taper steroids Code(s): J98.11 - ATELECTASIS (2) Afib Assessment/Plan: asa on hold bc of broncho will continue to hold rate control heparin subQ Code(s): I48.91 - UNSPECIFIED ATRIAL FIBRILLATION (3) Hyponatremia Assessment/Plan: daily lasix Code(s): E87.1 - HYPO-OSMOLALITY AND HYPONATREMIA (4) Mood disorder Assessment/Plan: haldol Code(s): F39 - UNSPECIFIED MOOD [AFFECTIVE] DISORDER (5) Hypokalemia Assessment/Plan: ok Code(s): E87.6 - HYPOKALEMIA Assessment/Plan dc planning latter this week if aferile to a different [place]
[2016-03-06] MEDS: PANTOPRAZOLE SODIUM 100 ML IVPB SCH (11:09)
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
[2016-03-07] MEDS: ACETAMINOPHEN 650 MG/20.3 ML ORAL SOLUTION (CUPS) GT PRN ×2 (00:09→05:58)
[2016-03-07] MEDS: ALBUTEROL SO4 2.5/IPRATROPIUM 0.5 INH SOL 3 ML VIAL.NEB. NEB SCH ×5 (00:30→23:53)
[2016-03-07] MEDS: INSULIN SLIDING SCALE (NOVOLOG) 1 VIAL SQ SCH ×4 (06:12→23:02)
[2016-03-07] MEDS: NAPH,MB-DB/K PH,MBDB POWDER PACKET GT SCH (07:05)
[2016-03-07 08:07] LABS: CALCIUM 8.7 mg/dL (8.5-10.1); CREATININE 0.4 mg/dL (0.55-1.02); MAGNESIUM 1.9 mg/dL (1.8-2.4); PHOSPHOROUS 3.5 mg/dL (2.5-4.9)
[2016-03-07 08:42] LABS: POTASSIUM 2.7 mmol/L (3.5-5.1)
[2016-03-07] MEDS ORDERED: PT OWN MED DRAWER 7, Y5N ONE (09:49)
[2016-03-07] MEDS: PANTOPRAZOLE SODIUM 100 ML IVPB SCH (09:53)
[2016-03-07] MEDS: AMINO ACIDS/PROTEIN HYDROLYS SUGAR-FREE 30 ML PACKET PO SCH ×2 (09:53→16:51)
[2016-03-07] MEDS: NYSTATIN 100,000 UNIT/GM TOPICAL CREAM 15 GM TUBE TP SCH ×2 (09:54→23:02)
[2016-03-07] MEDS: FUROSEMIDE 40 MG/5 ML UNIT-DOSE CUP PO SCH (09:54)
[2016-03-07] MEDS: LACTOBACILLUS ACIDOPHILUS 1 TABLET PO SCH (09:54)
[2016-03-07] MEDS: HALOPERIDOL 0.5 MG TABLET PO SCH (09:54)
[2016-03-07] MEDS: HEPARIN NA (PORCINE) 5,000 UNITS/ML 1ML VIAL SQ SCH ×2 (09:54→22:50)
[2016-03-07] MEDS: SILVER SULFADIAZINE 1% TOP CREAM 50 GM JAR TP SCH ×2 (09:54→23:03)
[2016-03-07] MEDS ORDERED: methylPREDNISolone NA SUCC 40 MG/1 ML VIAL IVPB SCH (10:00)
[2016-03-07] MEDS ORDERED: POTASSIUM CHLORIDE 40 MEQ/30 ML UNIT DOSE CUP GT ONE (11:00)
[2016-03-07] MEDS: KCL 10 MEQ IVPB 100 ML IVPB SCH ×3 (11:05→13:18)
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
--- NOTE | 2016-03-07 12:45 | PN ---
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, Physician Chief Complaint: no fever off abx hypokalemia - Current Medication List Current Medications: Active Medications Acetaminophen (Tylenol Oral Solution -) 650 mg GT Q6H PRN PRN Reason: FEVER OR PAIN Last Admin: 03/07/16 05:58 Dose: 650 mg Acetaminophen (Ofirmev Injection -) 1,000 mg IVPB Q6H PRN PRN Reason: FEVER Albuterol/Ipratropium (Duoneb -) 1 amp NEB QIDR [facility] Last Admin: 03/07/16 11:15 Dose: 1 amp Amino Acids (Prostat Sugar-Free Packet -) 30 ml PO BID@0800,1730 [facility] Last Admin: 03/07/16 09:53 Dose: 30 ml Bisacodyl (Dulcolax Suppository -) 10 mg RC DAILY PRN PRN Reason: CONSTIPATION Diphenhydramine HCl (Benadryl Injection -) 25 mg IVPUSH HS PRN PRN Reason: INSOMNIA Furosemide (Lasix Oral Solution -) 40 mg PO DAILY [facility] Last Admin: 03/07/16 09:54 Dose: 40 mg Haloperidol (Haldol -) 0.5 mg PO DAILY [facility] Last Admin: 03/07/16 09:54 Dose: 0.5 mg Heparin Sodium (Porcine) (Heparin -) 5,000 unit SQ BID [facility] Last Admin: 03/07/16 09:54 Dose: 5,000 unit Pantoprazole Sodium (Protonix 40mg Ivpb (Pre-Docked)) 100 mls @ 200 mls/hr IVPB DAILY [facility] Last Admin: 03/07/16 09:53 Dose: 200 mls/hr Potassium Chloride (Potassium Chloride 10 Meq Premix Ivpb -) 100 mls @ 100 mls/ hr IVPB Q60M [facility] Stop: 03/07/16 13:59 Last Admin: 03/07/16 12:03 Dose: 100 mls/hr Insulin Aspart (Novolog Vial Sliding Scale -) 1 vial SQ ACHS [facility] PRN Reason: Protocol Last Admin: 03/07/16 11:08 Dose: 2 units Lactobacillus Acidophilus (Bacid -) 1 tab PO DAILY [facility] Last Admin: 03/07/16 09:54 Dose: 1 tab Methylprednisolone Sodium Succinate (Solu-Medrol -) 20 mg IVPB DAILY [facility] Last Admin: 03/07/16 09:55 Dose: 20 mg Nystatin (Mycostatin Cream -) 1 applic TP BID [facility] Last Admin: 03/07/16 09:54 Dose: 1 applic Silver Sulfadiazine (Silvadene -) 1 applic TP BID [facility] Last Admin: 03/07/16 09:54 Dose: 1 applic - Objective Vital Signs: Vital Signs Temperature 98.3 F 03/07/16 10:00 Pulse Rate 62 03/07/16 10:00 Respiratory Rate 19 03/07/16 10:30 Blood Pressure 148/61 03/07/16 10:00 O2 Sat by Pulse Oximetry (%) 99 03/07/16 10:00 Constitutional: Yes: Calm Neck: Yes: Trachea Midline, Other (trach) Cardiovascular: Yes: Regular Rate and Rhythm, S1, S2 Respiratory: Yes: CTA Bilaterally Gastrointestinal: Yes: Normal Bowel Sounds, Soft Edema: Yes Neurological: Yes: Alert, Oriented Labs: CBC, BMP 03/06/16 06:40 03/07/16 06:00 INR, PTT INR 1.31 (0.82-1.09) H 02/20/16 00:10 Problem List - Problems (1) Hypokalemia Assessment/Plan: repleted today check again later today Code(s): E87.6 - HYPOKALEMIA (2) Atelectasis of left lung Assessment/Plan: afebrile in last 24 hrs wbc normal latest cultures show no growth taper steroids Code(s): J98.11 - ATELECTASIS (3) Afib Assessment/Plan: asa on hold bc of broncho will continue to hold rate control heparin subQ Code(s): I48.91 - UNSPECIFIED ATRIAL FIBRILLATION (4) Hyponatremia Assessment/Plan: daily lasix Code(s): E87.1 - HYPO-OSMOLALITY AND HYPONATREMIA (5) Mood disorder Assessment/Plan: haldol Code(s): F39 - UNSPECIFIED MOOD [AFFECTIVE] DISORDER Assessment/Plan looking for snf if potassium is ok then dc tmw to snf family doesnot want adira
--- NOTE | 2016-03-07 12:52 | PN ---
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 (short form) - Note 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: PULMONARY Vented on volume assist control. No fevers recorded. Denies shortness of breath. Wants to eat food. Last Vital Signs Temp Pulse Resp BP Pulse Ox 98.3 F 62 19 148/61 99 03/07/16 10:00 03/07/16 10:00 03/07/16 10:30 03/07/16 10:00 03/07/16 10:00 Gen: vented, awake Heart: RRR Lung: bilateral breath sounds Abd: soft, nontender Ext: + edema CBC, BMP 03/06/16 06:40 03/07/16 06:00 Active Medications Acetaminophen (Tylenol Oral Solution -) 650 mg GT Q6H PRN PRN Reason: FEVER OR PAIN Last Admin: 03/07/16 05:58 Dose: 650 mg Acetaminophen (Ofirmev Injection -) 1,000 mg IVPB Q6H PRN PRN Reason: FEVER Albuterol/Ipratropium (Duoneb -) 1 amp NEB QIDR [facility] Last Admin: 03/07/16 11:15 Dose: 1 amp Amino Acids (Prostat Sugar-Free Packet -) 30 ml PO BID@0800,1730 [facility] Last Admin: 03/07/16 09:53 Dose: 30 ml Bisacodyl (Dulcolax Suppository -) 10 mg RC DAILY PRN PRN Reason: CONSTIPATION Diphenhydramine HCl (Benadryl Injection -) 25 mg IVPUSH HS PRN PRN Reason: INSOMNIA Furosemide (Lasix Oral Solution -) 40 mg PO DAILY [facility] Last Admin: 03/07/16 09:54 Dose: 40 mg Haloperidol (Haldol -) 0.5 mg PO DAILY [facility] Last Admin: 03/07/16 09:54 Dose: 0.5 mg Heparin Sodium (Porcine) (Heparin -) 5,000 unit SQ BID [facility] Last Admin: 03/07/16 09:54 Dose: 5,000 unit Pantoprazole Sodium (Protonix 40mg Ivpb (Pre-Docked)) 100 mls @ 200 mls/hr IVPB DAILY [facility] Last Admin: 03/07/16 09:53 Dose: 200 mls/hr Potassium Chloride (Potassium Chloride 10 Meq Premix Ivpb -) 100 mls @ 100 mls/ hr IVPB Q60M [facility] Stop: 03/07/16 13:59 Last Admin: 03/07/16 12:03 Dose: 100 mls/hr Insulin Aspart (Novolog Vial Sliding Scale -) 1 vial SQ ACHS [facility] PRN Reason: Protocol Last Admin: 03/07/16 11:08 Dose: 2 units Lactobacillus Acidophilus (Bacid -) 1 tab PO DAILY [facility] Last Admin: 03/07/16 09:54 Dose: 1 tab Methylprednisolone Sodium Succinate (Solu-Medrol -) 20 mg IVPB DAILY [facility] Last Admin: 03/07/16 09:55 Dose: 20 mg Nystatin (Mycostatin Cream -) 1 applic TP BID [facility] Last Admin: 03/07/16 09:54 Dose: 1 applic Silver Sulfadiazine (Silvadene -) 1 applic TP BID [facility] Last Admin: 03/07/16 09:54 Dose: 1 applic A/P Chronic Respiratory Failure Pneumonia Left Atelectasis improving COPD Atrial Fibrillation GERD Hyponatremia - replete lytes - monitoring off antibiotics - repeat CXR - taper off medrol - inhaled bronchodilators - enteral feeds - consider trial of PO - DVT/GI prophylaxis
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
[2016-03-08] MEDS ORDERED: cefTRIAXone 1 GM/50 ML BAG (PRE-DOCKED) IVPB ONE (02:15)
[2016-03-08] MEDS: ACETAMINOPHEN 650 MG/20.3 ML ORAL SOLUTION (CUPS) GT PRN ×3 (03:15→17:36)
[2016-03-08] MEDS: ALBUTEROL SO4 2.5/IPRATROPIUM 0.5 INH SOL 3 ML VIAL.NEB. NEB SCH ×3 (06:23→18:23)
[2016-03-08] MEDS: INSULIN SLIDING SCALE (NOVOLOG) 1 VIAL SQ SCH ×4 (06:24→22:57)
[2016-03-08 07:54] LABS: BASO % 0.8 % (0-2.0); EOS % 0.6 % (0-4.5); HEMATOCRIT 28.8 % (32.4-45.2); HEMOGLOBIN 9.5 GM/dL (10.7-15.3); LYMPH % 17.5 % (8-40); MCHC 33.2 g/dl (32.0-36.0); MEAN CELL VOLUME 93.6 fl (80-96); MEAN PLT VOLUME 7.8 fl (7.5-11.1); MONO % 4.3 % (3.8-10.2); NEUT % 76.8 % (42.8-82.8); PLATELET COUNT 159 K/MM3 (134-434); RBC 3.07 M/mm3 (3.60-5.2); RDW 17.2 % (11.6-15.6); WHITE BLOOD COUNT 5.4 K/mm3 (4.0-10.0)
[2016-03-08] MEDS: AMINO ACIDS/PROTEIN HYDROLYS SUGAR-FREE 30 ML PACKET PO SCH ×2 (08:29→18:10)
[2016-03-08 08:31] LABS: CALCIUM 8.7 mg/dL (8.5-10.1); CREATININE 0.4 mg/dL (0.55-1.02); MAGNESIUM 1.8 mg/dL (1.8-2.4); PHOSPHOROUS 2.6 mg/dL (2.5-4.9)
[2016-03-08 08:39] LABS: POTASSIUM 2.9 mmol/L (3.5-5.1)
--- NOTE | 2016-03-08 08:50 | PN ---
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, Physician - Current Medication List Current Medications: Active Medications Acetaminophen (Tylenol Oral Solution -) 650 mg GT Q6H PRN PRN Reason: FEVER OR PAIN Last Admin: 03/08/16 03:15 Dose: 650 mg Acetaminophen (Ofirmev Injection -) 1,000 mg IVPB Q6H PRN PRN Reason: FEVER Albuterol/Ipratropium (Duoneb -) 1 amp NEB QIDR [facility] Last Admin: 03/08/16 06:23 Dose: 1 amp Amino Acids (Prostat Sugar-Free Packet -) 30 ml PO BID@0800,1730 [facility] Last Admin: 03/08/16 08:29 Dose: 30 ml Diphenhydramine HCl (Benadryl Injection -) 25 mg IVPUSH HS PRN PRN Reason: INSOMNIA Furosemide (Lasix Oral Solution -) 40 mg PO DAILY [facility] Last Admin: 03/07/16 09:54 Dose: 40 mg Haloperidol (Haldol -) 0.5 mg PO DAILY [facility] Last Admin: 03/07/16 09:54 Dose: 0.5 mg Heparin Sodium (Porcine) (Heparin -) 5,000 unit SQ BID [facility] Last Admin: 03/07/16 22:50 Dose: 5,000 unit Potassium Chloride (Potassium Chloride 10 Meq Premix Ivpb -) 100 mls @ 100 mls/ hr IVPB Q60M [facility] Stop: 03/08/16 11:44 Insulin Aspart (Novolog Vial Sliding Scale -) 1 vial SQ ACHS [facility] PRN Reason: Protocol Last Admin: 03/08/16 06:24 Dose: 2 units Lactobacillus Acidophilus (Bacid -) 1 tab PO DAILY [facility] Last Admin: 03/07/16 09:54 Dose: 1 tab Loperamide HCl (Imodium Liquid -) 1 mg PO QID PRN PRN Reason: DIARRHEA Nystatin (Mycostatin Cream -) 1 applic TP BID [facility] Last Admin: 03/07/16 23:02 Dose: 1 applic Pantoprazole Sodium (Protonix -) 40 mg PO DAILY [facility] Prednisone (Deltasone -) 20 mg PO DAILY [facility] Silver Sulfadiazine (Silvadene -) 1 applic TP BID [facility] Last Admin: 03/07/16 23:03 Dose: 1 applic - Objective Vital Signs: Vital Signs Temperature 98.9 F 03/08/16 06:00 Pulse Rate 85 03/08/16 06:26 Respiratory Rate 18 03/08/16 06:26 Blood Pressure 155/69 03/08/16 06:00 O2 Sat by Pulse Oximetry (%) 98 03/08/16 06:26 Labs: CBC, BMP 03/08/16 06:20 03/08/16 06:20 INR, PTT INR 1.31 (0.82-1.09) H 02/20/16 00:10 Problem List - Problems (1) Fever Code(s): R50.9 - FEVER, UNSPECIFIED Qualifiers: Fever type: unspecified Qualified Code(s): R50.9 - Fever, unspecified (2) Pneumonia Code(s): J18.9 - PNEUMONIA, UNSPECIFIED ORGANISM (3) Afib Code(s): I48.91 - UNSPECIFIED ATRIAL FIBRILLATION (4) COPD (chronic obstructive pulmonary disease) Code(s): J44.9 - CHRONIC OBSTRUCTIVE PULMONARY DISEASE, UNSPECIFIED Qualifiers : COPD type: unspecified COPD Qualified Code(s): J44.9 - Chronic obstructive pulmonary disease, unspecified (5) Diabetes Code(s): E11.9 - TYPE 2 DIABETES MELLITUS WITHOUT COMPLICATIONS (6) Ventilator dependent Code(s): Z99.11 - DEPENDENCE ON RESPIRATOR [VENTILATOR] STATUS (7) Atelectasis of left lung Code(s): J98.11 - ATELECTASIS Assessment/Plan - Problems (1) Hypokalemia Assessment/Plan: repleted today check again later today Code(s): E87.6 - HYPOKALEMIA (2) Atelectasis of left lung Assessment/Plan: afebrile in last 24 hrs wbc normal latest cultures show no growth taper steroids Code(s): J98.11 - ATELECTASIS (3) Afib Assessment/Plan: asa on hold bc of broncho will continue to hold rate control heparin subQ Code(s): I48.91 - UNSPECIFIED ATRIAL FIBRILLATION (4) Hyponatremia Assessment/Plan: daily lasix Code(s): E87.1 - HYPO-OSMOLALITY AND HYPONATREMIA (5) Mood disorder Assessment/Plan: haldol Code(s): F39 - UNSPECIFIED MOOD [AFFECTIVE] DISORDER (6) Fever Assessment/Plan: ABX PER ID REPEAT LABS AND CULTURES 'F/U CXR Code(s): R50.9 - FEVER, UNSPECIFIED Qualifiers: Fever type: unspecified Qualified Code(s): R50.9 - Fever, unspecified Assessment/Plan looking for snf if potassium is ok then dc tmw to snf family doesnot want adira
[2016-03-08] MEDS ORDERED: PANTOPRAZOLE 40 MG TABLET (FP) PO SCH (10:00)
[2016-03-08] MEDS ORDERED: PT OWN MED DRAWER 7, Y5N ONE (10:15)
[2016-03-08] MEDS: LACTOBACILLUS ACIDOPHILUS 1 TABLET PO SCH (10:28)
[2016-03-08] MEDS: HALOPERIDOL 0.5 MG TABLET PO SCH (10:28)
[2016-03-08] MEDS: KCL 10 MEQ IVPB 100 ML IVPB SCH ×3 (10:28→15:10)
[2016-03-08] MEDS: predniSONE 20 MG TABLET (UD) PO SCH (10:29)
[2016-03-08] MEDS: FUROSEMIDE 40 MG/5 ML UNIT-DOSE CUP PO SCH (10:29)
[2016-03-08] MEDS: HEPARIN NA (PORCINE) 5,000 UNITS/ML 1ML VIAL SQ SCH ×2 (10:30→22:57)
[2016-03-08] MEDS ORDERED: MAGNESIUM SULF 50% (8.12 MEQ/2 ML-1 GM VIAL) IVPB ONE (10:45)
[2016-03-08] MEDS: PANTOPRAZOLE SOD 40 MG SUSPENSION PACKET GT SCH (12:13)
[2016-03-08] MEDS: NYSTATIN 100,000 UNIT/GM TOPICAL CREAM 15 GM TUBE TP SCH ×2 (12:17→22:57)
[2016-03-08] MEDS ORDERED: POTASSIUM CHLORIDE 40 MEQ/30 ML UNIT DOSE CUP PO ONE (12:51)
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
--- NOTE | 2016-03-08 14:58 | PN ---
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, SENIOR HR BUSINESS PARTNER - Note 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: Selected Entries 03/06/16 03/06/16 03/06/16 06:00 15:13 18:00 Temperature 98.3 F 97.9 F 98.4 F 03/07/16 03/07/16 03/07/16 06:00 10:00 14:50 Temperature 97.5 F L 98.3 F 99.8 F H 03/07/16 03/07/16 03/08/16 19:00 20:43 02:00 Temperature 99.0 F 100.1 F H 102.0 F H 03/08/16 03/08/16 06:00 12:05 Temperature 98.9 F 101.7 F H Laboratory Tests 03/06/16 03/08/16 06:40 06:20 WBC 5.2 5.4 Request PMV evaluation orders, once medically appropriate.
[2016-03-08] MEDS ORDERED: MAGNESIUM SULF 50% (8.12 MEQ/2 ML-1 GM VIAL) ONE (14:59)
[2016-03-08] MEDS: SILVER SULFADIAZINE 1% TOP CREAM 50 GM JAR TP SCH ×2 (15:06→22:57)
[2016-03-08] MEDS ORDERED: KCL 10 MEQ IVPB 100 ML IVPB SCH (15:15)
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
[2016-03-08] MEDS: POTASSIUM CHLORIDE 40 MEQ/30 ML UNIT DOSE CUP PO SCH ×2 (17:29→18:51)
[2016-03-09] MEDS: ALBUTEROL SO4 2.5/IPRATROPIUM 0.5 INH SOL 3 ML VIAL.NEB. NEB SCH ×5 (00:06→23:22)
[2016-03-09] MEDS: INSULIN SLIDING SCALE (NOVOLOG) 1 VIAL SQ SCH ×4 (06:13→22:21)
[2016-03-09 07:47] LABS: BASO % 0.1 % (0-2.0); EOS % 1.1 % (0-4.5); HEMATOCRIT 28.9 % (32.4-45.2); HEMOGLOBIN 9.7 GM/dL (10.7-15.3); LYMPH % 25.4 % (8-40); MCH 31.5 pg (25.7-33.7); MCHC 33.5 g/dl (32.0-36.0); MEAN CELL VOLUME 93.9 fl (80-96); MEAN PLT VOLUME 7.5 fl (7.5-11.1); MONO % 5.1 % (3.8-10.2); NEUT % 68.3 % (42.8-82.8); PLATELET COUNT 142 K/MM3 (134-434); RBC 3.08 M/mm3 (3.60-5.2); RDW 17.5 % (11.6-15.6); WHITE BLOOD COUNT 4.6 K/mm3 (4.0-10.0)
[2016-03-09 08:22] LABS: CHLORIDE 104 mmol/L (98-107); POTASSIUM 3.6 mmol/L (3.5-5.1); SODIUM 142 mmol/L (136-145)
[2016-03-09 08:28] LABS: ALBUMIN 2.8 g/dl (3.4-5.0); ALK PHOS 26 U/L (45-117); ANION GAP 9 (8-16); BILIRUBIN,TOTAL 0.4 mg/dL (0.2-1.0); BLOOD UREA NITROGEN 24 mg/dL (7-18); CALCIUM 8.9 mg/dL (8.5-10.1); CO2 29 mmol/L (21-32); CREATININE 0.3 mg/dL (0.55-1.02); GLUCOSE,RANDOM 168 mg/dL (74-106); MAGNESIUM 2.1 mg/dL (1.8-2.4); PHOSPHOROUS 2.3 mg/dL (2.5-4.9); SGOT/AST 11 U/L (15-37); SGPT/ALT 19 U/L (12-78); TOT PROT 5.3 g/dl (6.4-8.2)
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
[2016-03-09] MEDS: AMINO ACIDS/PROTEIN HYDROLYS SUGAR-FREE 30 ML PACKET PO SCH ×2 (08:52→17:41)
--- NOTE | 2016-03-09 12:34 | PN ---
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: Selected Entries 03/06/16 03/06/16 03/06/16 06:00 15:13 18:00 Temperature 98.3 F 97.9 F 98.4 F 03/07/16 03/07/16 03/07/16 06:00 10:00 14:50 Temperature 97.5 F L 98.3 F 99.8 F H 03/07/16 03/07/16 03/08/16 19:00 20:43 02:00 Temperature 99.0 F 100.1 F H 102.0 F H 03/08/16 03/08/16 06:00 12:05 Temperature 98.9 F 101.7 F H Laboratory Tests 03/06/16 03/08/16 06:40 06:20 WBC 5.2 5.4 Selected Entries 03/08/16 03/08/16 03/08/16 02:00 06:00 11:25 Breakfast NPO Lunch Supper Temperature 102.0 F H 98.9 F 03/08/16 03/08/16 03/08/16 12:05 15:02 17:00 Breakfast Lunch NPO Supper NPO Temperature 101.7 F H 102.1 F H 101.3 F H 03/08/16 03/09/16 03/09/16 23:00 02:00 06:00 Breakfast Lunch Supper Temperature 99.4 F 102.0 F H 98.3 F Asking to eat. Reportes being on PO reg diet previous facilities. No documentation of such noted? Request PMV evaluation orders, once medically appropriate, and possibly MBS, unless done previously.
[2016-03-09] MEDS ORDERED: PT OWN MED DRAWER 7, Y5N ONE (12:48)
[2016-03-09] MEDS: LACTOBACILLUS ACIDOPHILUS 1 TABLET PO SCH (12:59)
--- NOTE | 2016-03-09 12:59 | PN ---
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 (short form) - Note 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: PULMONARY Vented on volume assist control. Febrile again. Denies shortness of breath. Wants to eat food. Last Vital Signs Temp Pulse Resp BP Pulse Ox 98.3 F 80 12 126/74 97 03/09/16 06:00 03/09/16 06:00 03/09/16 10:48 03/09/16 06:00 03/08/16 22:30 Gen: vented, awake Heart: RRR Lung: bilateral breath sounds Abd: soft, nontender Ext: + edema CBC, BMP 03/09/16 06:45 03/09/16 06:45 Active Medications Acetaminophen (Tylenol Oral Solution -) 650 mg GT Q6H PRN PRN Reason: FEVER OR PAIN Last Admin: 03/08/16 17:36 Dose: 650 mg Acetaminophen (Ofirmev Injection -) 1,000 mg IVPB Q6H PRN PRN Reason: FEVER Albuterol/Ipratropium (Duoneb -) 1 amp NEB QIDR [facility] Last Admin: 03/09/16 07:16 Dose: 1 amp Amino Acids (Prostat Sugar-Free Packet -) 30 ml PO BID@0800,1730 [facility] Last Admin: 03/09/16 08:52 Dose: Not Given Diphenhydramine HCl (Benadryl Injection -) 25 mg IVPUSH HS PRN PRN Reason: INSOMNIA Haloperidol (Haldol -) 0.5 mg PO DAILY [facility] Last Admin: 03/08/16 10:28 Dose: 0.5 mg Insulin Aspart (Novolog Vial Sliding Scale -) 1 vial SQ ACHS [facility] PRN Reason: Protocol Last Admin: 03/09/16 11:02 Dose: Not Given Lactobacillus Acidophilus (Bacid -) 1 tab PO DAILY [facility] Last Admin: 03/08/16 10:28 Dose: 1 tab Loperamide HCl (Imodium Liquid -) 1 mg PO QID PRN PRN Reason: DIARRHEA Nystatin (Mycostatin Cream -) 1 applic TP BID [facility] Last Admin: 03/08/16 22:57 Dose: 1 applic Pantoprazole Sodium (Protonix Packets For Oral Suspension -) 40 mg GT DAILY [facility] Last Admin: 03/08/16 12:13 Dose: 40 mg Potassium Phos/Sodium Phos (Phos-Nak Packet -) 1 packet GT BID [facility] Prednisone (Deltasone -) 20 mg PO DAILY [facility] Last Admin: 03/08/16 10:29 Dose: 20 mg Silver Sulfadiazine (Silvadene -) 1 applic TP BID [facility] Last Admin: 03/08/16 22:57 Dose: 1 applic A/P Chronic Respiratory Failure Pneumonia Left Atelectasis improving COPD Atrial Fibrillation GERD Hyponatremia - monitoring off antibiotics - repeat CXR - f/u cultures - taper off prednisone - inhaled bronchodilators - enteral feeds - consider trial of PO - DVT/GI prophylaxis
[2016-03-09] MEDS: predniSONE 20 MG TABLET (UD) PO SCH (13:00)
[2016-03-09] MEDS: NAPH,MB-DB/K PH,MBDB POWDER PACKET GT SCH ×2 (13:00→22:22)
[2016-03-09] MEDS: PANTOPRAZOLE SOD 40 MG SUSPENSION PACKET GT SCH (13:00)
[2016-03-09] MEDS: NYSTATIN 100,000 UNIT/GM TOPICAL CREAM 15 GM TUBE TP SCH ×2 (13:01→22:20)
[2016-03-09] MEDS: HEPARIN NA (PORCINE) 5,000 UNITS/ML 1ML VIAL SQ SCH ×2 (14:08→22:21)
[2016-03-09] MEDS: HALOPERIDOL 0.5 MG TABLET PO SCH (14:08)
[2016-03-09] MEDS ORDERED: POTASSIUM CHLORIDE 40 MEQ/30 ML UNIT DOSE CUP GT ONE (15:57)
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
[2016-03-09] MEDS: FUROSEMIDE 20 MG TABLET (FP) GT SCH (16:06)
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
[2016-03-09] MEDS: SILVER SULFADIAZINE 1% TOP CREAM 50 GM JAR TP SCH ×2 (16:52→22:22)
[2016-03-10] MEDS: INSULIN SLIDING SCALE (NOVOLOG) 1 VIAL SQ SCH ×4 (06:33→22:10)
[2016-03-10] MEDS: ALBUTEROL SO4 2.5/IPRATROPIUM 0.5 INH SOL 3 ML VIAL.NEB. NEB SCH ×4 (06:50→23:10)
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
[2016-03-10] MEDS: AMINO ACIDS/PROTEIN HYDROLYS SUGAR-FREE 30 ML PACKET PO SCH ×2 (08:27→17:37)
[2016-03-10] MEDS: LACTOBACILLUS ACIDOPHILUS 1 TABLET PO SCH ×2 (11:01→13:03)
[2016-03-10] MEDS: FUROSEMIDE 20 MG TABLET (FP) GT SCH ×2 (11:02→13:03)
[2016-03-10] MEDS: PANTOPRAZOLE SOD 40 MG SUSPENSION PACKET GT SCH ×2 (11:02→13:03)
[2016-03-10] MEDS: NAPH,MB-DB/K PH,MBDB POWDER PACKET GT SCH ×2 (11:02→13:05)
[2016-03-10] MEDS: predniSONE 20 MG TABLET (UD) PO SCH ×2 (11:02→13:09)
[2016-03-10] MEDS: HALOPERIDOL 0.5 MG TABLET PO SCH ×2 (11:02→13:09)
[2016-03-10] MEDS: HEPARIN NA (PORCINE) 5,000 UNITS/ML 1ML VIAL SQ SCH ×3 (11:02→22:11)
--- NOTE | 2016-03-10 11:42 | PN ---
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 NH orders Puree and honey thick liquid. Pt at [facility] briefly. Tolerance unknown. No documentation on diet at [facility]. CT -Left atelectasis. Request PMV evaluation orders, once medically appropriate and pulmonary status improved, and possibly MBS, unless done previously.Likely after the weekend. Pt aware. Pending Bronchoscopy.
[2016-03-10] MEDS: NYSTATIN 100,000 UNIT/GM TOPICAL CREAM 15 GM TUBE TP SCH ×2 (12:11→22:11)
[2016-03-10] MEDS: SILVER SULFADIAZINE 1% TOP CREAM 50 GM JAR TP SCH ×2 (12:11→22:11)
[2016-03-10] MEDS ORDERED: PT OWN MED DRAWER 7, Y5N ONE ×2 (13:06→19:20)
[2016-03-10] MEDS: LOPERAMIDE HCL 1 MG/5 ML UNIT DOSE CUP PO PRN ×2 (13:09→19:04)
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
[2016-03-10 17:04] LABS: CALCIUM 8.6 mg/dL (8.5-10.1); CREATININE 0.4 mg/dL (0.55-1.02); MAGNESIUM 1.8 mg/dL (1.8-2.4); POTASSIUM 3.6 mmol/L (3.5-5.1)
[2016-03-10] MEDS: ACETAMINOPHEN 650 MG/20.3 ML ORAL SOLUTION (CUPS) GT PRN (19:04)
[2016-03-11] MEDS: INSULIN SLIDING SCALE (NOVOLOG) 1 VIAL SQ SCH ×4 (06:33→22:13)
[2016-03-11] MEDS: LOPERAMIDE HCL 1 MG/5 ML UNIT DOSE CUP PO PRN ×3 (06:34→22:14)
[2016-03-11] MEDS: ALBUTEROL SO4 2.5/IPRATROPIUM 0.5 INH SOL 3 ML VIAL.NEB. NEB SCH ×4 (06:50→23:06)
[2016-03-11] MEDS ORDERED: PT OWN MED DRAWER 7, Y5N ONE (10:36)
[2016-03-11] MEDS: AMINO ACIDS/PROTEIN HYDROLYS SUGAR-FREE 30 ML PACKET PO SCH ×2 (10:46→18:40)
[2016-03-11] MEDS: LACTOBACILLUS ACIDOPHILUS 1 TABLET PO SCH (10:46)
[2016-03-11] MEDS: PANTOPRAZOLE SOD 40 MG SUSPENSION PACKET GT SCH (10:46)
[2016-03-11] MEDS: predniSONE 20 MG TABLET (UD) PO SCH (10:46)
[2016-03-11] MEDS: HALOPERIDOL 0.5 MG TABLET PO SCH (10:47)
[2016-03-11] MEDS: HEPARIN NA (PORCINE) 5,000 UNITS/ML 1ML VIAL SQ SCH ×2 (10:47→22:13)
[2016-03-11] MEDS: FUROSEMIDE 20 MG TABLET (FP) GT SCH (10:52)
[2016-03-11] MEDS: NYSTATIN 100,000 UNIT/GM TOPICAL CREAM 15 GM TUBE TP SCH ×2 (10:52→23:44)
[2016-03-11] MEDS: SILVER SULFADIAZINE 1% TOP CREAM 50 GM JAR TP SCH ×2 (10:53→23:44)
[2016-03-11 11:33] LABS: POTASSIUM 3.1 mmol/L (3.5-5.1)
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
[2016-03-11 12:43] LABS: CALCIUM 8.8 mg/dL (8.5-10.1); CREATININE 0.3 mg/dL (0.55-1.02); MAGNESIUM 1.9 mg/dL (1.8-2.4); PHOSPHOROUS 2.9 mg/dL (2.5-4.9)
[2016-03-11] MEDS ORDERED: POTASSIUM CHLORIDE 40 MEQ/30 ML UNIT DOSE CUP GT SCH (12:45)
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
[2016-03-11] MEDS: POTASSIUM CHLORIDE 40 MEQ/30 ML UNIT DOSE CUP GT SCH (14:06)
[2016-03-11] MEDS ORDERED: POTASSIUM CHLORIDE 40 MEQ/30 ML UNIT DOSE CUP PO ONE (22:00)
[2016-03-12] MEDS: LOPERAMIDE HCL 1 MG/5 ML UNIT DOSE CUP PO PRN (05:43)
[2016-03-12] MEDS: INSULIN SLIDING SCALE (NOVOLOG) 1 VIAL SQ SCH ×4 (06:13→22:20)
[2016-03-12] MEDS: ALBUTEROL SO4 2.5/IPRATROPIUM 0.5 INH SOL 3 ML VIAL.NEB. NEB SCH ×4 (06:50→23:25)
[2016-03-12 08:08] LABS: CALCIUM 8.5 mg/dL (8.5-10.1); CREATININE 0.3 mg/dL (0.55-1.02); PHOSPHOROUS 2.3 mg/dL (2.5-4.9); POTASSIUM 3.8 mmol/L (3.5-5.1)
[2016-03-12] MEDS ORDERED: POTASSIUM PHOSPHATE 15 MM in DEXTROSE 5%-WATER - 250 ML IVPB ONE (09:06)
[2016-03-12] MEDS ORDERED: PT OWN MED DRAWER 7, Y5N ONE (09:42)
[2016-03-12] MEDS: LACTOBACILLUS ACIDOPHILUS 1 TABLET PO SCH (10:01)
[2016-03-12] MEDS: predniSONE 20 MG TABLET (UD) PO SCH (10:01)
[2016-03-12] MEDS: PANTOPRAZOLE SOD 40 MG SUSPENSION PACKET GT SCH (10:01)
[2016-03-12] MEDS: POTASSIUM CHLORIDE 40 MEQ/30 ML UNIT DOSE CUP GT SCH (10:02)
[2016-03-12] MEDS: HEPARIN NA (PORCINE) 5,000 UNITS/ML 1ML VIAL SQ SCH ×2 (10:02→22:21)
[2016-03-12] MEDS: FUROSEMIDE 20 MG TABLET (FP) GT SCH (10:02)
[2016-03-12] MEDS: HALOPERIDOL 0.5 MG TABLET PO SCH (10:02)
[2016-03-12] MEDS: NYSTATIN 100,000 UNIT/GM TOPICAL CREAM 15 GM TUBE TP SCH ×2 (10:06→22:21)
[2016-03-12] MEDS: SILVER SULFADIAZINE 1% TOP CREAM 50 GM JAR TP SCH ×2 (10:06→22:21)
[2016-03-12] MEDS: AMINO ACIDS/PROTEIN HYDROLYS SUGAR-FREE 30 ML PACKET PO SCH ×2 (10:10→17:42)
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
--- NOTE | 2016-03-12 14:55 | PN ---
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, OPERATING ROOM AIDE - Note 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: Discussed with staff Once cxr improved, will need orders for PMV. NH orders Puree and honey thick liquid. Pt at [facility] briefly. Tolerance unknown. No documentation on diet at [facility]. CT -Left atelectasis. Request PMV evaluation orders, once medically appropriate and pulmonary status improved, and possibly MBS, unless done previously.Likely after the weekend. Pt aware. Pending Bronchoscopy. Reviewed with nursing and PMD plans for PMV/MBS once left lung improved. Aspiration risk too great too feed with functional right lung only and not knowing laryngeal/swallowing function.
[2016-03-12] MEDS: ACETAMINOPHEN 650 MG/20.3 ML ORAL SOLUTION (CUPS) GT PRN (17:42)
[2016-03-13] MEDS: INSULIN SLIDING SCALE (NOVOLOG) 1 VIAL SQ SCH ×4 (06:17→22:15)
[2016-03-13] MEDS: ALBUTEROL SO4 2.5/IPRATROPIUM 0.5 INH SOL 3 ML VIAL.NEB. NEB SCH ×3 (06:45→17:46)
[2016-03-13] MEDS: AMINO ACIDS/PROTEIN HYDROLYS SUGAR-FREE 30 ML PACKET PO SCH ×2 (08:22→17:45)
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
[2016-03-13 09:23] LABS: CALCIUM 8.5 mg/dL (8.5-10.1); CREATININE 0.3 mg/dL (0.55-1.02); PHOSPHOROUS 2.8 mg/dL (2.5-4.9); POTASSIUM 3.4 mmol/L (3.5-5.1)
[2016-03-13] MEDS: predniSONE 20 MG TABLET (UD) PO SCH (09:25)
[2016-03-13] MEDS: LACTOBACILLUS ACIDOPHILUS 1 TABLET PO SCH (09:25)
[2016-03-13] MEDS: HEPARIN NA (PORCINE) 5,000 UNITS/ML 1ML VIAL SQ SCH ×2 (09:26→22:14)
[2016-03-13] MEDS: FUROSEMIDE 20 MG TABLET (FP) GT SCH (09:26)
[2016-03-13] MEDS: PANTOPRAZOLE SOD 40 MG SUSPENSION PACKET GT SCH (09:26)
[2016-03-13] MEDS: HALOPERIDOL 0.5 MG TABLET PO SCH (09:26)
[2016-03-13] MEDS: POTASSIUM CHLORIDE 40 MEQ/30 ML UNIT DOSE CUP GT SCH (09:26)
[2016-03-13] MEDS: NYSTATIN 100,000 UNIT/GM TOPICAL CREAM 15 GM TUBE TP SCH ×2 (11:09→22:14)
[2016-03-13] MEDS: SILVER SULFADIAZINE 1% TOP CREAM 50 GM JAR TP SCH ×2 (11:09→22:15)
[2016-03-13] MEDS ORDERED: ACETYLCYSTEINE 20% 200MG/ML 4 ML VIAL *FOR ORAL / INH USE ONLY NEB ONE ×2 (11:15→13:05)
--- NOTE | 2016-03-13 11:38 | PN ---
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 (short form) - Note 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: PULMONARY Low grade temps overnight. Denies shortness of breath. Last Vital Signs Temp Pulse Resp BP Pulse Ox 100 F H 75 16 129/74 98 03/13/16 07:45 03/13/16 07:45 03/13/16 07:45 03/13/16 07:45 03/12/16 10:48 Gen: vented, awake Heart: RRR Lung: decreased breath sounds left Abd: soft, nontender Ext: + edema CBC, BMP 03/09/16 06:45 03/13/16 07:43 Active Medications Acetaminophen (Tylenol Oral Solution -) 650 mg GT Q6H PRN PRN Reason: FEVER OR PAIN Last Admin: 03/12/16 17:42 Dose: 650 mg Acetaminophen (Ofirmev Injection -) 1,000 mg IVPB Q6H PRN PRN Reason: FEVER Albuterol/Ipratropium (Duoneb -) 1 amp NEB QIDR [facility] Last Admin: 03/13/16 06:45 Dose: 1 amp Amino Acids (Prostat Sugar-Free Packet -) 30 ml PO BID@0800,1730 [facility] Last Admin: 03/13/16 08:22 Dose: Not Given Diphenhydramine HCl (Benadryl Injection -) 25 mg IVPUSH HS PRN PRN Reason: INSOMNIA Furosemide (Lasix -) 20 mg GT DAILY [facility] Last Admin: 03/13/16 09:26 Dose: Not Given Haloperidol (Haldol -) 0.5 mg PO DAILY [facility] Last Admin: 03/13/16 09:26 Dose: Not Given Heparin Sodium (Porcine) (Heparin -) 5,000 unit SQ BID [facility] Last Admin: 03/13/16 09:26 Dose: Not Given Insulin Aspart (Novolog Vial Sliding Scale -) 1 vial SQ ACHS [facility] PRN Reason: Protocol Last Admin: 03/13/16 06:17 Dose: Not Given Lactobacillus Acidophilus (Bacid -) 1 tab PO DAILY [facility] Last Admin: 03/13/16 09:25 Dose: Not Given Loperamide HCl (Imodium Liquid -) 1 mg PO QID PRN PRN Reason: DIARRHEA Last Admin: 03/12/16 05:43 Dose: 1 mg Nystatin (Mycostatin Cream -) 1 applic TP BID [facility] Last Admin: 03/13/16 11:09 Dose: 1 applic Pantoprazole Sodium (Protonix Packets For Oral Suspension -) 40 mg GT DAILY [facility] Last Admin: 03/13/16 09:26 Dose: Not Given Potassium Chloride (Kcl Oral Solution -) 60 meq GT DAILY [facility] Last Admin: 03/13/16 09:26 Dose: Not Given Prednisone (Deltasone -) 20 mg PO DAILY [facility] Last Admin: 03/13/16 09:25 Dose: Not Given Silver Sulfadiazine (Silvadene -) 1 applic TP BID [facility] Last Admin: 03/13/16 11:09 Dose: 1 applic A/P Chronic Respiratory Failure Pneumonia Left Atelectasis COPD Atrial Fibrillation GERD Hyponatremia - will proceed with bronchoscopy - will send cultures - repeat CXR post bronch - taper off prednisone - inhaled bronchodilators - enteral feeds - consider trial of PO - DVT/GI prophylaxis
[2016-03-13] MEDS ORDERED: ACETYLCYSTEINE 20% 200MG/ML 4 ML VIAL *FOR ORAL / INH USE ONLY NR ONE (11:51)
[2016-03-13] MEDS ORDERED: ONDANSETRON 4 MG/2 ML VIAL IVPUSH PRN ×2 (12:23→13:05)
--- NOTE | 2016-03-13 12:25 | PROC ---
Procedure Note Procedure: BRONCHOSCOPY NOTE After discussing the risks and benefits of the procedure, informed consent was obtained. Pt given sedation by anesthesia. Inspire video bronchoscope was passed via the ETT and the airways were examined down to the subsegmental level. There were no endobronchial lesions noted on either side. The left main stem bronchus was occluded by thick yellow mucous. Bronchus was lavaged until secretions cleared. Anesthesia performed recruitment maneuvers x 2. Good re-expansion of left lung seen on fluoroscopy. Mucomyst total of 1000mg instilled between the LLL bronchi. Bronchoscope then withdrawn and procedure terminated. Pre-op Dx: left atelectasis Post-op Dx: left atelectasis from mucous plugging Plan: - repeat CXR - f/u BAL cultures and cytology Scot Courtney MD
[2016-03-13] MEDS ORDERED: LACTATED RINGERS SOLUTION 1,000 ML IV SCH ×2 (12:30→13:05)
--- NOTE | 2016-03-13 12:45 | PN ---
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 (short form) - Note 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: PULMONARY Leave on PEEP 10 overnight, will repeat CXR in AM. If left lung remains open, decrease PEEP to 5. Scot Courtney MD
[2016-03-13] MEDS ORDERED: ACETAMINOPHEN 1000 MG/100 ML VIAL (NON FORMULARY) IVPB PRN (13:05)
[2016-03-13] MEDS ORDERED: POTASSIUM CHLORIDE 40 MEQ/30 ML UNIT DOSE CUP GT ONE (16:00)
[2016-03-14] MEDS: ALBUTEROL SO4 2.5/IPRATROPIUM 0.5 INH SOL 3 ML VIAL.NEB. NEB SCH ×5 (06:15→23:29)
[2016-03-14] MEDS: INSULIN SLIDING SCALE (NOVOLOG) 1 VIAL SQ SCH ×4 (06:36→21:54)
[2016-03-14] MEDS ORDERED: INSULIN (NOVOLOG) ASPART 100 UNITS/ML 10ML VIAL ONE (06:55)
[2016-03-14 07:54] LABS: BASO % 0.6 % (0-2.0); EOS % 4.5 % (0-4.5); HEMATOCRIT 29.8 % (32.4-45.2); HEMOGLOBIN 10.1 GM/dL (10.7-15.3); LYMPH % 17.4 % (8-40); MCH 32.1 pg (25.7-33.7); MCHC 33.8 g/dl (32.0-36.0); MEAN CELL VOLUME 94.9 fl (80-96); MEAN PLT VOLUME 8.3 fl (7.5-11.1); NEUT % 72.5 % (42.8-82.8); PLATELET COUNT 157 K/MM3 (134-434); RBC 3.14 M/mm3 (3.60-5.2); RDW 17.7 % (11.6-15.6); WHITE BLOOD COUNT 7.3 K/mm3 (4.0-10.0)
--- NOTE | 2016-03-14 08:41 | PN ---
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 (short form) - Note 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: 70F POD1 s/p bronchoscopy BAL under sedation. Pt is doing well, reports no anesthetic complications, reports no pain, AVSS.
--- NOTE | 2016-03-14 09:01 | PN ---
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, Physician - Current Medication List Current Medications: Active Medications Acetaminophen (Tylenol Oral Solution -) 650 mg GT Q6H PRN PRN Reason: FEVER OR PAIN Albuterol/Ipratropium (Duoneb -) 1 amp NEB QIDR [facility] Last Admin: 03/14/16 06:15 Dose: 1 amp Amino Acids (Prostat Sugar-Free Packet -) 30 ml PO BID@0800,1730 [facility] Last Admin: 03/13/16 17:45 Dose: 30 ml Diphenhydramine HCl (Benadryl Injection -) 25 mg IVPUSH HS PRN PRN Reason: INSOMNIA Fentanyl (Sublimaze Injection -) 25 mcg IVPUSH [id number] PRN PRN Reason: PAIN Stop: 03/16/16 12:24 Furosemide (Lasix -) 20 mg GT DAILY [facility] Haloperidol (Haldol -) 0.5 mg PO DAILY [facility] Heparin Sodium (Porcine) (Heparin -) 5,000 unit SQ BID [facility] Last Admin: 03/13/16 22:14 Dose: 5,000 unit Insulin Aspart (Novolog Vial Sliding Scale -) 1 vial SQ ACHS [facility] PRN Reason: Protocol Last Admin: 03/14/16 06:36 Dose: 2 units Lactobacillus Acidophilus (Bacid -) 1 tab PO DAILY [facility] Loperamide HCl (Imodium Liquid -) 1 mg PO QID PRN PRN Reason: DIARRHEA Nystatin (Mycostatin Cream -) 1 applic TP BID [facility] Last Admin: 03/13/16 22:14 Dose: 1 applic Pantoprazole Sodium (Protonix Packets For Oral Suspension -) 40 mg GT DAILY [facility] Prednisone (Deltasone -) 20 mg PO DAILY [facility] Silver Sulfadiazine (Silvadene -) 1 applic TP BID [facility] Last Admin: 03/13/16 22:15 Dose: 1 applic - Objective Vital Signs: Vital Signs Temperature 98.9 F 03/14/16 06:00 Pulse Rate 70 03/14/16 06:00 Respiratory Rate 18 03/14/16 06:35 Blood Pressure 130/78 03/14/16 06:00 O2 Sat by Pulse Oximetry (%) 99 03/13/16 14:45 Labs: CBC, BMP 03/14/16 06:25 INR, PTT INR 1.31 (0.82-1.09) H 02/20/16 00:10 Problem List - Problems (1) Fever Code(s): R50.9 - FEVER, UNSPECIFIED Qualifiers: Fever type: unspecified Qualified Code(s): R50.9 - Fever, unspecified (2) Pneumonia Code(s): J18.9 - PNEUMONIA, UNSPECIFIED ORGANISM (3) Afib Code(s): I48.91 - UNSPECIFIED ATRIAL FIBRILLATION (4) COPD (chronic obstructive pulmonary disease) Code(s): J44.9 - CHRONIC OBSTRUCTIVE PULMONARY DISEASE, UNSPECIFIED Qualifiers : COPD type: unspecified COPD Qualified Code(s): J44.9 - Chronic obstructive pulmonary disease, unspecified (5) Diabetes Code(s): E11.9 - TYPE 2 DIABETES MELLITUS WITHOUT COMPLICATIONS (6) Ventilator dependent Code(s): Z99.11 - DEPENDENCE ON RESPIRATOR [VENTILATOR] STATUS (7) Atelectasis of left lung Code(s): J98.11 - ATELECTASIS
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
[2016-03-14] MEDS ORDERED: POTASSIUM CHLORIDE 40 MEQ/30 ML UNIT DOSE CUP GT SCH (10:00)
[2016-03-14 10:56] LABS: POTASSIUM 4.2 mmol/L (3.5-5.1)
[2016-03-14 11:18] LABS: CALCIUM 8.6 mg/dL (8.5-10.1); CREATININE 0.2 mg/dL (0.55-1.02)
--- NOTE | 2016-03-14 11:39 | PN ---
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 (short form) - Note 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: Awake and alert on AC mode of vent. 40% FiO2. PEEP 10. S/P bronch yesterday -> left mainstem mucous plugging. CXR : improved with only mild LLL atelectasis Intake & Output 03/11/16 03/12/16 03/13/16 03/14/16 23:59 23:59 23:59 23:59 Intake Total 860 2250 1750 1060 Balance 860 2250 1750 1060 Last Vital Signs Temp Pulse Resp BP Pulse Ox 98.9 F 75 19 130/78 99 03/14/16 06:00 03/14/16 10:18 03/14/16 10:18 03/14/16 06:00 03/14/16 10:18 Active Medications Acetaminophen (Tylenol Oral Solution -) 650 mg GT Q6H PRN PRN Reason: FEVER OR PAIN Albuterol/Ipratropium (Duoneb -) 1 amp NEB QIDR [facility] Last Admin: 03/14/16 06:15 Dose: 1 amp Amino Acids (Prostat Sugar-Free Packet -) 30 ml PO BID@0800,1730 [facility] Last Admin: 03/13/16 17:45 Dose: 30 ml Diphenhydramine HCl (Benadryl Injection -) 25 mg IVPUSH HS PRN PRN Reason: INSOMNIA Fentanyl (Sublimaze Injection -) 25 mcg IVPUSH [id number] PRN PRN Reason: PAIN Stop: 03/16/16 12:24 Furosemide (Lasix -) 20 mg GT DAILY [facility] Haloperidol (Haldol -) 0.5 mg PO DAILY [facility] Heparin Sodium (Porcine) (Heparin -) 5,000 unit SQ BID [facility] Last Admin: 03/13/16 22:14 Dose: 5,000 unit Insulin Aspart (Novolog Vial Sliding Scale -) 1 vial SQ ACHS [facility] PRN Reason: Protocol Last Admin: 03/14/16 06:36 Dose: 2 units Lactobacillus Acidophilus (Bacid -) 1 tab PO DAILY [facility] Loperamide HCl (Imodium Liquid -) 1 mg PO QID PRN PRN Reason: DIARRHEA Nystatin (Mycostatin Cream -) 1 applic TP BID [facility] Last Admin: 03/13/16 22:14 Dose: 1 applic Pantoprazole Sodium (Protonix Packets For Oral Suspension -) 40 mg GT DAILY [facility] Prednisone (Deltasone -) 20 mg PO DAILY [facility] Silver Sulfadiazine (Silvadene -) 1 applic TP BID [facility] Last Admin: 03/13/16 22:15 Dose: 1 applic Gen: vented, awake Heart: RRR Lung: decreased breath sounds at the bases Abd: soft, nontender Ext: + edema Laboratory Results - last 24 hr 03/13/16 03/13/16 03/14/16 16:52 21:31 06:18 WBC RBC Hgb Hct MCV MCHC RDW Plt Count MPV Neutrophils % Lymphocytes % Monocytes % Eosinophils % Basophils % Sodium Potassium Chloride Carbon Dioxide Anion Gap BUN Creatinine POC Glucometer 146 145 197 Random Glucose Calcium Phosphorus Magnesium 03/14/16 03/14/16 03/14/16 06:25 06:25 09:50 WBC 7.3 D RBC 3.14 L Hgb 10.1 L Hct 29.8 L MCV 94.9 MCHC 33.8 RDW 17.7 H Plt Count 157 MPV 8.3 D Neutrophils % 72.5 Lymphocytes % 17.4 D Monocytes % 5.0 Eosinophils % 4.5 D Basophils % 0.6 D Sodium Cancelled 140 Potassium Cancelled 4.2 D Chloride Cancelled 105 Carbon Dioxide Cancelled 27 Anion Gap Cancelled 8 BUN Cancelled 20 H Creatinine Cancelled 0.2 L D POC Glucometer Random Glucose Cancelled 123 H D Calcium Cancelled 8.6 Phosphorus Cancelled Magnesium Cancelled A/P Chronic Respiratory Failure Pneumonia COPD Atrial Fibrillation GERD - Decrease PEEP to 7 - Off Antibiotics - inhaled bronchodilators - DVT/GI prophylaxis - No Pulmonary contraindication for D/C Dr Up
[2016-03-14] MEDS: AMINO ACIDS/PROTEIN HYDROLYS SUGAR-FREE 30 ML PACKET PO SCH ×2 (11:40→17:01)
[2016-03-14] MEDS: LACTOBACILLUS ACIDOPHILUS 1 TABLET PO SCH (11:42)
[2016-03-14] MEDS: FUROSEMIDE 20 MG TABLET (FP) GT SCH (11:42)
[2016-03-14] MEDS: predniSONE 20 MG TABLET (UD) PO SCH (11:43)
[2016-03-14] MEDS: PANTOPRAZOLE SOD 40 MG SUSPENSION PACKET GT SCH (11:43)
[2016-03-14] MEDS: HALOPERIDOL 0.5 MG TABLET PO SCH (11:43)
[2016-03-14] MEDS: HEPARIN NA (PORCINE) 5,000 UNITS/ML 1ML VIAL SQ SCH ×2 (11:43→21:54)
[2016-03-14] MEDS: SILVER SULFADIAZINE 1% TOP CREAM 50 GM JAR TP SCH ×2 (11:45→21:55)
[2016-03-14] MEDS: NYSTATIN 100,000 UNIT/GM TOPICAL CREAM 15 GM TUBE TP SCH ×2 (11:45→21:54)
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
--- NOTE | 2016-03-14 13:48 | PN ---
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, Physician History of Present Illness: Awake, alert No acute distress No diarrhea Temps down - Current Medication List Current Medications: Active Medications Acetaminophen (Tylenol Oral Solution -) 650 mg GT Q6H PRN PRN Reason: FEVER OR PAIN Albuterol/Ipratropium (Duoneb -) 1 amp NEB QIDR [facility] Last Admin: 03/14/16 11:59 Dose: 1 amp Amino Acids (Prostat Sugar-Free Packet -) 30 ml PO BID@0800,1730 [facility] Last Admin: 03/14/16 11:40 Dose: 30 ml Diphenhydramine HCl (Benadryl Injection -) 25 mg IVPUSH HS PRN PRN Reason: INSOMNIA Fentanyl (Sublimaze Injection -) 25 mcg IVPUSH [id number] PRN PRN Reason: PAIN Stop: 03/16/16 12:24 Furosemide (Lasix -) 20 mg GT DAILY [facility] Last Admin: 03/14/16 11:42 Dose: 20 mg Haloperidol (Haldol -) 0.5 mg PO DAILY [facility] Last Admin: 03/14/16 11:43 Dose: 0.5 mg Heparin Sodium (Porcine) (Heparin -) 5,000 unit SQ BID [facility] Last Admin: 03/14/16 11:43 Dose: 5,000 unit Insulin Aspart (Novolog Vial Sliding Scale -) 1 vial SQ ACHS [facility] PRN Reason: Protocol Last Admin: 03/14/16 11:58 Dose: Not Given Lactobacillus Acidophilus (Bacid -) 1 tab PO DAILY [facility] Last Admin: 03/14/16 11:42 Dose: 1 tab Loperamide HCl (Imodium Liquid -) 1 mg PO QID PRN PRN Reason: DIARRHEA Nystatin (Mycostatin Cream -) 1 applic TP BID [facility] Last Admin: 03/14/16 11:45 Dose: 1 applic Pantoprazole Sodium (Protonix Packets For Oral Suspension -) 40 mg GT DAILY [facility] Last Admin: 03/14/16 11:43 Dose: 40 mg Prednisone (Deltasone -) 20 mg PO DAILY [facility] Last Admin: 03/14/16 11:43 Dose: 20 mg Silver Sulfadiazine (Silvadene -) 1 applic TP BID [facility] Last Admin: 03/14/16 11:45 Dose: 1 applic - Objective Vital Signs: Vital Signs Temperature 98.9 F 03/14/16 06:00 Pulse Rate 75 03/14/16 10:18 Respiratory Rate 19 03/14/16 10:18 Blood Pressure 130/78 03/14/16 06:00 O2 Sat by Pulse Oximetry (%) 99 03/14/16 10:18 Constitutional: Yes: No Distress Eyes: Yes: Conjunctiva Clear Cardiovascular: Yes: Regular Rate and Rhythm, S1, S2 Respiratory: Yes: Diminished Gastrointestinal: Yes: Normal Bowel Sounds, Soft. No: Tenderness Edema: Yes Labs: CBC, BMP 03/14/16 06:25 03/14/16 09:50 INR, PTT INR 1.31 (0.82-1.09) H 02/20/16 00:10 Assessment/Plan FUO possibly secondary to atelectasis- temps improved after bronch Diarrhea- resolved Stool studies negative Respiratory failure Observe off antibiotics
--- NOTE | 2016-03-14 14:33 | PATH ---
Cytology Non-Gynecological Report Patient Name: KRSYTIAN WICK [facility]. Rec. #: [id number] /Age/Gender: 1945 (Age: 70) / F Account: [id number] Location: [address] [place] [address] Taken: 03/13/2016 Received: 03/13/2016 Reported: 03/14/2016 Physicians: Scot Courtney M.D. Specimen(s) Received BRONCHIAL WASHINGS LEFT LOWER LOBE Clinical History Atelectasis Final Diagnosis LUNG, LEFT LOWER LOBE, BRONCHIAL WASHINGS: SATISFACTORY FOR EVALUATION. NO MALIGNANT CELLS IDENTIFIED. REACTIVE BRONCHIAL CELLS, MACROPHAGES AND ACUTE INFLAMMATION. Comment: Special stains for acid-fast and fungal microorganisms are pending; results will be reported in an addendum. Electronically Signed Modesto Nelson M.D. Addendum Reported: 03/15/2016 Addendum Diagnosis No acid-fast bacilli are identified with AFB stain. No fungal organisms are identified with GMS stain. Comment: Correlations with microbiology studies are suggested. Modesto Nelson M.D. Gross Description Received is 20 cc of bloody fluid fresh. One cytofunnel slide and one cell block are made. __
--- NOTE | 2016-03-14 16:18 | CONSULT ---
[place] Valve Eval - Assessment Prior to PMV Placement Patient and/or family educated re PMV: Yes Mental Status: Awake, Alert, Attempting to Communicate O2 Sat by Pulse Oximetry (%): 99 Secretions: Small Amount Patient on Ventilator: Yes Patient on Trach Collar: No Suctioned: Yes Inner Cannula Removed: No Cuff Status: Inflated [place] Valve in Place - Speech Characteristics Able to Phonate with PMV in place: Yes Voice Loudness: Mildly Soft/Quiet Voice Pitch: Normal Voice Phonatory-based Quality: Normal Speech Pattern: Normal Speech Clarity: < 100% Nasal Resonance: Normal Articulation: Precise - Assessment with PMV in Place Respiratory Rate: 25 (excellent) O2 Sat by Pulse Oximetry (%): 100 Change in Mental Status with PMV in Place: No Able to Manage Secretions: No Length of time with PMV in place: 15. Left on PMV with RTmonitoring/Oxymeter alarm - Recommendations Recommendations: PMV as tolerated, Remove PMV while sleeping, Monitor Pulse Ox PMV on, Supervision while PMV on
--- NOTE | 2016-03-14 16:21 | PN ---
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, [facility] - Note 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: Excellent performance on pmv. Request mbs orders for tomorrow to initiate po diet with safety.
[2016-03-14] MEDS: ACETAMINOPHEN 650 MG/20.3 ML ORAL SOLUTION (CUPS) GT PRN (17:01)
[2016-03-14] MEDS: OSELTAMIVIR PHOSPHATE 75 MG CAPSULE PO SCH (17:12)
[2016-03-15] MEDS: ACETAMINOPHEN 650 MG/20.3 ML ORAL SOLUTION (CUPS) GT PRN (05:18)
[2016-03-15] MEDS: ALBUTEROL SO4 2.5/IPRATROPIUM 0.5 INH SOL 3 ML VIAL.NEB. NEB SCH ×3 (06:42→17:59)
[2016-03-15] MEDS: INSULIN SLIDING SCALE (NOVOLOG) 1 VIAL SQ SCH ×3 (07:36→17:51)
[2016-03-15 08:14] LABS: BASO % 0.3 % (0-2.0); EOS % 2.2 % (0-4.5); HEMATOCRIT 27.6 % (32.4-45.2); HEMOGLOBIN 9.4 GM/dL (10.7-15.3); LYMPH % 22.3 % (8-40); MCH 31.7 pg (25.7-33.7); MCHC 33.9 g/dl (32.0-36.0); MEAN CELL VOLUME 93.4 fl (80-96); MEAN PLT VOLUME 7.8 fl (7.5-11.1); MONO % 6.5 % (3.8-10.2); NEUT % 68.7 % (42.8-82.8); PLATELET COUNT 140 K/MM3 (134-434); RBC 2.96 M/mm3 (3.60-5.2); RDW 16.8 % (11.6-15.6); WHITE BLOOD COUNT 5.4 K/mm3 (4.0-10.0)
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
[2016-03-15] MEDS ORDERED: PT OWN MED DRAWER 7, Y5N ONE (08:55)
[2016-03-15] MEDS: AMINO ACIDS/PROTEIN HYDROLYS SUGAR-FREE 30 ML PACKET PO SCH ×2 (08:56→17:43)
[2016-03-15 08:57] LABS: CALCIUM 8.2 mg/dL (8.5-10.1); CREATININE 0.3 mg/dL (0.55-1.02); POTASSIUM 3.5 mmol/L (3.5-5.1)
[2016-03-15] MEDS: OSELTAMIVIR PHOSPHATE 75 MG CAPSULE PO SCH (09:10)
[2016-03-15] MEDS: PANTOPRAZOLE SOD 40 MG SUSPENSION PACKET GT SCH (09:10)
[2016-03-15] MEDS: HEPARIN NA (PORCINE) 5,000 UNITS/ML 1ML VIAL SQ SCH ×2 (09:10→23:01)
[2016-03-15] MEDS: LACTOBACILLUS ACIDOPHILUS 1 TABLET PO SCH (09:10)
[2016-03-15] MEDS: FUROSEMIDE 20 MG TABLET (FP) GT SCH (09:10)
[2016-03-15] MEDS: predniSONE 20 MG TABLET (UD) PO SCH (09:10)
[2016-03-15] MEDS: SILVER SULFADIAZINE 1% TOP CREAM 50 GM JAR TP SCH ×2 (09:11→23:03)
[2016-03-15] MEDS: HALOPERIDOL 0.5 MG TABLET PO SCH (09:11)
[2016-03-15] MEDS: NYSTATIN 100,000 UNIT/GM TOPICAL CREAM 15 GM TUBE TP SCH ×2 (09:11→23:02)
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
[2016-03-16] MEDS: ACETAMINOPHEN 650 MG/20.3 ML ORAL SOLUTION (CUPS) GT PRN (00:03)
[2016-03-16] MEDS: INSULIN SLIDING SCALE (NOVOLOG) 1 VIAL SQ SCH ×5 (00:03→21:58)
[2016-03-16] MEDS: ALBUTEROL SO4 2.5/IPRATROPIUM 0.5 INH SOL 3 ML VIAL.NEB. NEB SCH ×5 (00:24→23:07)
[2016-03-16 08:51] LABS: POTASSIUM 3.1 mmol/L (3.5-5.1)
[2016-03-16 09:04] LABS: CALCIUM 8.1 mg/dL (8.5-10.1); CREATININE 0.3 mg/dL (0.55-1.02)
[2016-03-16] MEDS ORDERED: PT OWN MED DRAWER 7, Y5N ONE (09:22)
[2016-03-16] MEDS: AMINO ACIDS/PROTEIN HYDROLYS SUGAR-FREE 30 ML PACKET PO SCH ×2 (09:37→17:38)
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
[2016-03-16] MEDS ORDERED: POTASSIUM CHLORIDE 40 MEQ/30 ML UNIT DOSE CUP PO ONE (10:45)
[2016-03-16] MEDS: PANTOPRAZOLE SOD 40 MG SUSPENSION PACKET GT SCH (10:55)
--- NOTE | 2016-03-16 10:55 | PN ---
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, APPOINTMENT SETTER - Note 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: Selected Entries 03/12/16 03/12/16 03/12/16 02:00 06:00 10:00 Supper Temperature 99.3 F 97.8 F 99.3 F 03/12/16 03/12/16 03/12/16 15:01 15:30 18:00 Supper Temperature 99.7 F H 100.3 F H 101.3 F H 03/12/16 03/12/16 03/13/16 20:10 23:00 07:45 Supper Temperature 101.7 F H 100.8 F H 100 F H 03/13/16 03/13/16 03/13/16 10:00 12:17 14:00 Supper Temperature 97.2 F L 98.2 F 97.6 F 03/13/16 03/14/16 03/14/16 18:10 06:00 09:00 Supper Temperature 97.7 F 98.9 F 99 F 03/14/16 03/14/16 03/15/16 14:59 18:00 02:00 Supper Temperature 100 F H 100.3 F H 100.9 F H 03/15/16 03/15/16 03/15/16 06:00 10:00 15:45 Supper Temperature 100.0 F H 99.7 F H 100.8 F H 03/15/16 03/15/16 03/16/16 18:10 22:00 06:00 Supper 50% Temperature 99.1 F 101.1 F H 98.3 F PMV placed with RT. Voice is strong when she inhales before speaking and coordinates respiration with phonation and articulation. Pt would benefit with a call anne with head switch at next facility. REC: order for PMV as tolerated throughout the day and especially while being fed. HOB elevated during and after meals x 1 hour.
[2016-03-16] MEDS: FUROSEMIDE 20 MG TABLET (FP) GT SCH (10:57)
[2016-03-16] MEDS: LACTOBACILLUS ACIDOPHILUS 1 TABLET PO SCH (10:58)
[2016-03-16] MEDS: HEPARIN NA (PORCINE) 5,000 UNITS/ML 1ML VIAL SQ SCH ×2 (10:58→23:26)
[2016-03-16] MEDS: predniSONE 20 MG TABLET (UD) PO SCH (11:00)
[2016-03-16] MEDS: HALOPERIDOL 0.5 MG TABLET PO SCH (11:48)
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
[2016-03-16] MEDS: predniSONE 10 MG TABLET (UD) PO SCH (14:37)
[2016-03-16] MEDS: NYSTATIN 100,000 UNIT/GM TOPICAL CREAM 15 GM TUBE TP SCH ×2 (15:45→23:26)
[2016-03-16] MEDS: SILVER SULFADIAZINE 1% TOP CREAM 50 GM JAR TP SCH ×2 (15:45→23:27)
[2016-03-16] MEDS ORDERED: INSULIN (NOVOLOG) ASPART 100 UNITS/ML 10ML VIAL ONE (17:39)
[2016-03-16] MEDS: LOPERAMIDE HCL 1 MG/5 ML UNIT DOSE CUP PO PRN (20:55)
[2016-03-17] MEDS: ACETAMINOPHEN 650 MG/20.3 ML ORAL SOLUTION (CUPS) GT PRN (02:58)
[2016-03-17] MEDS: LOPERAMIDE HCL 1 MG/5 ML UNIT DOSE CUP PO PRN (05:58)
[2016-03-17] MEDS: INSULIN SLIDING SCALE (NOVOLOG) 1 VIAL SQ SCH ×4 (06:02→22:50)
[2016-03-17] MEDS: ALBUTEROL SO4 2.5/IPRATROPIUM 0.5 INH SOL 3 ML VIAL.NEB. NEB SCH ×4 (06:50→23:45)
[2016-03-17] MEDS: LACTOBACILLUS ACIDOPHILUS 1 TABLET PO SCH (09:33)
[2016-03-17] MEDS: AMINO ACIDS/PROTEIN HYDROLYS SUGAR-FREE 30 ML PACKET PO SCH ×2 (09:33→18:08)
[2016-03-17] MEDS: HALOPERIDOL 0.5 MG TABLET PO SCH (09:33)
[2016-03-17] MEDS: FUROSEMIDE 20 MG TABLET (FP) GT SCH (09:33)
[2016-03-17] MEDS: HEPARIN NA (PORCINE) 5,000 UNITS/ML 1ML VIAL SQ SCH ×2 (09:33→22:26)
[2016-03-17] MEDS: NYSTATIN 100,000 UNIT/GM TOPICAL CREAM 15 GM TUBE TP SCH ×2 (09:33→22:26)
[2016-03-17] MEDS: predniSONE 10 MG TABLET (UD) PO SCH (09:33)
[2016-03-17] MEDS: SILVER SULFADIAZINE 1% TOP CREAM 50 GM JAR TP SCH ×2 (09:34→22:26)
[2016-03-17] MEDS: PANTOPRAZOLE SOD 40 MG SUSPENSION PACKET GT SCH (09:37)
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
--- NOTE | 2016-03-17 12:02 | PN ---
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, PAEDODONTIST - Note 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: Selected Entries 03/15/16 03/16/16 03/16/16 18:10 06:00 09:46 Breakfast 50% Lunch Supper 50% Temperature 98.3 F 03/16/16 03/16/16 03/16/16 10:52 14:35 21:24 Breakfast Lunch 50% Supper Temperature 98.6 F 98.5 F 98.6 F 03/17/16 03/17/16 03/17/16 02:00 06:00 10:00 Breakfast Lunch Supper Temperature 101.7 F H 100.7 F H 99.1 F Pt is very appreciative about being able to speak and eat. Tolerating PMV and PO well. Good potential for diet upgrade and improved upper pulmonary function with PMV. Continue sp/sw tx upon d/c.
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
--- NOTE | 2016-03-17 14:05 | PN ---
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 (short form) - Note 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: alert and speaking not tolerating PMV and requesting evalluation of breathing- respiratory therapy and nurse called Vital Signs Period Temp Pulse Resp BP Sys/Castanon Pulse Ox Last 24 Hr 98.5 F-101.7 F 69-84 16-27 105-148/55-80 98-99 cor-rrr llungs decreased bs at bases abd soft,nt +GT ext pedal edema bilateral CBC, BMP 03/15/16 06:35 03/16/16 06:40 cxray LLL atelectasis a/p intermittent fevers- suspect secondary to atelectasis encourage good chest PT observe off antibiotics d/w dr dave
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
[2016-03-18] MEDS: LOPERAMIDE HCL 1 MG/5 ML UNIT DOSE CUP PO PRN ×2 (01:44→21:42)
[2016-03-18] MEDS: ALBUTEROL SO4 2.5/IPRATROPIUM 0.5 INH SOL 3 ML VIAL.NEB. NEB SCH ×3 (05:17→18:35)
[2016-03-18] MEDS: INSULIN SLIDING SCALE (NOVOLOG) 1 VIAL SQ SCH ×4 (06:03→22:14)
[2016-03-18 08:32] LABS: CALCIUM 8.3 mg/dL (8.5-10.1); CREATININE 0.2 mg/dL (0.55-1.02); MAGNESIUM 2.1 mg/dL (1.8-2.4); PHOSPHOROUS 2.9 mg/dL (2.5-4.9)
[2016-03-18 08:34] LABS: POTASSIUM 3.8 mmol/L (3.5-5.1)
[2016-03-18] MEDS: AMINO ACIDS/PROTEIN HYDROLYS SUGAR-FREE 30 ML PACKET PO SCH ×2 (09:19→17:58)
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
[2016-03-18] MEDS ORDERED: PT OWN MED DRAWER 7, Y5N ONE (10:49)
[2016-03-18] MEDS: LACTOBACILLUS ACIDOPHILUS 1 TABLET PO SCH (10:51)
[2016-03-18] MEDS: predniSONE 10 MG TABLET (UD) PO SCH (10:52)
[2016-03-18] MEDS: PANTOPRAZOLE SOD 40 MG SUSPENSION PACKET GT SCH (10:52)
[2016-03-18] MEDS: FUROSEMIDE 20 MG TABLET (FP) GT SCH (10:52)
[2016-03-18] MEDS: HALOPERIDOL 0.5 MG TABLET PO SCH (10:52)
[2016-03-18] MEDS: HEPARIN NA (PORCINE) 5,000 UNITS/ML 1ML VIAL SQ SCH ×2 (10:52→21:42)
[2016-03-18] MEDS: SILVER SULFADIAZINE 1% TOP CREAM 50 GM JAR TP SCH ×2 (11:45→23:44)
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
[2016-03-18] MEDS: NYSTATIN 100,000 UNIT/GM TOPICAL CREAM 15 GM TUBE TP SCH ×2 (14:00→23:43)
--- NOTE | 2016-03-18 15:02 | PN ---
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, Physician Chief Complaint: CHART AND EVENTS REVIEWED 70 Y/O CHRONICALLY ILL WOMAN VENT DEPENDENT - Current Medication List Current Medications: Active Medications Acetaminophen (Tylenol Oral Solution -) 650 mg GT Q6H PRN PRN Reason: FEVER OR PAIN Last Admin: 03/17/16 02:58 Dose: 650 mg Albuterol/Ipratropium (Duoneb -) 1 amp NEB QIDR [facility] Last Admin: 03/18/16 12:50 Dose: 1 amp Amino Acids (Prostat Sugar-Free Packet -) 30 ml PO BID@0800,1730 [facility] Last Admin: 03/18/16 09:19 Dose: 30 ml Diphenhydramine HCl (Benadryl Injection -) 25 mg IVPUSH HS PRN PRN Reason: INSOMNIA Furosemide (Lasix -) 20 mg GT DAILY [facility] Last Admin: 03/18/16 10:52 Dose: 20 mg Haloperidol (Haldol -) 0.5 mg PO DAILY [facility] Last Admin: 03/18/16 10:52 Dose: 0.5 mg Heparin Sodium (Porcine) (Heparin -) 5,000 unit SQ BID [facility] Last Admin: 03/18/16 10:52 Dose: 5,000 unit Insulin Aspart (Novolog Vial Sliding Scale -) 1 vial SQ ACHS [facility] PRN Reason: Protocol Last Admin: 03/18/16 11:11 Dose: Not Given Lactobacillus Acidophilus (Bacid -) 1 tab PO DAILY [facility] Last Admin: 03/18/16 10:51 Dose: 1 tab Loperamide HCl (Imodium Liquid -) 1 mg PO QID PRN PRN Reason: DIARRHEA Last Admin: 03/18/16 01:44 Dose: 1 mg Nystatin (Mycostatin Cream -) 1 applic TP BID [facility] Last Admin: 03/17/16 22:26 Dose: 1 applic Pantoprazole Sodium (Protonix Packets For Oral Suspension -) 40 mg GT DAILY [facility] Last Admin: 03/18/16 10:52 Dose: 40 mg Prednisone (Deltasone -) 10 mg PO DAILY [facility] Last Admin: 03/18/16 10:52 Dose: 10 mg Silver Sulfadiazine (Silvadene -) 1 applic TP BID [facility] Last Admin: 03/17/16 22:26 Dose: 1 applic - Objective Vital Signs: Vital Signs Temperature 99.9 F H 03/18/16 14:00 Pulse Rate 72 03/18/16 14:00 Respiratory Rate 16 03/18/16 14:00 Blood Pressure 141/79 03/18/16 14:00 O2 Sat by Pulse Oximetry (%) 98 03/18/16 05:10 Constitutional: Yes: Mild Distress Eyes: Yes: WNL HENT: Yes: WNL Neck: Yes: WNL Cardiovascular: Yes: WNL Respiratory: Yes: Mechanically Ventilated Gastrointestinal: Yes: WNL Genitourinary: Yes: Lee Present Musculoskeletal: Yes: Muscle Weakness Extremities: Yes: Other Edema: Yes Integumentary: Yes: Pressure Ulcer, Rash, Skin Tear, Venous Stasis Changes Wound/Incision: Yes: Dressing Dry and Intact, Unapproximated Neurological: Yes: Pre-Existing Deficit ...Motor Strength: LUE, LLE, RUE, RLE Psychiatric: Yes: Other Labs: CBC, BMP 03/15/16 06:35 03/18/16 06:30 INR, PTT INR 1.31 (0.82-1.09) H 02/20/16 00:10 Problem List - Problems (1) Afib Code(s): I48.91 - UNSPECIFIED ATRIAL FIBRILLATION (2) COPD (chronic obstructive pulmonary disease) Code(s): J44.9 - CHRONIC OBSTRUCTIVE PULMONARY DISEASE, UNSPECIFIED Qualifiers : COPD type: unspecified COPD Qualified Code(s): J44.9 - Chronic obstructive pulmonary disease, unspecified (3) Chronic respiratory disease Code(s): J98.9 - RESPIRATORY DISORDER, UNSPECIFIED (4) Closed cervical spine fracture Code(s): S12.9XXA - FRACTURE OF NECK, UNSPECIFIED, INITIAL ENCOUNTER (5) Diabetes Code(s): E11.9 - TYPE 2 DIABETES MELLITUS WITHOUT COMPLICATIONS (6) Fever Code(s): R50.9 - FEVER, UNSPECIFIED Qualifiers: Fever type: unspecified Qualified Code(s): R50.9 - Fever, unspecified (7) GERD (gastroesophageal reflux disease) Code(s): K21.9 - GASTRO-ESOPHAGEAL REFLUX DISEASE WITHOUT ESOPHAGITIS (8) PEG tube malfunction Code(s): K94.23 - GASTROSTOMY MALFUNCTION (9) Paralysis Code(s): G83.9 - PARALYTIC SYNDROME, UNSPECIFIED (10) Ventilator dependent Code(s): Z99.11 - DEPENDENCE ON RESPIRATOR [VENTILATOR] STATUS Assessment/Plan FEVERS DOCUMENTED ID F/U , MULTIPLE SOURCES OF INFECTION WITH VENT, UTI, WOUNDS, PNA IV ABX VENT SUPPORT WOUND CARE TF CONTINUED, GTUBE FUNCTIONING CT SCAN RESULTS REVIEWED LABS AM TOMORROW
[2016-03-18] MEDS: ACETAMINOPHEN 650 MG/20.3 ML ORAL SOLUTION (CUPS) GT PRN (22:13)
[2016-03-19] MEDS: ALBUTEROL SO4 2.5/IPRATROPIUM 0.5 INH SOL 3 ML VIAL.NEB. NEB SCH ×4 (00:04→19:51)
[2016-03-19] MEDS: INSULIN SLIDING SCALE (NOVOLOG) 1 VIAL SQ SCH ×4 (06:02→22:20)
[2016-03-19 09:05] LABS: CALCIUM 8.2 mg/dL (8.5-10.1); MAGNESIUM 2.1 mg/dL (1.8-2.4); POTASSIUM 3.4 mmol/L (3.5-5.1)
[2016-03-19 09:07] LABS: CREATININE 0.3 mg/dL (0.55-1.02)
[2016-03-19] MEDS: AMINO ACIDS/PROTEIN HYDROLYS SUGAR-FREE 30 ML PACKET PO SCH ×2 (09:13→17:51)
[2016-03-19] MEDS: LACTOBACILLUS ACIDOPHILUS 1 TABLET PO SCH (09:21)
[2016-03-19] MEDS: HALOPERIDOL 0.5 MG TABLET PO SCH (09:21)
[2016-03-19] MEDS: PANTOPRAZOLE SOD 40 MG SUSPENSION PACKET GT SCH (09:21)
[2016-03-19] MEDS: HEPARIN NA (PORCINE) 5,000 UNITS/ML 1ML VIAL SQ SCH ×2 (09:21→22:19)
[2016-03-19] MEDS: predniSONE 10 MG TABLET (UD) PO SCH (09:21)
[2016-03-19] MEDS: FUROSEMIDE 20 MG TABLET (FP) GT SCH (09:21)
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
[2016-03-19] MEDS: NYSTATIN 100,000 UNIT/GM TOPICAL CREAM 15 GM TUBE TP SCH ×2 (11:30→22:20)
[2016-03-19] MEDS ORDERED: POTASSIUM CHLORIDE 40 MEQ/30 ML UNIT DOSE CUP GT ONE (12:35)
--- NOTE | 2016-03-19 14:01 | PN ---
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, Physician Chief Complaint: ASLEEP +TRACH COLLAR - Current Medication List Current Medications: Active Medications Acetaminophen (Tylenol Oral Solution -) 650 mg GT Q6H PRN PRN Reason: FEVER OR PAIN Last Admin: 03/18/16 22:13 Dose: 650 mg Albuterol/Ipratropium (Duoneb -) 1 amp NEB QIDR [facility] Last Admin: 03/19/16 11:23 Dose: 1 amp Amino Acids (Prostat Sugar-Free Packet -) 30 ml PO BID@0800,1730 [facility] Last Admin: 03/19/16 09:13 Dose: 30 ml Diphenhydramine HCl (Benadryl Injection -) 25 mg IVPUSH HS PRN PRN Reason: INSOMNIA Furosemide (Lasix -) 20 mg GT DAILY [facility] Last Admin: 03/19/16 09:21 Dose: 20 mg Haloperidol (Haldol -) 0.5 mg PO DAILY [facility] Last Admin: 03/19/16 09:21 Dose: 0.5 mg Heparin Sodium (Porcine) (Heparin -) 5,000 unit SQ BID [facility] Last Admin: 03/19/16 09:21 Dose: 5,000 unit Insulin Aspart (Novolog Vial Sliding Scale -) 1 vial SQ ACHS [facility] PRN Reason: Protocol Last Admin: 03/19/16 11:30 Dose: Not Given Lactobacillus Acidophilus (Bacid -) 1 tab PO DAILY [facility] Last Admin: 03/19/16 09:21 Dose: 1 tab Loperamide HCl (Imodium Liquid -) 1 mg PO QID PRN PRN Reason: DIARRHEA Last Admin: 03/18/16 21:42 Dose: 1 mg Nystatin (Mycostatin Cream -) 1 applic TP BID [facility] Last Admin: 03/18/16 23:43 Dose: 1 applic Pantoprazole Sodium (Protonix Packets For Oral Suspension -) 40 mg GT DAILY [facility] Last Admin: 03/19/16 09:21 Dose: 40 mg Prednisone (Deltasone -) 10 mg PO DAILY [facility] Last Admin: 03/19/16 09:21 Dose: 10 mg Silver Sulfadiazine (Silvadene -) 1 applic TP BID [facility] Last Admin: 03/18/16 23:44 Dose: 1 applic - Objective Vital Signs: Vital Signs Temperature 99 F 03/19/16 06:15 Pulse Rate 61 03/19/16 09:05 Respiratory Rate 27 H 03/19/16 10:05 Blood Pressure 140/80 03/19/16 09:05 O2 Sat by Pulse Oximetry (%) 98 03/18/16 11:00 Constitutional: Yes: Mild Distress Eyes: Yes: WNL HENT: Yes: WNL, Tonsillar Exudate Cardiovascular: Yes: WNL Respiratory: Yes: Mechanically Ventilated Gastrointestinal: Yes: WNL Genitourinary: Yes: Lee Present Musculoskeletal: Yes: Muscle Weakness Extremities: Yes: Other Edema: Yes Peripheral Pulses WNL: Yes Integumentary: Yes: Erythema, Pressure Ulcer, Venous Stasis Changes Wound/Incision: Yes: Open to air, Dressing Dry and Intact Neurological: Yes: Pre-Existing Deficit, Unsteady Gait, Weakness ...Motor Strength: LLE, RLE Psychiatric: Yes: Other Labs: CBC, BMP 03/15/16 06:35 03/19/16 07:00 INR, PTT INR 1.31 (0.82-1.09) H 02/20/16 00:10 Problem List - Problems (1) Afib Code(s): I48.91 - UNSPECIFIED ATRIAL FIBRILLATION (2) COPD (chronic obstructive pulmonary disease) Code(s): J44.9 - CHRONIC OBSTRUCTIVE PULMONARY DISEASE, UNSPECIFIED Qualifiers : COPD type: unspecified COPD Qualified Code(s): J44.9 - Chronic obstructive pulmonary disease, unspecified (3) Chronic respiratory disease Code(s): J98.9 - RESPIRATORY DISORDER, UNSPECIFIED (4) Closed cervical spine fracture Code(s): S12.9XXA - FRACTURE OF NECK, UNSPECIFIED, INITIAL ENCOUNTER (5) Diabetes Code(s): E11.9 - TYPE 2 DIABETES MELLITUS WITHOUT COMPLICATIONS (6) Fever Code(s): R50.9 - FEVER, UNSPECIFIED Qualifiers: Fever type: unspecified Qualified Code(s): R50.9 - Fever, unspecified (7) GERD (gastroesophageal reflux disease) Code(s): K21.9 - GASTRO-ESOPHAGEAL REFLUX DISEASE WITHOUT ESOPHAGITIS (8) PEG tube malfunction Code(s): K94.23 - GASTROSTOMY MALFUNCTION (9) Paralysis Code(s): G83.9 - PARALYTIC SYNDROME, UNSPECIFIED (10) Ventilator dependent Code(s): Z99.11 - DEPENDENCE ON RESPIRATOR [VENTILATOR] STATUS Assessment/Plan FEVERS DOCUMENTED ID F/U , MULTIPLE SOURCES OF INFECTION WITH VENT, UTI, WOUNDS, PNA IV ABX VENT SUPPORT WOUND CARE TF CONTINUED, GTUBE FUNCTIONING CT SCAN RESULTS REVIEWED LABS AM TOMORROW
[2016-03-19] MEDS: SILVER SULFADIAZINE 1% TOP CREAM 50 GM JAR TP SCH ×2 (17:51→22:20)
[2016-03-19] MEDS ORDERED: PT OWN MED DRAWER 7, Y5N ONE (18:35)
[2016-03-20] MEDS: ALBUTEROL SO4 2.5/IPRATROPIUM 0.5 INH SOL 3 ML VIAL.NEB. NEB SCH ×4 (00:10→17:42)
[2016-03-20] MEDS: INSULIN SLIDING SCALE (NOVOLOG) 1 VIAL SQ SCH ×3 (05:59→16:23)
[2016-03-20 07:47] LABS: HEMATOCRIT 27.1 % (32.4-45.2); HEMOGLOBIN 9.3 GM/dL (10.7-15.3); MCH 31.9 pg (25.7-33.7); MCHC 34.4 g/dl (32.0-36.0); MEAN CELL VOLUME 92.8 fl (80-96); MEAN PLT VOLUME 7.8 fl (7.5-11.1); PLATELET COUNT 177 K/MM3 (134-434); RBC 2.92 M/mm3 (3.60-5.2); WHITE BLOOD COUNT 6.1 K/mm3 (4.0-10.0)
[2016-03-20 08:22] LABS: CHLORIDE 98 mmol/L (98-107); POTASSIUM 3.6 mmol/L (3.5-5.1); SODIUM 138 mmol/L (136-145)
[2016-03-20 08:59] LABS: ALBUMIN 2.6 g/dl (3.4-5.0); ALK PHOS 35 U/L (45-117); ANION GAP 11 (8-16); BILIRUBIN,TOTAL 0.3 mg/dL (0.2-1.0); BLOOD UREA NITROGEN 21 mg/dL (7-18); CALCIUM 8.7 mg/dL (8.5-10.1); CO2 29 mmol/L (21-32); CREATININE 0.3 mg/dL (0.55-1.02); GLUCOSE,RANDOM 108 mg/dL (74-106); SGOT/AST 11 U/L (15-37); SGPT/ALT 12 U/L (12-78); TOT PROT 5.1 g/dl (6.4-8.2)
[2016-03-20] MEDS: LACTOBACILLUS ACIDOPHILUS 1 TABLET PO SCH (09:25)
[2016-03-20] MEDS: AMINO ACIDS/PROTEIN HYDROLYS SUGAR-FREE 30 ML PACKET PO SCH ×2 (09:25→16:31)
[2016-03-20] MEDS: PANTOPRAZOLE SOD 40 MG SUSPENSION PACKET GT SCH (09:25)
[2016-03-20] MEDS: FUROSEMIDE 20 MG TABLET (FP) GT SCH (09:25)
[2016-03-20] MEDS: HALOPERIDOL 0.5 MG TABLET PO SCH (09:25)
[2016-03-20] MEDS: HEPARIN NA (PORCINE) 5,000 UNITS/ML 1ML VIAL SQ SCH (09:25)
[2016-03-20] MEDS: predniSONE 10 MG TABLET (UD) PO SCH (09:26)
[2016-03-20 10:29] VITALS: TEMP 98.4
[2016-03-20] MEDS: SILVER SULFADIAZINE 1% TOP CREAM 50 GM JAR TP SCH (11:15)
[2016-03-20] MEDS: NYSTATIN 100,000 UNIT/GM TOPICAL CREAM 15 GM TUBE TP SCH (11:16)
--- NOTE | 2016-03-20 12:56 | PN ---
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 (short form) - Note 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: PULMONARY Tolerating PMV. Denies shortness of breath or chest pain. No fevers recorded. Last Vital Signs Temp Pulse Resp BP Pulse Ox 98.4 F 66 17 126/60 99 03/20/16 10:00 03/20/16 10:00 03/20/16 10:00 03/20/16 10:00 03/20/16 09:00 Gen: NAD on vent Heart: RRR Lung: decreased breath sounds left base Abd: soft, nontender Ext: no edema CBC, BMP 03/20/16 07:00 03/20/16 07:00 Active Medications Acetaminophen (Tylenol Oral Solution -) 650 mg GT Q6H PRN PRN Reason: FEVER OR PAIN Last Admin: 03/18/16 22:13 Dose: 650 mg Albuterol/Ipratropium (Duoneb -) 1 amp NEB QIDR [facility] Last Admin: 03/20/16 06:14 Dose: 1 amp Amino Acids (Prostat Sugar-Free Packet -) 30 ml PO BID@0800,1730 [facility] Last Admin: 03/20/16 09:25 Dose: 30 ml Diphenhydramine HCl (Benadryl Injection -) 25 mg IVPUSH HS PRN PRN Reason: INSOMNIA Furosemide (Lasix -) 20 mg GT DAILY [facility] Last Admin: 03/20/16 09:25 Dose: 20 mg Haloperidol (Haldol -) 0.5 mg PO DAILY [facility] Last Admin: 03/20/16 09:25 Dose: 0.5 mg Heparin Sodium (Porcine) (Heparin -) 5,000 unit SQ BID [facility] Last Admin: 03/20/16 09:25 Dose: 5,000 unit Insulin Aspart (Novolog Vial Sliding Scale -) 1 vial SQ ACHS [facility] PRN Reason: Protocol Last Admin: 03/20/16 11:12 Dose: Not Given Lactobacillus Acidophilus (Bacid -) 1 tab PO DAILY [facility] Last Admin: 03/20/16 09:25 Dose: 1 tab Loperamide HCl (Imodium Liquid -) 1 mg PO QID PRN PRN Reason: DIARRHEA Last Admin: 03/18/16 21:42 Dose: 1 mg Nystatin (Mycostatin Cream -) 1 applic TP BID [facility] Last Admin: 03/20/16 11:16 Dose: 1 applic Pantoprazole Sodium (Protonix Packets For Oral Suspension -) 40 mg GT DAILY [facility] Last Admin: 03/20/16 09:25 Dose: 40 mg Prednisone (Deltasone -) 10 mg PO DAILY [facility] Last Admin: 03/20/16 09:26 Dose: 10 mg Silver Sulfadiazine (Silvadene -) 1 applic TP BID [facility] Last Admin: 03/20/16 11:15 Dose: 1 applic A/P Chronic Respiratory Failure Pneumonia Left Atelectasis COPD Atrial Fibrillation GERD Hyponatremia - PMV as long as tolerated during day, rest at night - taper off prednisone - inhaled bronchodilators - PO as tolerated - DVT/GI prophylaxis
--- NOTE | 2016-03-20 13:16 | PN ---
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, Physician Chief Complaint: low grade temp yesterday - Current Medication List Current Medications: Active Medications Acetaminophen (Tylenol Oral Solution -) 650 mg GT Q6H PRN PRN Reason: FEVER OR PAIN Last Admin: 03/18/16 22:13 Dose: 650 mg Albuterol/Ipratropium (Duoneb -) 1 amp NEB QIDR [facility] Last Admin: 03/20/16 11:15 Dose: 1 amp Amino Acids (Prostat Sugar-Free Packet -) 30 ml PO BID@0800,1730 [facility] Last Admin: 03/20/16 09:25 Dose: 30 ml Diphenhydramine HCl (Benadryl Injection -) 25 mg IVPUSH HS PRN PRN Reason: INSOMNIA Furosemide (Lasix -) 20 mg GT DAILY [facility] Last Admin: 03/20/16 09:25 Dose: 20 mg Haloperidol (Haldol -) 0.5 mg PO DAILY [facility] Last Admin: 03/20/16 09:25 Dose: 0.5 mg Heparin Sodium (Porcine) (Heparin -) 5,000 unit SQ BID [facility] Last Admin: 03/20/16 09:25 Dose: 5,000 unit Insulin Aspart (Novolog Vial Sliding Scale -) 1 vial SQ ACHS [facility] PRN Reason: Protocol Last Admin: 03/20/16 11:12 Dose: Not Given Lactobacillus Acidophilus (Bacid -) 1 tab PO DAILY [facility] Last Admin: 03/20/16 09:25 Dose: 1 tab Loperamide HCl (Imodium Liquid -) 1 mg PO QID PRN PRN Reason: DIARRHEA Last Admin: 03/18/16 21:42 Dose: 1 mg Nystatin (Mycostatin Cream -) 1 applic TP BID [facility] Last Admin: 03/20/16 11:16 Dose: 1 applic Pantoprazole Sodium (Protonix Packets For Oral Suspension -) 40 mg GT DAILY [facility] Last Admin: 03/20/16 09:25 Dose: 40 mg Prednisone (Deltasone -) 10 mg PO DAILY [facility] Last Admin: 03/20/16 09:26 Dose: 10 mg Silver Sulfadiazine (Silvadene -) 1 applic TP BID [facility] Last Admin: 03/20/16 11:15 Dose: 1 applic - Objective Vital Signs: Vital Signs Temperature 98.4 F 03/20/16 10:00 Pulse Rate 66 03/20/16 10:00 Respiratory Rate 17 03/20/16 10:00 Blood Pressure 126/60 03/20/16 10:00 O2 Sat by Pulse Oximetry (%) 99 03/20/16 09:00 Constitutional: Yes: Calm HENT: Yes: Other (trach) Cardiovascular: Yes: Regular Rate and Rhythm, S1, S2 Respiratory: Yes: CTA Bilaterally (in upper zones), Diminished (at bases) Gastrointestinal: Yes: Normal Bowel Sounds, Soft, Other (g tube) Neurological: Yes: Alert Labs: CBC, BMP 03/20/16 07:00 03/20/16 07:00 INR, PTT INR 1.31 (0.82-1.09) H 02/20/16 00:10 Problem List - Problems (1) Hypokalemia Assessment/Plan: resolved Code(s): E87.6 - HYPOKALEMIA (2) Atelectasis of left lung Assessment/Plan: low grade temp sec to atelectasis seen by ID no abx good chest PT needed Code(s): J98.11 - ATELECTASIS (3) Afib Assessment/Plan: restart aspirin heparin subQ Code(s): I48.91 - UNSPECIFIED ATRIAL FIBRILLATION (4) Hyponatremia Assessment/Plan: improved' lasix stopped Code(s): E87.1 - HYPO-OSMOLALITY AND HYPONATREMIA (5) Mood disorder Assessment/Plan: haldol Code(s): F39 - UNSPECIFIED MOOD [AFFECTIVE] DISORDER Assessment/Plan patient is stable for discharge today
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
--- NOTE | 2016-03-20 13:41 | PN ---
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 Doing very well on PMV. Voice is stronger. Tolerating diet well. REC: PMV increasing time, to facilitate ability to wean from ventilator. trial dysphagia chopped,tuna, egg salad, cottage cheese RD consult to facilitate weaning from PEG. Potential to wean from ventilator?
[2016-03-20 15:39] VITALS: BP 154/80; PULSE 64
[2016-03-21] MEDS ORDERED: NICOTINE 7 MG/24 HOURS TOPICAL PATCH TD SCH (10:00)
[2016-03-21] MEDS ORDERED: ASPIRIN COATED 81 MG TABLET.EC PO SCH (10:00)
== END 2016-03-20 18:24 | DRG 207 ==
LOC: JER 23:16 → JERBED 02-20 02:09 → UNDOADMIN 02-20 02:09 → JERBED 02-20 02:31 → J5S 02-20 04:49
PROVIDERS: ADMIT Family Medicine; ATTEND Family Medicine
PROC: 5A1955Z Respiratory Ventilation, Greater than 96 Consecutive Hours (ICD-10-PCS; principal; 2016-02-20)
PROC: 0BJ08ZZ Inspection of Tracheobronchial Tree, Via Natural or Artificial Opening Endoscopic (ICD-10-PCS; 2016-03-13)
DX: J44.1 Chronic obstructive pulmonary disease with (acute) exacerbation (principal); G82.50 Quadriplegia, unspecified; J15.211 Pneumonia due to Methicillin susceptible Staphylococcus aureus; Z99.11 Dependence on respirator [ventilator] status; E87.1 Hypo-osmolality and hyponatremia; J98.11 Atelectasis; J96.10 Chronic respiratory failure, unspecified whether with hypoxia or hypercapnia; K94.23 Gastrostomy malfunction; N39.0 Urinary tract infection, site not specified; K21.9 Gastro-esophageal reflux disease without esophagitis; I48.91 Unspecified atrial fibrillation; E87.6 Hypokalemia; F39 Unspecified mood [affective] disorder; E11.9 Type 2 diabetes mellitus without complications; F41.9 Anxiety disorder, unspecified; Z93.0 Tracheostomy status; R31.9 Hematuria, unspecified; E87.70 Fluid overload, unspecified; R19.7 Diarrhea, unspecified; E83.39 Other disorders of phosphorus metabolism; Y83.8 Other surgical procedures as the cause of abnormal reaction of the patient, or of later complication, without mention of misadventure at the time of the procedure
CPT/HCPCS: 36415; 36600; 71010-TC; 71250-TC; 74000-TC; 74176-TC; 74177-TC; 74178-TC; 74230-TC; 76604-TC; 76775-TC; 76856-TC; 80048; 80053; 81003; 81015; 82550; 82803; 83605; 83735; 83930; 83935; 84100; 84132; 84300; 84484; 85025; 85027; 85610; 85651; 85730; 86140; 86850; 86900; 86901; 87040; 87045; 87046; 87070; 87086; 87102; 87116; 87177; 87186; 87205; 87206; 87207; 87209; 87210; 87254; 87324; 87328; 87329; 87449; 87804; 87899; 88108; 88305-TC; 92611-GN; 93005; 93010; 94002; 94640; 94760; 97001-GP; 99284-25; G0480; J0131; J1644; J7030